=== PATIENT | female | born 1950 | race Caucasian/White ===

== ENCOUNTER → 2016-07-12 | Outpatient (CLI) | payer OTHER ==
[~2016-07-12] MED LIST: ATV/1 PO; CALC-51 PO; CHOL100010 PO; CIPR-255 PO; DNSIS60 IM; ESCI1TAB10 PO; IBAN150T PO; LEVO25TA5 PO; MELO15TA4 PO; METR-163 PO; MULT-506 PO; NRN/300 PO; OMEP20TA PO; OXYC-57 PO; OXYC5TAB PO; RIVA1TAB4 PO; TRAM-10 PO; ZNTT/150 PO; xarelto PO
[2016-07-12 13:07] LABS: ALT/SGPT 24 U/L (12-78); AST/SGOT 16 U/L (15-37); BLOOD UREA NITROGEN 18 mg/dl (7-18); BUN/CREATININE RATIO 21.3 (10-20); CALCIUM 8.7 mg/dl (8.5-10.1); CARBON DIOXIDE 26 mmol/L (21-32); CHLORIDE 104 mmol/L (98-107); CHOLESTEROL 155 mg/dl (0-200); CREATININE 0.86 mg/dl (0.60-1.20); GLUCOSE 94 mg/dl (70-99); POTASSIUM 3.7 mmol/L (3.5-5.1); SODIUM 142 mmol/L (136-145)
[2016-07-12 13:18] LABS: ALKALINE PHOSPHATASE 56 U/L (45-117); CHOLESTEROL/HDL RATIO 2.3; HDL CHOLESTEROL 67 mg/dl; LDL CHOLESTEROL CALCULATED 54 mg/dl; TRIGLYCERIDES 170 mg/dl (0-150); VERY LOW DENSITY LIPOPROT CALC 34 mg/dl
== END | disposition home or self-care (01) ==
LOC: C.LABBFT 09:47
PROVIDERS: ATTEND Nurse Practitioner
DX: E03.9 Hypothyroidism, unspecified (principal); Z13.6 Encounter for screening for cardiovascular disorders

== ENCOUNTER → 2016-07-21 | Outpatient (CLI) | payer OTHER ==
--- NOTE | 2016-07-21 08:36 | DIAGNOSTIC IMAGING REPORT ---
ABDOMINAL ULTRASOUND, RIGHT UPPER QUADRANT HISTORY: Right upper quadrant abdominal pain.. COMPARISON: None. FINDINGS: Pancreas: The pancreatic head and tail are obscured by overlying bowel gas. The remaining portions of the pancreas are within normal limits. Liver: Unremarkable. Gallbladder: No gallbladder wall thickening. No gallstones. CBD: 3 mm. Right kidney: Hypoechoic focus within the right renal sinus which may represent a peripelvic cyst versus prominent renal pelvis. No definite hydronephrosis. IMPRESSION: 1. Normal gallbladder. No gallstones. 2. Pancreas is not well visualized due to the overlying bowel gas. 3. Parapelvic cyst versus prominent right renal pelvis. No definite hydronephrosis. Electronically signed by: Carlos Black M.D. 07/21/2016 8:34 AM Dictated Date/Time: 07/21/2016 8:33 AM
== END | disposition home or self-care (01) ==
LOC: C.ULTR 07:58
PROVIDERS: ATTEND Nurse Practitioner
DX: R10.11 Right upper quadrant pain (principal)

== ENCOUNTER → 2016-08-07 | Outpatient (CLI) | payer OTHER ==
[~2016-08-07] MED LIST changes: +SINCALIDE IV SCH; +SODIUM CHLORIDE 0.9% IV SCH
--- NOTE | 2016-08-07 10:36 | DIAGNOSTIC IMAGING REPORT ---
NUCLEAR HEPATOBILIARY SCAN WITH EJECTION FRACTION IMAGING CLINICAL HISTORY: Postprandial right upper quadrant abdominal pain. COMPARISON STUDY: Abdominal ultrasound dated 07/21/2016. TECHNIQUE: Dynamic images of the liver and anterior abdomen were obtained every 20 minutes for a total of 60 minutes following the IV administration of 5.5mCi of technetium 99m Choletec. Further imaging was not obtained due to back pain. 1.24 mcg of sincalide was then injected with additional images acquired every 5 minutes for 45 minutes to calculate the gallbladder ejection fraction. FINDINGS: The hepatobiliary scan shows prompt and homogeneous hepatic uptake. There is visualized activity within the intra and extrahepatic biliary tree at 20 minutes, and within the gallbladder at 20 minutes. There is normal biliary to bowel transit, with small bowel visualized by 40 minutes. On the sincalide imaging, the gallbladder ejection fraction was measured at 89%. IMPRESSION: 1. Unremarkable nuclear hepatobiliary scan. There is no scintigraphic evidence of cholecystitis. 2. The gallbladder ejection fraction measured 89% which is normal. Electronically signed by: Wolf Torres M.D. 08/07/2016 10:35 AM Dictated Date/Time: 08/07/2016 10:33 AM
== END | disposition home or self-care (01) ==
LOC: C.NUCL 07:52
PROVIDERS: ATTEND Nurse Practitioner
DX: R10.11 Right upper quadrant pain (principal)

== ENCOUNTER 2016-08-30 17:34 | Inpatient (IN) | payer OTHER ==
[~2016-08-30] VITALS: Ht 147.3 cm; Wt 62.4 kg
[~2016-08-30 17:34] MED LIST changes: -ATV/1 PO; -CIPR-255 PO; -IBAN150T PO; -METR-163 PO; -OPTIRAY 320 IV PRN; -OXYC-57 PO
[2016-08-30] MEDS ORDERED: ONDANSETRON INJ 2 MG/ML 2 ML VIAL IV STA (17:45)
[2016-08-30] MEDS ORDERED: HYDROmorphone INJ 0.5 MG/0.5 ML SYR IV STA (17:45)
[2016-08-30] MEDS ORDERED: PIPERACILLIN/TAZOBACTAM 4.5 GM/100ML D5W IV STA (17:45)
[2016-08-30] MEDS ORDERED: IBAN150T PO (17:59)
[2016-08-30] MEDS ORDERED: ATV/1 PO (17:59)
[2016-08-30 18:27] LABS: BUN/CREATININE RATIO 12.9 (10-20); CREATININE 0.83 mg/dl (0.60-1.20); POTASSIUM 3.3 mmol/L (3.5-5.1)
--- NOTE | 2016-08-30 18:30 | EMERGENCY ROOM VISIT NOTE ---
History Report prepared by Sharmila: Clare Doe Under the Supervision of: Rissa NessO. First contact with patient: 17:36 Stated Complaint: perfed divertic History of Present Illness The patient is a 65 year old female who presents to the Emergency Room with complaints of worsening lower abdominal pain for the past 3 days. She was straining to have a bowel movement around 6pm 3 days ago and developed severe lower abdominal pain while trying to defecate. Her pain is bilateral, but worse in the LLQ. The next day she felt better but experienced the same pain again when having a bowel movement. She experienced diarrhea at that time. The patient has been experiencing crampy, lower abdominal pain since then. Last night and this morning her symptoms were worse and she developed associated nausea. She reports a fever with a temperature of 100.6. earlier today. The patient went to her PCP today and was sent to the hospital for an outpatient CT scan. This revealed perforated sigmoid diverticulitis with a 2x2x0.8cm contrast and gas containing fluid collection. She was sent to the ED for further evaluation. The patient denies vomiting, cough, and urinary symptoms. Source of History: patient Onset: 3 days ago Position: abdomen (LLQ) Symptom Intensity: severe Quality: cramping Timing: worsening Modifying Factors (Worsening): defecation Associated Symptoms: + diarrhea, + fevers, + nausea, No cough, No urinary symptoms, No vomiting Review of Systems See HPI for pertinent positives & negatives. A total of 10 systems reviewed and were otherwise negative. Past Medical & Surgical Medical Problems: (1) Diverticulitis (2) Paraesophageal hernia (3) Pulmonary embolism Surgical Problems: (1) H/O tubal ligation (2) History of appendectomy Family History No pertinent history stated. Social History Smoking Status: Never Smoker Marital Status: Housing Status: lives with significant other Current/Historical Medications Scheduled Calcium Carbonate-Vitamin D (Calcium), 3 TAB PO TID Cholecalciferol (Vitamin D), 1,000 INTER.UNIT PO QAM Ibandronate Sodium (Boniva), 150 MG PO MONTHLY Levothyroxine Sodium (Levothyroxine Sodium), 1 TAB PO QAM Meloxicam (Meloxicam), 15 MG PO HS Multivitamin (Multivitamin), 1 TAB PO QAM Allergies Coded Allergies: NO KNOWN DRUG ALLERGIES (Verified Allergy, Unknown, ., 08/30/16) Physical Exam Vital Signs Date Time Temp Pulse Resp B/P Pulse Ox O2 Delivery O2 Flow Rate FiO2 08/30/16 18:08 94 08/30/16 17:44 37.3 101 12 118/75 Physical Exam GENERAL: alert, sitting up in bed, well appearing, well nourished, no distress, non-toxic EYE EXAM: normal conjunctiva OROPHARYNX: no exudate, no erythema, lips, buccal mucosa, and tongue normal and mucous membranes are moist NECK: supple, no nuchal rigidity, no adenopathy, non-tender LUNGS: Clear to auscultation. Normal chest wall mechanics HEART: no murmurs, S1 normal and S2 normal ABDOMEN: abdomen soft, tender to palpation of LLQ, normo-active bowel sounds, no masses, no rebound or guarding. BACK: Back is symmetrical on inspection and there is no deformity, no midline tenderness, no CVA tenderness. SKIN: no rashes and no bruising UPPER EXTREMITIES: upper extremities are grossly normal. LOWER EXTREMITIES: No pitting edema. NEURO EXAM: Normal sensorium, cranial nerves II-XII grossly intact, normal speech, no gross weakness of arms, no gross weakness of legs. Medical Decision & Procedures Laboratory Results 08/30/16 17:55 Red Blood Count 4.06, Mean Corpuscular Volume 93.6, Mean Corpuscular Hemoglobin 31.8, Mean Corpuscular Hemoglobin Concent 33.9, Mean Platelet Volume 10.8, Neutrophils (%) (Auto) 76.5, Lymphocytes (%) (Auto) 14.4, Monocytes (%) (Auto) 8.5, Eosinophils (%) (Auto) 0.2, Basophils (%) (Auto) 0.2, Neutrophils # (Auto) 9.62, Lymphocytes # (Auto) 1.80, Monocytes # (Auto) 1.06, Eosinophils # (Auto) 0.02, Basophils # (Auto) 0.02 08/30/16 17:55 Test 08/30/16 17:55 08/30/16 18:12 08/30/16 18:42 White Blood Count 12.54 K/uL (4.8-10.8) Red Blood Count 4.06 M/uL (4.2-5.4) Hemoglobin 12.9 g/dL (12.0-16.0) Hematocrit 38.0 % (37-47) Mean Corpuscular Volume 93.6 fL (80-100) Mean Corpuscular Hemoglobin 31.8 pg (25-34) Mean Corpuscular Hemoglobin Concent 33.9 g/dl (32-36) Platelet Count 235 K/uL (130-400) Mean Platelet Volume 10.8 fL (7.4-10.4) Neutrophils (%) (Auto) 76.5 % Lymphocytes (%) (Auto) 14.4 % Monocytes (%) (Auto) 8.5 % Eosinophils (%) (Auto) 0.2 % Basophils (%) (Auto) 0.2 % Neutrophils # (Auto) 9.62 K/uL (1.4-6.5) Lymphocytes # (Auto) 1.80 K/uL (1.2-3.4) Monocytes # (Auto) 1.06 K/uL (0.11-0.59) Eosinophils # (Auto) 0.02 K/uL (0-0.5) Basophils # (Auto) 0.02 K/uL (0-0.2) RDW Standard Deviation 47.5 fL (36.4-46.3) RDW Coefficient of Variation 13.9 % (11.5-14.5) Immature Granulocyte % (Auto) 0.2 % Immature Granulocyte # (Auto) 0.02 K/uL (0.00-0.02) Prothrombin Time 11.2 SECONDS (9.0-12.0) Prothromb Time International Ratio 1.0 (0.9-1.1) Anion Gap 10.0 mmol/L (3-11) Est Creatinine Clear Calc Drug Dose 54.2 ml/min Estimated GFR () 87.0 Estimated GFR (Non- 75.0 BUN/Creatinine Ratio 12.9 (10-20) Calcium Level 9.0 mg/dl (8.5-10.1) Total Bilirubin 1.2 mg/dl (0.2-1) Direct Bilirubin 0.3 mg/dl (0-0.2) Aspartate Amino Transf (AST/SGOT) 8 U/L (15-37) Alanine Aminotransferase (ALT/SGPT) 19 U/L (12-78) Alkaline Phosphatase 75 U/L (45-117) Total Protein 7.5 gm/dl (6.4-8.2) Albumin 3.1 gm/dl (3.4-5.0) Lipase 133 U/L (73-393) Lactic Acid Level 0.9 mmol/L (0.4-2.0) Urine Color YELLOW Urine Appearance CLEAR (CLEAR) Urine pH 7.0 (4.5-7.5) Urine Specific [place] 1.045 (1.000-1.030) Urine Protein NEG (NEG) Urine Glucose (UA) NEG (NEG) Urine Ketones TRACE (NEG) Urine Occult Blood 1+ (NEG) Urine Nitrite NEG (NEG) Urine Bilirubin NEG (NEG) Urine Urobilinogen NEG (NEG) Urine Leukocyte Esterase NEG (NEG) Urine WBC (Auto) /hpf (0-5) Urine RBC (Auto) /hpf (0-4) Urine Hyaline Casts (Auto) /lpf (0-5) Urine Epithelial Cells (Auto) /lpf (0-5) Urine Bacteria (Auto) (NEG) Urine RBC 5-10 /hpf (0-4) Urine WBC 1-5 /hpf (0-5) Urine Epithelial Cells 0-5 /lpf (0-5) Urine Bacteria 1+ (NEG) Laboratory results per my review. Medications Administered Medications (Trade) Dose Ordered Sig/Triny Route Start Time Stop Time Status Last Admin Dose Admin Piperacillin Sod/ Tazobactam Sod (Zosyn Iv) 4.5 gm NOW STAT IV 08/30/16 17:45 08/30/16 17:46 DC 08/30/16 18:41 4.5 GM Hydromorphone HCl (Dilaudid Inj) 0.5 mg NOW STAT IV 08/30/16 17:45 08/30/16 17:46 DC 08/30/16 18:00 0.5 MG Ondansetron HCl (Zofran Inj) 4 mg NOW STAT IV 08/30/16 17:45 08/30/16 17:46 DC 08/30/16 18:00 4 MG ED Course ED COURSE: Vital signs were reviewed and showed tachycardia. The patients medical record was reviewed The above diagnostic studies were performed and reviewed. ED treatments and interventions as stated above. 1736: The patient was evaluated in room C8. A complete history and physical examination was performed. 1745: Zofran 4 mg IV, Dilaudid 0.5 mg IV, Zosyn 4.5 gm IV 1806: At this time I spoke with Dr. Flowers of general surgery. We discussed the patient's results and treatment plan. He will come to the ED to evaluate the patient for further management. 1813: Upon reevaluation, the patient is resting more comfortably. I discussed my findings with the patient and she understands and agrees with the treatment plan. Based on the patients age, coexisting illnesses, exam and lab findings the decision to treat as an inpatient was made. The patient remained stable while under my care. The patient will be evaluated for further management. Medical Decision Differential diagnoses includes but is not limited to gastritis, peptic ulcer disease, GERD, gallbladder disease, pancreatitis, small bowel obstruction, acute coronary syndrome, pericarditis, ischemic bowel, irritable bowel disease, irritable bowel syndrome, appendicitis, diverticulitis, malignancy, hernia, urinary tract infection, torsion, perforation, trauma, infectious. Patient is a 65-year-old female who presents to the ER for 4 days worth of left lower quadrant abdominal pain. This has been present and worsening over this time. She was worked up by her primary care doctor and had a CT done with blood work. Labs show a leukocytosis of 12,000 along with a mild hypokalemia. CT shows a perforated diverticulitis with a 2 x 2 centimeter fluid collection. Upon presentation IV was immediately established and blood cultures were obtained. She was given IV antibiotics along with IV Dilaudid. Surgery was consulted and she was evaluated at bedside. She is admitted to general surgery. Consults Time Called: 1750 Consulting Physician: Dr. Flowers Returned Call: [phone] At this time I spoke with Dr. Flowers of general surgery. We discussed the patient's results and treatment plan. He will come to the ED to evaluate the patient for further management. Impression Primary Impression: Perforated diverticulum Additional Impressions: Leukocytosis Hypokalemia Scribe Attestation The scribe's documentation has been prepared under my direction and personally reviewed by me in its entirety. I confirm that the note above accurately reflects all work, treatment, procedures, and medical decision making performed by me. Departure Information Dispostion Being Evaluated By Surgeon Jeff Crawford M.D. (PCP) Problem Qualifiers Additional Impressions: Leukocytosis Leukocytosis type: unspecified Qualified Codes: D72.829 - Elevated white blood cell count, unspecified
[2016-08-30 18:39] LABS: BASO % 0.2 %; BASO ABS # 0.02 K/uL (0-0.2); COMPLETE YES; EOS % 0.2 %; IG% 0.2 %; LYMPH % 14.4 %; MEAN CELL VOLUME 93.6 fL (80-100); MEAN CORPUSCULAR HEMOGLOBIN 31.8 pg (25-34); MEAN CORPUSCULAR HGB CONC 33.9 g/dl (32-36); MEAN PLATELET VOLUME 10.8 fL (7.4-10.4); MONO % 8.5 %; NEUT % 76.5 %; PLATELET COUNT 235 K/uL (130-400); RED BLOOD COUNT 4.06 M/uL (4.2-5.4); WHITE BLOOD COUNT 12.54 K/uL (4.8-10.8)
[2016-08-30] MEDS ORDERED: MoRPHine SULFATE 4 MG/ML 1 ML CARP\\VIAL IV PRN (18:45)
[2016-08-30] MEDS ORDERED: ONDANSETRON INJ 2 MG/ML 2 ML VIAL IV PRN (18:45)
[2016-08-30] MEDS ORDERED: OXYCODONE/ACETAMINOPHEN 5-325 TAB PO PRN (18:45)
[2016-08-30] MEDS ORDERED: LACTATED RINGER'S 1000ML 1,000 ML IV SCH (18:45)
[2016-08-30 19:05] LABS: URINE APPEARANCE CLEAR (CLEAR); URINE BILIRUBIN NEG (NEG); URINE COLOR YELLOW; URINE NITRITE NEG (NEG); URINE SPECIFIC GRAVITY 1.045 (1.000-1.030); UROBILINOGEN NEG (NEG)
[2016-08-30 19:06] LABS: MANUAL MICROSCOPIC REQUIRED? YES; REVIEW REQ? NO
[2016-08-30 19:14] LABS: URINE BACTERIA 1+ (NEG)
[2016-08-30 19:15] LABS: ZZUR CULT IF INDIC CLEAN CATCH YES
[2016-08-30 19:48] VITALS: BP 111/79; PULSE 99; TEMP 36.8; O2SAT 94; Ht 147.3 cm; Wt 62.4 kg
[2016-08-30 20:02] LABS: PROTHROMBIN TIME (PATIENT) 11.2 SECONDS (9.0-12.0)
[2016-08-30] MEDS ORDERED: PIPERACILL/TAZOBAC CONSULT ACTIVE PRN (20:15)
[2016-08-30] MEDS: HEPARIN SOD 5000 UNIT/0.5 ML CARP SQ SCH (20:37)
[2016-08-30] MEDS: NSS + 20MEQ KCL 1000ML 1,000 ML IV SCH (20:56)
[2016-08-30] MEDS: METRONIDAZOLE / NSS 500 MG in PREMIXED NSS 100 ML IV SCH (20:56)
[2016-08-30] MEDS: TEMAZEPAM 15 MG CAP PO PRN (22:12)
[2016-08-30 22:56] VITALS: BP 106/67; PULSE 91; TEMP 36.9; O2SAT 92
[2016-08-30] MEDS: PIPERACILL/TAZOBAC IV 3.375 GM in DEXTROSE 5% 100ML 100 ML IV SCH (23:32)
--- NOTE | 2016-08-31 00:23 | HISTORY & PHYSICAL EXAMINATION ---
DATE OF ADMISSION: 08/30/2016 Seen in the Emergency Room at approximately 6:30 in the evening. SUMMARY: A 65-year-old female that I was asked to see by the ER physician for what it sounds like a perforated diverticular problem. The patient stated that on Sunday she started experiencing some lower abdominal pain that actually felt better once she moved her bowels, but progressively got worse, and on Sunday somehow it felt better but by Sunday evening the pain really was quite excruciating. She toughed it out rather than coming down to the Emergency Room, but then on Sunday she was seen by her family physician who recommended a CT scan and she came in and obtained that with the findings looked like a perforated diverticular problem with a localized area of confined leak. The patient states the only pain that she has is whenever she moves around. Other than that, she is quite comfortable. Her past medical history is positive for having had a colonoscopy about 2 years ago, at that time, they did confirm as having diverticular problem, the rest of the colon was fine. PAST SURGICAL HISTORY: Include hysterectomy and she had a thyroidectomy. ALLERGIES: She has no known allergies. MEDICATIONS: The only medicines she takes at home is Meloxicam 50 mg tablet and thyroid replacement, Boniva once a month and calcium. She occasionally takes some antireflux medicine but not on routine basis, mostly because she had a hiatal hernia repaired laparoscopic, apparently was a complex paraesophageal hernia done a few years ago and she still has some symptoms of dysphagia associated with that. She does not work. PHYSICAL EXAMINATION: Tonight she is in no acute distress. VITAL SIGNS: When she came in showed a temperature of 37.3, pulse 101, respirations 12, blood pressure 118/75. GENERAL: She is lying comfortably in the bed and the ER. Her daughter is at the bedside and voicing no complaints. HEAD: Normocephalic. EYES: PERRLA. The sclerae are nonicteric. NECK: There is no cervical lymphadenopathy. Minimally appreciated scar from previous thyroidectomy. Oropharyngeal area is free of any gross pathology. Carotids are without any bruits. HEART: Normal sinus rhythm. LUNGS: Clear, although some distant breath sounds. ABDOMEN: Soft. She has some positive guarding in the suprapubic area to the left lower quadrant but definitely has no rebound. EXTREMITIES: Showed no pedal edema. DATA: CAT scan imaging was reviewed. The white cell count has been repeated here but apparently she had as an outpatient and according to the ER physician is only about 12. I do not have those records available now. The CAT scan finding shows basically confined perforation with some contrast into the mesentery of the sigmoid colon. IMPRESSION: At this point, I see no reason to take the patient to surgery, diverticular disease was discussed with the patient and her daughter including modalities of therapies and at this point if we can ride it out and treat it nonsurgically, I think she would be better served. If she does deteriorate on a clinical basis then any time will change course. She is agreeable with that.
[2016-08-31] MEDS: METRONIDAZOLE / NSS 500 MG in PREMIXED NSS 100 ML IV SCH ×3 (03:57→19:55)
[2016-08-31] MEDS: NSS + 20MEQ KCL 1000ML 1,000 ML IV SCH ×3 (03:57→19:55)
[2016-08-31] MEDS: LEVOTHYROXINE 25 MCG TAB PO SCH (05:47)
[2016-08-31 07:13] VITALS: BP 81/48; PULSE 76; TEMP 36.8; O2SAT 93
[2016-08-31 07:37] VITALS: BP 95/58
[2016-08-31] MEDS: PIPERACILL/TAZOBAC IV 3.375 GM in DEXTROSE 5% 100ML 100 ML IV SCH ×3 (07:41→23:27)
[2016-08-31] MEDS ORDERED: OXYCODONE/ACETAMINOPHEN 5-325 TAB PO PRN (07:45)
--- NOTE | 2016-08-31 07:49 | SURGERY PROGRESS NOTE ---
DATE: 08/31/2016 DATE: 08/31/2016. Soumya is resting comfortably. she feels much better. She has minimal lower abdominal pain compared to last evening. Her last vitals showed a temperature of 36.8, pulse 76, respirations 18, blood pressure 81/48, O2 sats 93 on room air. She states she is passing flatus. The abdomen is much softer than it had been. She still has some guarding in the right lower quadrant and suprapubic area. At this point, we will start her on liquids, continue with broad-spectrum antibiotics. I suspect she will be here at least another day until course is reversed and then treat her as an outpatient with p.o. antibiotics for approximately 1 week. COURTNEY
[2016-08-31] MEDS: HEPARIN SOD 5000 UNIT/0.5 ML CARP SQ SCH ×2 (09:05→21:08)
[2016-08-31 15:29] VITALS: BP 97/62; PULSE 73; TEMP 37.1; O2SAT 94
[2016-08-31] MEDS: TEMAZEPAM 15 MG CAP PO PRN (21:56)
[2016-08-31 23:53] VITALS: BP 93/58; PULSE 69; TEMP 36.8; O2SAT 90
[2016-09-01] MEDS: LEVOTHYROXINE 25 MCG TAB PO SCH (04:50)
[2016-09-01] MEDS: METRONIDAZOLE / NSS 500 MG in PREMIXED NSS 100 ML IV SCH ×2 (04:50→12:25)
[2016-09-01] MEDS: NSS + 20MEQ KCL 1000ML 1,000 ML IV SCH ×2 (04:50→12:25)
[2016-09-01 07:50] VITALS: BP 88/58; PULSE 64; TEMP 36.6; O2SAT 96
[2016-09-01] MEDS ORDERED: OXYC-57 PO (07:50)
[2016-09-01] MEDS ORDERED: METR-163 PO (07:50)
[2016-09-01] MEDS ORDERED: CIPR-255 PO (07:50)
--- NOTE | 2016-09-01 07:50 | SURGERY PROGRESS NOTE ---
DATE: 09/01/2016 DATE: 09/01/2016. Soumya is resting comfortably. She said she had a good day yesterday with minimal abdominal discomfort. Her last vitals showed a temperature of 36.8, a pulse 69, respirations 18, blood pressure 93/58, O2 sat 90 on room air. I\T\O is noted. Her abdomen is soft. It is not distended. She is not tender except for one area where she had a heparin shot. She is moving her bowels, although liquid, and she is tolerating a diet and from my point of view at this time, I discussed with her possibility of going home which I have no objection. She should be continued on a low fiber diet and continued on oral antibiotics for approximately 1 week, give her Cipro and Flagyl, and follow up in the office next week. If at any time things deteriorate, she is to call us immediately. COURTNEY
--- NOTE | 2016-09-01 07:53 | Discharge Instructions ---
Discharge Instructions Date of Service Sep 01, 2016. Admission Reason for Admission: Diverticulitis Discharge Discharge Diagnosis / Problem: diverticulitis Discharge Goals Goal(s): Decrease discomfort Activity Recommendations Activity Limitations: resume your previous activity . Instructions / Follow-Up Instructions / Follow-Up Dr. Rodriguez next week, call [phone] to schedule, [facility] Current [facility] Diet Patient's current hospital diet: Full Liquid Diet Discharge Diet Recommended Diet: Full Liquid Diet (advance to low fiber as tolerated) Pending Studies Studies pending at discharge: no Laboratory Results Lipid Panel Test 07/12/16 09:52 Range/Units Triglycerides Level 170 H 0-150 mg/dl Cholesterol Level 155 0-200 mg/dl HDL Cholesterol 67 mg/dl Cholesterol/HDL Ratio 2.3 LDL Cholesterol, Calculated 54 mg/dl Medical Emergencies . Who to Call and When: Medical Emergencies: If at any time you feel your situation is an emergency, please call 911 immediately. . Non-Emergent Contact Non-Emergency issues call your: Surgeon Call Non-Emergent contact if: you have a fever, temperature is above 101.5, your pain is not controlled . "Provider Documentation" section prepared by Yovani Charles. VTE Core Measure Inpt VTE Proph given/why not?: Unfractionated heparin SQ, SCD's
[2016-09-01] MEDS: HEPARIN SOD 5000 UNIT/0.5 ML CARP SQ SCH (08:24)
[2016-09-01] MEDS: PIPERACILL/TAZOBAC IV 3.375 GM in DEXTROSE 5% 100ML 100 ML IV SCH ×2 (08:25→16:00)
[2016-09-01 08:56] LABS: BASO % 0.4 %; BASO ABS # 0.02 K/uL (0-0.2); COMPLETE YES; EOS % 5.5 %; HEMATOCRIT 32.8 % (37-47); IG% 0.2 %; LYMPH % 26.9 %; LYMPH ABS # 1.31 K/uL (1.2-3.4); MEAN CELL VOLUME 93.2 fL (80-100); MEAN CORPUSCULAR HEMOGLOBIN 31.3 pg (25-34); MEAN CORPUSCULAR HGB CONC 33.5 g/dl (32-36); MEAN PLATELET VOLUME 10.4 fL (7.4-10.4); MONO % 7.8 %; NEUT % 59.2 %; PLATELET COUNT 225 K/uL (130-400); RED BLOOD COUNT 3.52 M/uL (4.2-5.4); WHITE BLOOD COUNT 4.87 K/uL (4.8-10.8)
[2016-09-01 11:48] VITALS: BP 101/64; PULSE 63; TEMP 36.9; O2SAT 94
[2016-09-01 14:21] VITALS: BP 101/64; PULSE 63; TEMP 36.9; O2SAT 94
--- NOTE | 2016-09-04 14:30 | DISCHARGE SUMMARY ---
PRIMARY DISCHARGE DIAGNOSIS: Diverticulitis with microperforation. SECONDARY DISCHARGE DIAGNOSIS: Hypothyroidism. PROCEDURE PERFORMED: None. HOSPITAL COURSE: The patient is a 65-year-old female who presented to the Emergency Department with 3 days of left lower quadrant pain, nausea and a temperature of 100. Her white count was 12,000. CT showed diverticulitis of the proximal descending colon with a 2 cm collection of gas and contrast extending into the mesentery. She was admitted to the surgery service that evening started on IV Zosyn and Flagyl. She did not have any peritoneal signs. The next morning, her pain and nausea were improved. She was afebrile overnight and her heart rate had normalized. She was started on clear liquids. By the next day she had multiple loose bowel movements. Her white count normalized to 4000. She was tolerating full liquids. She had minimal tenderness. She was stable for discharge on oral antibiotics. DISCHARGE INSTRUCTIONS: Discharge home. Follow up with Dr. Rodriguez in 7-10 days. She was given instructions on a low fiber diet which she may advance from full liquids to a low residue at home as tolerated over the next few days. DISCHARGE MEDICATIONS: Cipro 500 mg p.o. b.i.d. and Flagyl 500 mg p.o. t.i.d. x10 days, Percocet 1-2 tablets every 4 hours as needed and resume home medications levothyroxine 25 mcg daily, Mobic 15 mg at bedtime, daily multivitamin, Boniva 150 mg monthly, calcium and vitamin D supplements.
== END 2016-09-01 16:26 | disposition home or self-care (01) | DRG 392 ==
LOC: ENRESERVDT → ENRESERVTM → EDBD 17:34 → C.EDC 17:35 → C.MSW 18:47
PROVIDERS: ADMIT Surgery; ATTEND Surgery
DX: K57.20 Diverticulitis of large intestine with perforation and abscess without bleeding (principal); Z79.899 Other long term (current) drug therapy

== ENCOUNTER → 2016-08-30 | Outpatient (CLI) | payer OTHER ==
[~2016-08-30] MED LIST changes: -SINCALIDE IV SCH; -SODIUM CHLORIDE 0.9% IV SCH
[2016-08-30 12:11] LABS: BASO % 0.1 %; BASO ABS # 0.01 K/uL (0-0.2); COMPLETE YES; EOS % 0.1 %; HEMATOCRIT 39.1 % (37-47); IG% 0.2 %; LYMPH % 9.7 %; LYMPH ABS # 1.23 K/uL (1.2-3.4); MEAN CELL VOLUME 93.3 fL (80-100); MEAN CORPUSCULAR HEMOGLOBIN 30.5 pg (25-34); MEAN CORPUSCULAR HGB CONC 32.7 g/dl (32-36); MEAN PLATELET VOLUME 11.1 fL (7.4-10.4); MONO % 8.7 %; NEUT % 81.2 %; PLATELET COUNT 250 K/uL (130-400); RED BLOOD COUNT 4.19 M/uL (4.2-5.4); WHITE BLOOD COUNT 12.74 K/uL (4.8-10.8)
[2016-08-30 12:18] LABS: ALT/SGPT 15 U/L (12-78); BLOOD UREA NITROGEN 13 mg/dl (7-18); BUN/CREATININE RATIO 15.7 (10-20); CARBON DIOXIDE 29 mmol/L (21-32); CHLORIDE 100 mmol/L (98-107); CREATININE 0.84 mg/dl (0.60-1.20); GLUCOSE 116 mg/dl (70-99); POTASSIUM 3.4 mmol/L (3.5-5.1); SODIUM 139 mmol/L (136-145)
[2016-08-30 12:21] LABS: ALB/GLOB RATIO 0.8 (0.9-2); ALKALINE PHOSPHATASE 77 U/L (45-117); AST/SGOT 9 U/L (15-37)
== END | disposition home or self-care (01) ==
LOC: C.LABBFT 09:54
PROVIDERS: ATTEND Nurse Practitioner
DX: R10.31 Right lower quadrant pain (principal)

== ENCOUNTER → 2016-08-30 | Outpatient (CLI) | payer OTHER ==
[~2016-08-30] MED LIST changes: +OPTIRAY 320 IV PRN
--- NOTE | 2016-08-30 17:01 | DIAGNOSTIC IMAGING REPORT ---
CT OF THE ABDOMEN AND PELVIS WITH CONTRAST CLINICAL HISTORY: Lower abdominal pain. Evaluate for acute diverticulitis. COMPARISON STUDY: Right upper quadrant ultrasound July 21, 2016. TECHNIQUE: Following IV administration of 116 mL of Optiray-320, axial images of the abdomen and pelvis were obtained from the lung bases to the proximal femurs. Images were reviewed in the axial, sagittal, and coronal planes. IV contrast was administered without complication. Oral contrast was administered. CT DOSE: 295.37 mGy.cm FINDINGS: Visualized portions of the lower chest demonstrate a moderate sized hiatal hernia. A 7 mm hypodense right hepatic lobe lesion is too small to characterize but likely reflects a cyst. The spleen, adrenal glands and pancreas are normal. There are bilateral parapelvic cysts. Note is made of sigmoid diverticulosis. There is moderate infiltration adjacent to the proximal sigmoid colon with an associated contrast and gas containing collection that measures 2.5 x 2.4 x 0.8 cm which extends superiorly from the proximal sigmoid colon into the mesentery. This reflects a contained leak. No additional fluid collections are present. There is no bowel obstruction. There is no lymphadenopathy. No suspicious skeletal lesions are identified. IMPRESSION: Findings consistent with perforated acute sigmoid diverticulitis with an associated small 2.5 x 2.4 x 0.8 cm contrast and gas containing pericolonic fluid collection which extends superiorly into the sigmoid mesentery. This collection contains extravasated oral contrast from the perforation. Moderate inflammation. Electronically signed by: Shhaeen Crocker M.D. 08/30/2016 5:00 PM Dictated Date/Time: 08/30/2016 4:52 PM
== END | disposition home or self-care (01) ==
LOC: C.CTS 15:42
PROVIDERS: ATTEND Internal Medicine
DX: R10.31 Right lower quadrant pain (principal)

== ENCOUNTER → 2016-09-12 | Outpatient (CLI) | payer OTHER ==
[~2016-09-12] MED LIST changes: +CIPR-255 PO; -DNSIS60 IM; -ESCI1TAB10 PO; +IBAN150T PO; +METR-163 PO; -NRN/300 PO; -OMEP20TA PO; +OXYC-57 PO; -OXYC5TAB PO; -RIVA1TAB4 PO; -TRAM-10 PO; -ZNTT/150 PO; -xarelto PO
--- NOTE | 2016-09-12 12:44 | DIAGNOSTIC IMAGING REPORT ---
VENOUS DOPPLER LEFT ARM UPPER EXTREMITY VENOUS DOPPLER HISTORY: Pain. Edema. LEFT UPPER EXTREMITY, PAIN ,SWELLING, LUMPS COMPARISON STUDY: None. FINDINGS: The internal jugular vein is patent. There is normal flow within the subclavian vein. There is normal flow and compressibility within the left axillary, basilic, brachial, radial, ulnar, and visualized cephalic veins. No superficial thrombus within the left cephalic and left forearm region. IMPRESSION: 1. Study is negative for deep venous thrombosis. 2. The study is positive for superficial thrombophlebitis involving the left cephalic vein as well as a small superficial venous structure of the left forearm Electronically signed by: Enmanuel Vargas M.D. 09/12/2016 12:41 PM Dictated Date/Time: 09/12/2016 12:40 PM
== END | disposition home or self-care (01) ==
LOC: C.ULTRBC 11:15
PROVIDERS: ATTEND Nurse Practitioner
DX: M79.89 Other specified soft tissue disorders (principal)

== ENCOUNTER → 2016-12-27 | Outpatient (CLI) | payer OTHER ==
[~2016-12-27] MED LIST changes: -METR-163 PO
[2016-12-27 17:47] LABS: ALT/SGPT 24 U/L (12-78); AST/SGOT 20 U/L (15-37); BLOOD UREA NITROGEN 18 mg/dl (7-18); BUN/CREATININE RATIO 25.9 (10-20); CARBON DIOXIDE 27 mmol/L (21-32); CHLORIDE 108 mmol/L (98-107); GLUCOSE 100 mg/dl (70-99); SODIUM 142 mmol/L (136-145)
[2016-12-27 17:58] LABS: ALKALINE PHOSPHATASE 59 U/L (45-117)
[2016-12-27 18:01] LABS: BASO % 0.3 %; BASO ABS # 0.02 K/uL (0-0.2); COMPLETE YES; EOS % 0.8 %; HEMATOCRIT 39.2 % (37-47); IG% 0.2 %; LYMPH % 41.3 %; LYMPH ABS # 2.51 K/uL (1.2-3.4); MEAN CELL VOLUME 95.1 fL (80-100); MEAN CORPUSCULAR HEMOGLOBIN 31.3 pg (25-34); MEAN CORPUSCULAR HGB CONC 32.9 g/dl (32-36); MEAN PLATELET VOLUME 10.8 fL (7.4-10.4); MONO % 8.1 %; NEUT % 49.3 %; PLATELET COUNT 253 K/uL (130-400); RED BLOOD COUNT 4.12 M/uL (4.2-5.4); WHITE BLOOD COUNT 6.08 K/uL (4.8-10.8)
== END | disposition home or self-care (01) ==
LOC: C.LABBFT 11:53
PROVIDERS: ATTEND Nurse Practitioner
DX: M45.9 Ankylosing spondylitis of unspecified sites in spine (principal); R63.4 Abnormal weight loss

== ENCOUNTER → 2016-12-28 | Outpatient (CLI) | payer OTHER ==
--- NOTE | 2016-12-28 16:06 | DIAGNOSTIC IMAGING REPORT ---
CHEST 2 VIEWS ROUTINE CLINICAL HISTORY: 66 years-old Female presenting with ABNORMAL WEIGHT LOSS. TECHNIQUE: PA and lateral views of the chest were obtained. COMPARISON: 10/30/2015. FINDINGS: 30 mediastinal silhouette normal. Lungs and pleural spaces clear. Osseous structures normal. Surgical clips project over the left upper quadrant. Gas noted beneath the hemidiaphragms. IMPRESSION: 1. No acute cardiopulmonary disease. Electronically signed by: Rosalio Rose M.D. 12/28/2016 4:05 PM Dictated Date/Time: 12/28/2016 4:03 PM
== END | disposition home or self-care (01) ==
LOC: C.RAD 15:29
PROVIDERS: ATTEND Nurse Practitioner
DX: R63.4 Abnormal weight loss (principal)

== ENCOUNTER → 2017-01-04 | Outpatient (CLI) | payer OTHER ==
[2017-01-04 17:53] LABS: URINE APPEARANCE CLEAR (CLEAR); URINE BILIRUBIN NEG (NEG); URINE COLOR YELLOW; URINE EPITHELIAL CELL AUTO 0-5 /lpf (0-5); URINE NITRITE NEG (NEG); URINE SPECIFIC GRAVITY 1.024 (1.000-1.030); UROBILINOGEN NEG (NEG); ZZUR CULT IF INDIC CLEAN CATCH NO
[2017-01-04 17:59] LABS: MANUAL MICROSCOPIC REQUIRED? NO; REVIEW REQ? NO
[2017-01-07 22:32] LABS: IGA SERUM 228 mg/dL (81-463); TIS TRANS IGA 1 U/mL (<4)
== END | disposition home or self-care (01) ==
LOC: C.LABBFT 10:39
PROVIDERS: ATTEND Physician Assistant
DX: R63.4 Abnormal weight loss (principal)

== ENCOUNTER → 2017-01-09 | Outpatient (CLI) | payer OTHER ==
--- NOTE | 2017-01-09 11:20 | DIAGNOSTIC IMAGING REPORT ---
PELVIC COMPLETE NON OB, TRANSVAG-FEMALE PELVIS CLINICAL HISTORY: 66 years-old Female presenting with unexplained weight loss, history of tubal ligation, no abnormal bleeding, postmenopausal, no pelvic pain. TECHNIQUE: Real-time grayscale and color and spectral Doppler ultrasound imaging of the pelvis was performed first using a transabdominal probe and subsequently transvaginal for better characterization. COMPARISON: CT from 08/30/2016. FINDINGS: Uterus: A hypoechoic 1.0 x 1.2 x 0.7 cm mass noted in the anterior lower uterine body containing a hyperechogenic focus centrally, likely partially calcified fibroid. Retroverted. The uterus measures 5.3 x 2.1 x 3.5 cm. Endometrial stripe measures 3 mm in thickness. Endometrium normal-appearing. Cervix contains a nabothian cyst. Right adnexa: Right ovary normal. Right ovary measures 2.1 x 0.8 x 1.3 cm. Normal color Doppler flow and arterial and venous waveforms within the ovarian parenchyma. Left adnexa: Left ovary not visualized. No adnexal mass. Other: No free fluid. IMPRESSION: 1. Nonvisualization of the left ovary. No adnexal masses. 2. Suspected partially calcified small uterine fibroid. 3. No abnormal endometrial thickening. Electronically signed by: Rosalio Rose M.D. 01/09/2017 11:19 AM Dictated Date/Time: 01/09/2017 11:15 AM
== END | disposition home or self-care (01) ==
LOC: C.ULTR 10:16
PROVIDERS: ATTEND Internal Medicine
DX: R63.4 Abnormal weight loss (principal)

== ENCOUNTER → 2017-01-17 | Outpatient (CLI) | payer OTHER ==
--- NOTE | 2017-01-17 13:33 | DIAGNOSTIC IMAGING REPORT ---
GASTRIC EMPTYING CLINICAL HISTORY: 66 years-old Female presenting with abnormal weight loss. TECHNIQUE: Following the oral administration of 1 mCi of technetium 99m sulfur colloid in egg sandwich and 8 ounces of water, static abdominal images are obtained anteriorly and posteriorly at 0 minutes, 1 hour, 2 hour, and 4 hour time intervals. Gastric emptying was calculated utilizing the geometric mean method. COMPARISON: CT from 08/30/2016. FINDINGS: There is approximately 62% activity remaining at the 1 hour time interval, 23% remaining at the 2 hour time interval (normal is less than 60%), and 3% activity remaining at the 4 hour time interval (normal is less than 10%). IMPRESSION: Findings are consistent with normal gastric imaging. Electronically signed by: Rosalio Rose M.D. 01/17/2017 1:32 PM Dictated Date/Time: 01/17/2017 1:31 PM
== END | disposition home or self-care (01) ==
LOC: C.NUCL 08:53
PROVIDERS: ATTEND Physician Assistant
DX: R63.4 Abnormal weight loss (principal)

== ENCOUNTER → 2017-02-13 | Outpatient (CLI) | payer OTHER ==
[2017-02-13 16:18] LABS: BASO % 0.3 %; BASO ABS # 0.02 K/uL (0-0.2); COMPLETE YES; HEMATOCRIT 40.1 % (37-47); IG% 0.1 %; LYMPH % 37.1 %; LYMPH ABS # 2.69 K/uL (1.2-3.4); MEAN CELL VOLUME 95.5 fL (80-100); MEAN CORPUSCULAR HEMOGLOBIN 31.7 pg (25-34); MEAN CORPUSCULAR HGB CONC 33.2 g/dl (32-36); MEAN PLATELET VOLUME 10.1 fL (7.4-10.4); MONO % 8.5 %; PLATELET COUNT 256 K/uL (130-400); WHITE BLOOD COUNT 7.26 K/uL (4.8-10.8)
[2017-02-13 16:45] LABS: ALT/SGPT 22 U/L (12-78); AST/SGOT 19 U/L (15-37); CREATININE 0.72 mg/dl (0.60-1.20)
[2017-02-13 16:48] LABS: ALKALINE PHOSPHATASE 65 U/L (45-117)
== END | disposition home or self-care (01) ==
LOC: C.LAB1850 15:32
PROVIDERS: ATTEND Internal Medicine Rheumatology
DX: M45.9 Ankylosing spondylitis of unspecified sites in spine (principal); M81.0 Age-related osteoporosis without current pathological fracture; M46.1 Sacroiliitis, not elsewhere classified; Z79.1 Long term (current) use of non-steroidal anti-inflammatories (NSAID); E55.9 Vitamin D deficiency, unspecified

== ENCOUNTER → 2017-04-23 | Outpatient (CLI) | payer OTHER ==
[~2017-04-23] MED LIST changes: -OXYC-57 PO
--- NOTE | 2017-04-24 15:09 | MAMMOGRAPHY REPORT ---
BILATERAL DIGITAL SCREENING MAMMOGRAM TOMOSYNTHESIS WITH CAD: 04/23/2017 CLINICAL HISTORY: Routine screening. Patient has no complaints. TECHNIQUE: Breast tomosynthesis in addition to standard 2D mammography was performed. Current study was also evaluated with a Computer Aided Detection (CAD) system. COMPARISON: Comparison is made to exams dated: 04/18/2016 mammogram, 04/16/2015 mammogram, 4 mammogram, 08/26/2012 mammogram, 05/31/2011 mammogram, and 05/04/2010 mammogram - [facility]. BREAST COMPOSITION: There are scattered areas of fibroglandular density in both breasts. FINDINGS: The parenchymal pattern is unchanged. No developing mass, architectural distortion or clus ter of suspicious microcalcifications is seen in either breast. IMPRESSION: ACR BI-RADS CATEGORY 2: BENIGN There is no mammographic evidence of malignancy. A 1 year screening mammogram is recommended. The pa tient will receive written notification of the results. Approximately 10% of breast cancers are not detected with mammography. A negative mammographic report should not delay biopsy if a clinically suggestive mass is present. Johana Maravilla M.D. ay/:04/23/2017 16:27:52 Tower Equipment Installer: Duke Morales, M, [facility] letter sent: Normal 1/2 BI-RADS Code: ACR BI-RADS Category 2: Benign
== END | disposition home or self-care (01) ==
LOC: C.MAMM 14:13
PROVIDERS: ATTEND Obstetrics & Gynecology
DX: Z12.31 Encounter for screening mammogram for malignant neoplasm of breast (principal)

== ENCOUNTER → 2017-05-08 | Outpatient (CLI) | payer OTHER ==
[2017-05-08 16:29] LABS: MEAN CELL VOLUME 94.6 fL (80-100); MEAN CORPUSCULAR HEMOGLOBIN 31.7 pg (25-34); MEAN CORPUSCULAR HGB CONC 33.5 g/dl (32-36); MEAN PLATELET VOLUME 10.8 fL (7.4-10.4); PLATELET COUNT 270 K/uL (130-400); RED BLOOD COUNT 4.23 M/uL (4.2-5.4); WHITE BLOOD COUNT 7.37 K/uL (4.8-10.8)
[2017-05-08 16:40] LABS: PARTIAL THROMBOPLASTIN RATIO 0.9; PROTHROMBIN TIME (PATIENT) 10.2 SECONDS (9.0-12.0)
[2017-05-08 16:48] LABS: BLOOD UREA NITROGEN 19 mg/dl (7-18); BUN/CREATININE RATIO 15.8 (10-20); CARBON DIOXIDE 26 mmol/L (21-32); CHLORIDE 104 mmol/L (98-107); CREATININE 1.19 mg/dl (0.60-1.20); GLUCOSE 110 mg/dl (70-99); SODIUM 139 mmol/L (136-145)
== END | disposition home or self-care (01) ==
LOC: C.LAB1850 15:22
PROVIDERS: ATTEND Internal Medicine Interventional Cardiology
DX: Z01.818 Encounter for other preprocedural examination (principal)

== ENCOUNTER 2017-05-10 06:02 | Day surgery (SDC) | payer OTHER ==
[~2017-05-10] VITALS: Ht 147.3 cm; Wt 52.3 kg
[2017-05-10 06:49] VITALS: BP 113/72; PULSE 86; TEMP 36.5; O2SAT 97; Ht 147.3 cm; Wt 52.3 kg
[2017-05-10] MEDS ORDERED: MIDAZOLAM HCL 1 MG/ML 2ML VIAL ONE (07:34)
[2017-05-10] MEDS ORDERED: LIDOCAINE HCL 1% 20 ML VIAL ONE (07:34)
[2017-05-10] MEDS ORDERED: FENTANYL CITRATE INJ 50 MCG/1 ML 2 ML VIAL ONE (07:34)
[2017-05-10] MEDS ORDERED: LIDOCAINE/EPINEPHRINE 1% INJ 50 ML VIAL ONE (07:34)
[2017-05-10] MEDS ORDERED: SODIUM BICARB 8.4% INJ 50 MEQ/50 ML SYR IV ONE (07:34)
[2017-05-10 07:46] VITALS: BP 113/72; PULSE 86; TEMP 36.5; O2SAT 97
--- NOTE | 2017-05-10 08:11 | History & Physical Bridge Note ---
H&P Re-Evaluation Bridge Note: I have examined the patient, reviewed the History & Physical and in the interval since the performance of the History & Physical I have noted the following changes of clinical significance: No changes noted
--- NOTE | 2017-05-10 08:12 | Procedure Note ---
Pre-Mod Sedation Assessment General Date of Moderate Sedation: May 10, 2017. Vital Signs: Vital Signs Past 12 Hours Date Time Temp Pulse Resp B/P (MAP) Pulse Ox O2 Delivery O2 Flow Rate FiO2 05/10/17 07:46 36.5 86 18 113/72 97 Room Air 05/10/17 06:49 36.5 86 18 113/72 (86) 97 Room Air Review Cardiovascular: regular rate, rhythm, no edema Abdomen: normal bowel sounds, non tender Lungs: chest non-tender, lungs clear Airway Class: III Pre-Sedation Airway Assessment Oral Cavity: WNL Able to Visualize Vocal Cords: No Short Thick Neck: No Hx of Sleep Apnea: No Smoking Status: Never Smoker Mallampati Classification: Class III ASA Classification: Class III Procedure Planning Contraindications-for Mod Sed: None Yes Notes The planned sedation has been discussed with the patient and consent obtained. I have identified the patient, determined the appropriateness of sedation and have assessed the patient immediately prior to the procedure. All medicine(s) and interventions are by my order.
--- NOTE | 2017-05-10 08:36 | History and Physical ---
History & Physical Date May 10, 2017. Chief Complaint Painful varicosities. History of Present Illness Mrs. Fuentes is a very pleasant 66-year-old woman here for recurrent painful varicosities. She has endorsed left lower extremity painful varicosities for more than 6 months. She states this all began back in October of 2015 she underwent a gastric bypass for severe reflux/hiatal hernia. That procedure was complicated by a pulmonary embolism for which she was started on anticoagulation for 3 months. States she was tested for thrombophilia. She later reports a perforated bowel requiring repeat surgery which was complicated by superficial thrombosis at an upper extremity IV site as well as pain in her left leg which was thought secondary to a superficial lower extremity thrombus. No evidence of DVT on duplex. Patient reports a history of prior lower extremity blood clot when she was a teenager in the setting of control use. No other history of prior blood clots. Posterior varicosities on the left leg associated with leg heaviness. No significant lower extremity edema. No bleeding. Venous reflux study completed in the interim showed borderline left GSV dilation at the SFJ with some pathologic reflux in the mid segment. Left SSV with associated varices, dilated but no significant reflux. Past Medical/Surgical History Medical Problems: (1) Diverticulitis (2) Paraesophageal hernia (3) Pulmonary embolism Surgical Problems: (1) H/O tubal ligation (2) History of appendectomy Additional History Hepatic Disease: No Endocrine Disorder: Yes Kidney Disease: No Hypertension: Yes Heart Disease: No Bleeding Tendencies: thrombophillia Infectious Diseases: No Allergies Coded Allergies: NO KNOWN DRUG ALLERGIES (Verified Allergy, Unknown, ., 05/10/17) Home Medications Scheduled Calcium Carbonate-Vitamin D (Calcium), 3 TAB PO TID Cholecalciferol (Vitamin D), 1,000 INTER.UNIT PO QAM Ibandronate Sodium (Boniva), 150 MG PO MONTHLY Levothyroxine Sodium (Levothyroxine Sodium), 1 TAB PO QAM Meloxicam (Meloxicam), 15 MG PO DAILY Multivitamin (Multivitamin), 1 TAB PO QAM Physical Examination Skin: warm/dry Eyes: normal inspection Head: normocephalic Neck: supple Respiratory/Chest: lungs clear, normal breath sounds Cardiovascular: regular rate, rhythm, no edema Abdomen / GI: normal bowel sounds Extremities: normal inspection Diagnosis Chronic venous insufficiency ASA Classification: ASA Class III Plan of Treatment Left GSV ablation
[2017-05-10] MEDS ORDERED: SODIUM CHLORIDE 0.9% 1000ML 1,000 ML IV SCH (09:00)
[2017-05-10] MEDS ORDERED: LIDOCAINE HCL 1% 20 ML VIAL SQ ONE (09:09)
--- NOTE | 2017-05-10 10:01 | Procedure Note ---
Post-Mod Sedation Assessment General Date of Moderate Sedation May 10, 2017. Vital Signs: Vital Signs Past 12 Hours Date Time Temp Pulse Resp B/P (MAP) Pulse Ox O2 Delivery O2 Flow Rate FiO2 05/10/17 07:46 36.5 86 18 113/72 97 Room Air 05/10/17 06:49 36.5 86 18 113/72 (86) 97 Room Air Review - Discharge Criteria Vital Signs Stable: Yes Alert/Oriented/Conversant: Yes Returned to Baseline Mental St: Yes Nausea Absent/Minimal: Yes Pain/Discomfort/Absent/Minimal: Yes Normal/Baseline Respirations: Yes Active Bleeding?: No Pt Received D/C Instructions: N/A Prescriptions Given: None Specific Proced. D/C Criteria Distal Pulses Present (Cardiac: Yes Groin site assessed-Card Cath: N/A Voided Prior To Discharge: N/A Discharged Patients Adult Escort/Transportation: Yes
--- NOTE | 2017-05-10 10:03 | [facility] Operative Report ---
Operative Report Operative Date May 10, 2017. Pre-Operative Diagnosis PAD Post-Operative Diagnosis Same Procedure(s) Performed Left Leg Greater Saphenous Vein Radiofrequency Ablation Surgeon Dr. Nickerson Estimated Blood Loss 5 Findings Dilated GSV at the SFJ Specimens none Drains None Anesthesia Local Complication(s) None Disposition Recovery Room / PACU Indications Venous insufficiency. Lower extremity pain Description of Procedure US guided access Left GSV above the knee. Catheter inserted, 3cm from SFJ. Tumescent injected. US confirmed not in deep system. 2:00, 6 cycles of RFA to left GSV. No complications. Patient tolerated well. US confirmed no DVT post procedure. I attest to the content of the Intraoperative Record and any orders documented therein. Any exceptions are noted below.
--- NOTE | 2017-05-10 10:06 | Discharge Instructions ---
Discharge Instructions Procedure Procedure Date: May 10, 2017. Reason for Visit: Chronic Venous Insufficiency. Discharge Discharge Date: May 10, 2017. Discharge Diagnosis: Chronic venous insufficiency Last Recorded Wt (Kilograms): 52.3 Anesthesia Post Anesthesia Instructions: If you have had General Anesthesia or IV Sedation: * Do not drive today. * Resume driving when surgeon permits. * Do not make important decisions or sign legal documents today. * Call surgeon for: 1. Temperature elevations greater than 101 degrees F. 2. Uncontrollable pain. 3. Excessive bleeding. 4. Persistent nausea and vomiting. 5. Medication intolerance (nausea, vomiting or rash). * For nausea and vomiting use only clear liquids such as: tea, soda, bouillon until nausea subsides, then gradually increase diet as tolerated. * If you have any concerns or questions, call your surgeon's office. If physician is unavailable and it is an emergency, call 911 or go to the nearest emergency room. Instructions Activity Recommendations: limitations as noted below Recommended Home Diet: resume previous diet Allergies: Coded Allergies: NO KNOWN DRUG ALLERGIES (Verified Allergy, Unknown, ., 05/10/17) Follow Up Additional Instructions: Follow instructions as outlined in paperwork from Dr. Nickerson' office. Up walking today. Follow up Ultrasound as scheduled. GEORGE wrap for 48 hrs, then wear compression stockings. Post ultrasound wear compression stockings indefinitely. Any severe pain, present to the emergency room for evaluation for DVT. Follow-up with: As scheduled Heidi Enciso Recommendations: Call your doctor if: * Temperature above 101 degrees * Pain not relieved by pain medicine ordered * There is increased drainage or redness from any incision * You have any unanswered questions or concerns. Your Doctors Instructions noted above were prepared by provider Lowell Nickerson. Patient Signature Section: Patient Instructions Signature Page Soumya Clarksantino Patient (or Guardian) Signature/Date: I have read and understand the instructions given to me by my caregivers. Caregiver/RN/Doctor Signature/Date: The above-named patient and/or guardian has received patient instructions on this date. + Original Patient Signature Page (only) stays with chart. Please make copy for patient.
[2017-05-10 10:10] VITALS: BP 109/73; PULSE 87; TEMP 36.7; O2SAT 95
[2017-05-10 10:40] VITALS: BP 109/73; PULSE 104; TEMP 36.7; O2SAT 96
== END 2017-05-10 10:40 | disposition home or self-care (01) ==
LOC: C.ACU 06:02
PROVIDERS: ATTEND Internal Medicine Interventional Cardiology
DX: I87.2 Venous insufficiency (chronic) (peripheral) (principal); K44.9 Diaphragmatic hernia without obstruction or gangrene; Z86.711 Personal history of pulmonary embolism; Z98.84 Bariatric surgery status; Z79.899 Other long term (current) drug therapy

== ENCOUNTER → 2017-05-30 | Outpatient (CLI) | payer OTHER ==
[~2017-05-30] MED LIST changes: -CIPR-255 PO
== END | disposition home or self-care (01) ==
LOC: C.PAPS 09:07
PROVIDERS: ATTEND Obstetrics & Gynecology
DX: Z12.4 Encounter for screening for malignant neoplasm of cervix (principal); Z78.0 Asymptomatic menopausal state

== ENCOUNTER → 2017-07-26 | Outpatient (CLI) | payer OTHER ==
[~2017-07-26] MED LIST changes: +MELO-83 PO; -MELO15TA4 PO
== END | disposition home or self-care (01) ==
LOC: C.MAMM 13:13
PROVIDERS: ATTEND Internal Medicine Rheumatology
DX: M85.88 Other specified disorders of bone density and structure, other site (principal); M81.0 Age-related osteoporosis without current pathological fracture; M45.9 Ankylosing spondylitis of unspecified sites in spine; M46.1 Sacroiliitis, not elsewhere classified; Z79.1 Long term (current) use of non-steroidal anti-inflammatories (NSAID)

== ENCOUNTER → 2017-07-27 | Outpatient (CLI) | payer OTHER | END | disposition home or self-care (01) | LOC: C.LABBFT 09:05 | PROVIDERS: ATTEND Nurse Practitioner | DX: Z13.6 Encounter for screening for cardiovascular disorders (principal); E03.9 Hypothyroidism, unspecified ==

== ENCOUNTER → 2017-08-13 | Outpatient (CLI) | payer OTHER ==
--- NOTE | 2017-08-13 16:11 | DIAGNOSTIC IMAGING REPORT ---
R HAND MIN 3 VIEWS ROUTINE CLINICAL HISTORY: M45.9 Ankylosing [id number] right hand pain COMPARISON: None. DISCUSSION: The bones are mildly osteopenic. There is soft tissue swelling at the level of the proximal distal interphalangeal joints. There are moderate erosive osteoarthritic changes present. There is a small particular calcification at the level of the proximal interphalangeal joint of the third finger. No acute fractures are visualized. IMPRESSION: 1. No acute fractures 2. Osteopenia, soft tissue swelling, and mild erosive osteoarthritic change. Electronically signed by: Dalton Landaverde M.D. 08/13/2017 4:10 PM Dictated Date/Time: 08/13/2017 4:09 PM
--- NOTE | 2017-08-13 16:14 | DIAGNOSTIC IMAGING REPORT ---
L HAND MIN 3 VIEWS ROUTINE CLINICAL HISTORY: M45.9 Ankylosing [id number] left hand pain COMPARISON: None. DISCUSSION: The bones are mildly osteopenic. There is mild soft tissue swelling at the level of the proximal distal interphalangeal joints. There are mild osteoarthritic type changes. No fractures are visualized. IMPRESSION: 1. Osteopenia and mild soft tissue swelling 2. Osteoarthritic type changes at the proximal distal interphalangeal joints 3. No acute fractures Electronically signed by: Dalton Landaverde M.D. 08/13/2017 4:12 PM Dictated Date/Time: 08/13/2017 4:12 PM
== END | disposition home or self-care (01) ==
LOC: C.RAD1850 15:42
PROVIDERS: ATTEND Internal Medicine Rheumatology
DX: M19.041 Primary osteoarthritis, right hand (principal); M19.042 Primary osteoarthritis, left hand; M45.9 Ankylosing spondylitis of unspecified sites in spine; M70.60 Trochanteric bursitis, unspecified hip; M81.0 Age-related osteoporosis without current pathological fracture; M85.80 Other specified disorders of bone density and structure, unspecified site

== ENCOUNTER → 2017-08-22 | Outpatient (CLI) | payer OTHER ==
[2017-08-28 11:34] LABS: HERPES SIMPLEX VIRUS CULT NOT ISOLATED (NOT ISOLATED)
== END | disposition home or self-care (01) ==
LOC: C.LABBFT 15:01
PROVIDERS: ATTEND Nurse Practitioner
DX: K13.79 Other lesions of oral mucosa (principal)

== ENCOUNTER → 2017-08-31 | Outpatient (CLI) | payer OTHER ==
[2017-09-09 17:32] LABS: VITAMIN B6** TC 926 29.9 ng/mL (2.1-21.7)
== END | disposition home or self-care (01) ==
LOC: C.LAB 14:14
PROVIDERS: ATTEND Physician Assistant
DX: R20.8 Other disturbances of skin sensation (principal)

== ENCOUNTER → 2017-12-25 | Outpatient (CLI) | payer OTHER ==
--- NOTE | 2017-12-25 16:16 | DIAGNOSTIC IMAGING REPORT ---
HEAD CT NONCONTRAST CT DOSE: 638.56 mGycm HISTORY: SLURRED SPEECH,DYSPHAGIA TECHNIQUE: Multiaxial CT images of the head were performed without the use of intravenous contrast. Automated exposure control was utilized for this study. A dose lowering technique was utilized adhering to the principles of ALARA. Comparison: None. Findings: The paranasal sinuses and mastoid air cells are clear. The calvarium and skull base are intact. The ventricles and sulci are within normal limits. There is no mass, hematoma, midline shift. There are few scattered hypodensities within the periventricular and subcortical white matter. These are nonspecific but favor microvascular ischemic change. Bilateral subinsular white matter hypodensities may also be due to microvascular ischemic change or small old infarcts. A 5 mm hypodense focus within the right thalamus. This is consistent with a subacute to chronic lacunar infarct. Impression: 1. Subacute to chronic right thalamic lacunar infarct. 2. Presumed mild microvascular ischemic change. Electronically signed by: Carlos Black M.D. 12/25/2017 4:15 PM Dictated Date/Time: 12/25/2017 4:10 PM
== END | disposition home or self-care (01) ==
LOC: C.CTS 15:53
PROVIDERS: ATTEND Nurse Practitioner
DX: F80.89 Other developmental disorders of speech and language (principal); R13.10 Dysphagia, unspecified

== ENCOUNTER → 2018-01-02 | Outpatient (CLI) | payer OTHER ==
[2018-01-02 17:34] LABS: BASO % 0.5 %; BASO ABS # 0.03 K/uL (0-0.2); EOS % 1.5 %; HEMATOCRIT 38.9 % (37-47); IG# 0.01 K/uL (0.00-0.02); LYMPH % 39.5 %; LYMPH ABS # 2.61 K/uL (1.2-3.4); MEAN CELL VOLUME 94.4 fL (80-100); MEAN CORPUSCULAR HEMOGLOBIN 31.6 pg (25-34); MEAN CORPUSCULAR HGB CONC 33.4 g/dl (32-36); MEAN PLATELET VOLUME 10.9 fL (7.4-10.4); MONO % 6.8 %; MONO ABS # 0.45 K/uL (0.11-0.59); NEUT % 51.5 %; NEUT ABS # 3.41 K/uL (1.4-6.5); PLATELET COUNT 258 K/uL (130-400); RED CELL DISTRIBUTION WIDTH CV 13.1 % (11.5-14.5); RED CELL DISTRIBUTION WIDTH SD 45.7 fL (36.4-46.3); WHITE BLOOD COUNT 6.61 K/uL (4.8-10.8)
[2018-01-02 17:47] LABS: ALBUMIN 3.5 gm/dl (3.4-5.0); ALKALINE PHOSPHATASE 60 U/L (45-117); ALT/SGPT 29 U/L (12-78); AST/SGOT 28 U/L (15-37); BLOOD UREA NITROGEN 21 mg/dl (7-18); CALCIUM 8.7 mg/dl (8.5-10.1); CARBON DIOXIDE 27 mmol/L (21-32); CREATININE 1.04 mg/dl (0.60-1.20); GLUCOSE 118 mg/dl (70-99); POTASSIUM 3.9 mmol/L (3.5-5.1); SODIUM 139 mmol/L (136-145); TOTAL PROTEIN 7.1 gm/dl (6.4-8.2)
[2018-01-03 05:41] LABS: HEMOGLOBIN A1C 5.7 % (4.5-5.6)
== END | disposition home or self-care (01) ==
LOC: C.LABBFT 12:21
PROVIDERS: ATTEND Physician Assistant
DX: I63.9 Cerebral infarction, unspecified (principal)

== ENCOUNTER → 2018-01-07 | Outpatient (CLI) | payer OTHER ==
--- NOTE | 2018-01-07 13:46 | DIAGNOSTIC IMAGING REPORT ---
CAROTID DOPPLER NECK ART HISTORY: Stroke. Mental status change. I63.9 CVA COMPARISON: None. TECHNIQUE: Real-time, grayscale, and color Doppler sonography of the carotid arteries was performed. Imaging reviewed in the transverse and longitudinal planes. All measurements were calculated based on NASCET criteria. FINDINGS: Antegrade flow is seen in the bilateral vertebral arteries. The brachial pressures are hemodynamically similar. The peak systolic velocity within the right ICA is 46. The right systolic ratio is 0.7. The peak systolic velocity within the left ICA is 38. The left systolic ratio is 0.7. IMPRESSION: No hemodynamically significant stenosis seen within the carotid arteries. The above report was generated using voice recognition software. It may contain grammatical, syntax or spelling errors. Electronically signed by: Enmanuel Vargas M.D. 01/07/2018 1:45 PM Dictated Date/Time: 01/07/2018 1:44 PM
--- NOTE | 2018-01-07 14:21 | DIAGNOSTIC IMAGING REPORT ---
BRAIN COMBO CLINICAL HISTORY: I63.9 CVA mental status change COMPARISON STUDY: No previous studies for comparison. TECHNIQUE: Utilizing a 1.5 Alicia magnet and dedicated coil, multiplanar, multiecho imaging of the brain was performed pre and postcontrast administration. IV administration of 8 mL of Gadavist contrast was uneventful. FINDINGS: Diffusion-weighted images show no evidence for an acute ischemic process. Coronal FLAIR images demonstrate multiple foci of increased signal throughout both cerebral hemispheres. These showed no evidence for abnormal postcontrast enhancement. Differential considerations include chronic small vessel change versus a late onset demyelinating disorder. IMPRESSION: 1. Multiple foci of increased signal within both cerebral hemispheres. 2. Differential considerations include chronic small vessel change versus late onset demyelinating disorder versus Lyme disease. 3. No evidence for abnormal postcontrast enhancement. The above report was generated using voice recognition software. It may contain grammatical, syntax or spelling errors. Electronically signed by: Enmanuel Vargas M.D. 01/07/2018 2:20 PM Dictated Date/Time: 01/07/2018 2:11 PM
--- NOTE | 2018-01-07 14:29 | DIAGNOSTIC IMAGING REPORT ---
MRA HEAD WITHOUT CONTRAST CLINICAL HISTORY: 67 years-old Female presenting with stroke 2 weeks ago, difficulty speaking and difficulty swallowing. TECHNIQUE: MR angiography of the head was performed without the use of intravenous contrast using 3-D [id number] technique. 3-D volumetric and/or maximum intensity projection (MIP) images were subsequently reconstructed for review. IV contrast: None. COMPARISON: None. FINDINGS: Anterior circulation: Intracranial portions of the internal carotid arteries patent to the level of the termini. Anterior and middle cerebral arteries patent. Anterior communicating artery patent. Posterior circulation: Codominant vertebral arteries. Intradural portions of the vertebral arteries patent. Posterior inferior cerebellar arteries patent. Basilar artery patent. Anterior inferior cerebellar arteries poorly visualized. Superior cerebellar and posterior cerebral arteries patent. Posterior communicating arteries patent. IMPRESSION: 1. No significant stenosis, aneurysm, or focal vessel occlusion. Electronically signed by: Rosalio Rose M.D. 01/07/2018 2:28 PM Dictated Date/Time: 01/07/2018 2:24 PM
== END | disposition home or self-care (01) ==
LOC: C.ULTR 12:43
PROVIDERS: ATTEND Physician Assistant
DX: I63.9 Cerebral infarction, unspecified (principal)

== ENCOUNTER 2019-02-01 11:29 | Inpatient (IN) ==
[2019-02-01 12:11] LABS: Hematocrit (blood only) 39.5 % (37-47); Hemoglobin 13.5 g/dL (12.0-16.0); Immature Granulocytes # (auto) 0.01 K/uL (0.00-0.02); Immature Granulocytes % (auto) 0.2 %; Lymphocytes % (auto) 20.4 %; Mean Corpuscular Hemoglobin 32.1 pg (25-34); Mean Corpuscular Hgb Conc 34.2 g/dL (32-36); Mean Corpuscular Volume 93.8 fL (80-100); Mean Platelet Volume 10.4 fL (7.4-10.4); Monocytes % (auto) 4.7 %; Neutrophils # (auto) 4.77 K/uL (1.4-6.5); Neutrophils % (auto) 74.7 %; Platelet Count 268 K/uL (130-400); RDW Coefficient of Variation 13.4 % (11.5-14.5); RDW Standard Deviation 46.3 fL (36.4-46.3); Red Blood Count 4.21 M/uL (4.2-5.4); White Blood Count 6.38 K/uL (4.8-10.8)
[2019-02-01 12:30] LABS: BUN Creatinine Ratio 27.5 (10-20); Blood Urea Nitrogen 21 mg/dl (7-18); Calcium 9.2 mg/dl (8.5-10.1); Carbon Dioxide 28 mmol/L (21-32); Chloride 104 mmol/L (98-107); Est GFR (African American) 91.8; Est GFR (Non-African American) 79.2; Glucose 127 mg/dl (70-99); Sodium 137 mmol/L (136-145)
--- NOTE | 2019-02-01 12:35 | XRay Report ---
GASTROSTOMY TUBE CHECK CLINICAL HISTORY: Gastrostomy tube. Evaluate positioning. COMPARISON STUDY: No previous studies for comparison. FINDINGS: A loom doffer radiograph reveals a gastrostomy tube. There is no pathologic bowel dilatation. 30 cc of a Optiray 300 was instilled into the gastrostomy tube. The tube is located within the stomach. No contrast extravasation was visualized. IMPRESSION: The patient's gastrostomy tube is positioned within the stomach. Electronically signed by: Dalton Landaverde M.D. 02/01/2019 12:33 PM
--- NOTE | 2019-02-01 13:24 | Emergency Department Note ---
Entered by Sarah Ziegler acting as a scribe for History of Present Illness General Chief complaint: Feeding/PEG Tube Replacement Stated complaint: FEEDING TUBE BLEEDING Time Seen by Provider: 02/01/19 11:41 Source: family () History of Present Illness Onset (ago): hour(s) (this morning) Location: abdomen Severity: similar to prior episodes Pain Consistency: + other (episode ) Maximum Pain Intensity: 0 Quality: + other (PEG tube malfunction) Associated symptoms: + other (positive PEG tube bleeding) The patient is a 68 year old female who presents to the Emergency Room with complaints of an episode of PEG tube malfunction that began this morning. The patient's states that the patient's PEG tube began bleeding this morning and there were clots found on the patient's bed this morning. The patient's husb and states that the patient's PEG tube was placed 9 days ago due to the patient's recent diagnosis of ALS. The patient's states that the patient has been having difficulties with the PEG tube leaking ever since it was placed. Per the patient's , the patient's PEG tube was leaking yesterday and the patient's home health nurse called Dr. Collins who advised the nurse to blow up the balloon more. The patient's states that the patient is on Plavix and Lipitor. Home Medications Home Medications Medication Instructions Recorded Confirmed Type aspirin 81 mg tablet,delayed 81 mg PO QAM 12/11/18 02/01/19 History release calcium citrate-vitamin D3 315 1 tab PO TID 12/11/18 02/01/19 History mg-200 unit tablet levothyroxine 25 mcg tablet 25 mcg PO QAM 12/11/18 02/01/19 History meloxicam 15 mg tablet 15 mg PO QAM 12/11/18 02/01/19 History cyclobenzaprine 5 mg tablet 5 mg PO TID PRN #30 tab 12/30/18 02/01/19 History cholecalciferol (vitamin D3) 5,000 unit PO QAM 01/07/19 02/01/19 History [Vitamin D3] multivitamin 1 tab PO QAM 01/07/19 02/01/19 History omeprazole 20 mg PO QAM 01/07/19 02/01/19 History riluzole 50 mg PO BID 01/07/19 02/01/19 History clopidogrel [Plavix] 75 mg PO QPM 01/10/19 02/01/19 History triamcinolone acetonide 0.1 % 1 appln DT TID PRN #5 gm 01/20/19 02/01/19 Rx dental paste ascorbic acid (vitamin C) [Vitamin 500 mg PO QAM 01/21/19 02/01/19 History C] atorvastatin 80 mg PO QAM 01/21/19 02/01/19 History beta carotene 7,500 unit PO QAM 01/21/19 02/01/19 History citalopram 20 mg PO QAM 01/21/19 02/01/19 History coQ10 (ubiquinol) 200 mg PO QAM 01/21/19 02/01/19 History vitamin E 400 unit PO QAM 01/21/19 02/01/19 History hydrocodone-acetaminophen [[place]] 1 - 2 tab PO .every 4-6 hours #15 01/23/19 02/01/19 Rx tab alendronate 70 mg tablet 70 mg PO .COMPLEX #5 tab 01/29/19 02/01/19 Rx Allergies Allergy/AdvReac Type Severity Reaction Status Date / Time No Known Drug Allergies Allergy Unknown . Verified 02/01/19 11:51 Past Med/Surg History Medical History History of CVA (cerebrovascular accident) x2; 10/2017, ?01/07/18- on plavix; residual speech impairment, RUE weakness and dysphagia Pulmonary embolism S/P hiatal hernia repair (2016)- no issues since Amyotrophic lateral sclerosis (ALS) recent diagnosis Ankylosing spondylitis Anxiety Diverticulitis hx Dysphagia reason for upcoming procedure GERD (gastroesophageal reflux disease) Gastrostomy tube in place (01/23/19) Laparoscopic Assisted Gastrostomy Tube Placement Dr. Collins 01/23/19 Hypothyroidism Osteoarthritis Osteoporosis Paraesophageal hernia Rectal prolapse Speech impairment r/t ALS and hx CVA Surgical History History of Jaret fundoplication H/O tubal ligation History of appendectomy History of colonoscopy History of esophagogastroduodenoscopy (EGD) History of tooth extraction Family History Father Family history of diabetes mellitus Sister Family history of diabetes mellitus Social History Preferred Language: Turkmen Communication Ability: Impaired Credit [employer] Field Examiner Required: No Beliefs That Will Affect Care: None Current Living Situation: Spouse Feels Safe at Home: Yes Smoking Status: Never smoker Second Hand Exposure: No ; Hx Alcohol Use: No Hx Substance Use: No Review of Systems See HPI for pertinent positives & negatives. and A total of 10 systems reviewed and were otherwise negative Physical Exam Vital Signs Vital Signs - 24 hr 02/01/19 11:31 Temperature 36.8 C Temperature Source Oral Sepsis Recent Fever Within 48 Hours No Sepsis Action Taken by Nursing No Action Required Pulse Rate 101 H Pulse Rhythm Regular Pulse Strength Normal Respiratory Rate 18 Respiratory Effort / Characteristics Non-Labored Spontaneous Respiratory Depth Normal Respiratory Pattern Regular Blood Pressure 119/63 Blood Pressure Mean 81 Blood Pressure Position Sitting Pulse Oximetry 96 Oxygen Delivery Method Room Air GENERAL: Appears cachectic. She is oriented to person, place, and time. She appears well-developed. She does not appear distressed. HENT: Exam performed. -Head: Normocephalic and atraumatic. - Right Ear: External ear normal. No mastoid tenderness. -Left Ear: External ear normal. No mastoid tenderness. -Mouth/Throat: The oropharynx is clear and moist. No trismus in the jaw. No dental abscesses or uvula swelling. No oropharyngeal exudate or tonsillar abscesses. EYES: Conjunctivae and EOM are normal. Pupils are equal, round, and reactive to light. Right eye exhibits no discharge. Left eye exhibits no discharge. No scleral icterus. NECK: Normal range of motion. Neck supple. No JVD present. No spinous process tenderness present. No carotid bruit present. No rigidity. No tracheal deviation and normal range of motion present. No Brudzinski's sign and no Kernig's sign noted. CV: Normal rate, regular rhythm, normal heart sounds and intact distal pulses. There is no peripheral edema. Palpable radial pulses bue. PULM/CHEST: Effort normal and breath sounds normal. No respiratory distress. No stridor. She has no wheezes. She has no rales. Chest Wall: She exhibits no tenderness. ABD: PEG tube in place surrounded by dressings that are saturated with dry blood. Abdomen soft, no rigidity, no guarding, and no tenderness. MUSC/SKEL: Normal range of motion. There is no peripheral edema, tenderness or deformity. LYMPH: No cervical adenopathy. NEURO: Motor and sensation grossly intact. SKIN: Skin is warm and dry. She is not diaphoretic. PSYCH: She has a normal mood and affect. Her behavior is normal. Judgment and thought content normal. Course 1143: Past medical records reviewed. The patient was evaluated in room B12B. A complete history and physical exam was performed. 1253: The patient's vital signs are stable. Her labs are within normal limits. The PEG tube study with contrast showed PEG tube is in place in the stomach. I discussed the case with Dr. Raul Miguel who states that he prefers for the patient to be further evaluated in the hospital and states that he will come evaluate the patient. He has had the patient be admitted to the internal medicine service with a GI consult and he will be on consult also. The patient will be further evaluated by medicine with a GI consult. I discussed the case with Dr. Her-[facility] Hospitalist who accepts the patient for further evaluation. Consultations Consultation #1: I discussed the case with Dr. Raul Miguel who states that he prefers for the patient to be further evaluated in the hospital and states that he will come evaluate the patient. The patient will be further evaluated by medicine with a GI consult. Time: 12:53 Medical Decision Making Medical Records Attestation: I reviewed the patient's medical records. Home Medications Current Medication List: was personally reviewed by me Laboratory Data Attestation: I reviewed the patient's lab results. Result diagrams: 02/01/19 11:55 02/01/19 11:55 Lab Results 02/01/19 02/01/19 Range/Units 11:55 11:55 WBC 6.38 (4.8-10.8) K/uL RBC 4.21 (4.2-5.4) M/uL Hgb 13.5 (12.0-16.0) g/dL Hct 39.5 (37-47) % MCV 93.8 (80-100) fL MCH 32.1 (25-34) pg MCHC 34.2 (32-36) g/dL RDW Std Deviation 46.3 (36.4-46.3) fL RDW Coeff of Rosa 13.4 (11.5-14.5) % Plt Count 268 (130-400) K/uL MPV 10.4 (7.4-10.4) fL Immature Gran % (Auto) 0.2 % Neut % (Auto) 74.7 % Lymph % (Auto) 20.4 % [place] % (Auto) 4.7 % Eos % (Auto) 0.0 % Baso % (Auto) 0.0 % Immature Gran # (Auto) 0.01 (0.00-0.02) K/uL Neut # (Auto) 4.77 (1.4-6.5) K/uL Lymph # (Auto) 1.30 (1.2-3.4) K/uL [place] # (Auto) 0.30 (0.11-0.59) K/uL Eos # (Auto) 0.00 (0-0.5) K/uL Baso # (Auto) 0.00 (0-0.2) K/uL Sodium 137 (136-145) mmol/L Potassium 4.0 (3.5-5.1) mmol/L Chloride 104 (98-107) mmol/L Carbon Dioxide 28 (21-32) mmol/L Anion Gap 6.0 (3-11) BUN 21 H (7-18) mg/dl Creatinine 0.78 (0.6-1.2) mg/dl Est Cr Clr Drug Dosing Not Reportable Est GFR ( Amer) 91.8 Est GFR (Non-Af Amer) 79.2 BUN/Creatinine Ratio 27.5 H (10-20) Glucose 127 H (70-99) mg/dl Calcium 9.2 (8.5-10.1) mg/dl Imaging Data Radiologist's Impression: Radiology results as stated below per my review and the radiologist's interpretation: GASTROSTOMY TUBE CHECK CLINICAL HISTORY: Gastrostomy tube. Evaluate positioning. COMPARISON STUDY: No previous studies for comparison. FINDINGS: A service or work dispatcher radiograph reveals a gastrostomy tube. There is no pathologic bowel dilatation. 30 cc of a Optiray 300 was instilled into the gastrostomy tube. The tube is located within the stomach. No contrast extravasation was visualized. IMPRESSION: The patient's gastrostomy tube is positioned within the stomach. Electronically signed by: Dalton Landaverde M.D. 02/01/2019 12:33 PM Blood Pressure Blood Pressure Findings: Normal blood pressure MDM Narrative The patient's vital signs are stable. Her labs are within normal limits. The PEG tube study with contrast showed PEG tube is in place in the stomach. I discussed the case with Dr. Coleman-General Surgery who states that he prefers for the patient to be further evaluated in the hospital and states that he will come evaluate the patient. He has had the patient be admitted to the internal medicine service with a GI consult and he will be on consult also. The patient will be further evaluated by medicine with a GI consult. I discussed the case with Dr. Her-[facility] Hospitalist who accepts the patient for further evaluation. Impression & Plan Complication of feeding tube Discharge Plan Visit Data Chief Complaint: Feeding/PEG Tube Replacement Stated Complaint: FEEDING TUBE BLEEDING ED Provider: Gilmer Jhaveri Discharge Problem: Complication of feeding tube Patient Disposition: Being Evaluated by Hospitalist Forms Stand Alone Forms: My [facility] Prescriptions Prescriptions: No Action alendronate 70 mg tablet 70 mg PO .COMPLEX Qty: 5 RF: 5 aspirin [Adult Low Dose Aspirin] 81 mg tablet,delayed release (DR/EC) 81 mg PO QAM RF: 0 calcium citrate-vitamin D3 [Calcium Citrate + D] 315-200 mg-unit tablet 1 tab PO TID RF: 0 levothyroxine 25 mcg tablet 25 mcg PO QAM RF: 0 meloxicam 15 mg tablet 15 mg PO QAM RF: 0 cyclobenzaprine 5 mg tablet 5 mg PO TID PRN (Reason: Muscle Spasm) Qty: 30 RF: 0 triamcinolone acetonide 0.1 % paste 1 appln DT TID PRN (Reason: mouth irritation) Qty: 5 RF: 3 atorvastatin 80 mg tablet 80 mg PO QAM RF: 0 citalopram 20 mg tablet 20 mg PO QAM RF: 0 ascorbic acid (vitamin C) [Vitamin C] 500 mg Tablet 500 mg PO QAM RF: 0 beta carotene 10,000 unit Capsule 7,500 unit PO QAM RF: 0 vitamin E 400 unit Capsule 400 unit PO QAM RF: 0 coQ10 (ubiquinol) 200 mg Capsule 200 mg PO QAM RF: 0 hydrocodone-acetaminophen [[place]] 5-325 mg tablet 1 - 2 tab PO .every 4-6 hours Qty: 15 RF: 0 multivitamin Tablet 1 tab PO QAM RF: 0 cholecalciferol (vitamin D3) [Vitamin D3] 5,000 unit Tablet 5,000 unit PO QAM RF: 0 omeprazole 20 mg capsule,delayed release(DR/EC) 20 mg PO QAM RF: 0 riluzole 50 mg Tablet 50 mg PO BID RF: 0 clopidogrel [Plavix] 75 mg Tablet 75 mg PO QPM RF: 0 Referrals Referrals: Jeff Dawn III, MD [Primary Care Provider] - The scribe's documentation has been prepared under my direction and personally r eviewed by me in its entirety. I confirm that the note above accurately reflects all work, treatment, procedures, and medical decision making performed by me.
--- NOTE | 2019-02-01 13:48 | Surgery Consultation ---
Date of Consultation February 01, 2019 Assessment & Plan (1) Feeding tube dysfunction: I think for all involved with the level of anxiety and trying to take care of this tube It would be best to admit the patient to the hospital for acute care of her gastrostomy tube We will monitor her eating and tube feeds try to control the drainage with dressings around the 2 With strict nursing care. Apparently the balloon takes 8 to 10 cc of saline-I have snugged the flange to the abdominal wall We will assess for drainage I discussed this with 1 of the GI doctors and he said Reglan can sometimes help History of Present Illness History of Present Illness Patient is a 68-year-old female with a history of ALS and Jaret fundoplication Recently on 01/23/2019 had a gastrostomy tube placed by Dr. Collins which is a 22 [place] Tube with apparently 8 to 10 cc balloon. Had some trouble at home with leakage And also have some worries about drainage from the wound A contrast study was done today which showed the gastrostomy tube to be within the stomach Allergies Allergy/AdvReac Type Severity Reaction Status Date / Time No Known Drug Allergies Allergy Unknown . Verified 02/01/19 11:51 Home Medications Home Medications Medication Instructions Recorded Confirmed Type aspirin 81 mg tablet,delayed 81 mg PO QAM 12/11/18 02/01/19 History release calcium citrate-vitamin D3 315 1 tab PO TID 12/11/18 02/01/19 History mg-200 unit tablet levothyroxine 25 mcg tablet 25 mcg PO QAM 12/11/18 02/01/19 History meloxicam 15 mg tablet 15 mg PO QAM 12/11/18 02/01/19 History cyclobenzaprine 5 mg tablet 5 mg PO TID PRN #30 tab 12/30/18 02/01/19 History cholecalciferol (vitamin D3) 5,000 unit PO QAM 01/07/19 02/01/19 History [Vitamin D3] multivitamin 1 tab PO QAM 01/07/19 02/01/19 History omeprazole 20 mg PO QAM 01/07/19 02/01/19 History riluzole 50 mg PO BID 01/07/19 02/01/19 History clopidogrel [Plavix] 75 mg PO QPM 01/10/19 02/01/19 History triamcinolone acetonide 0.1 % 1 appln DT TID PRN #5 gm 01/20/19 02/01/19 Rx dental paste ascorbic acid (vitamin C) [Vitamin 500 mg PO QAM 01/21/19 02/01/19 History C] atorvastatin 80 mg PO QAM 01/21/19 02/01/19 History beta carotene 7,500 unit PO QAM 01/21/19 02/01/19 History citalopram 20 mg PO QAM 01/21/19 02/01/19 History coQ10 (ubiquinol) 200 mg PO QAM 01/21/19 02/01/19 History vitamin E 400 unit PO QAM 01/21/19 02/01/19 History hydrocodone-acetaminophen [[place]] 1 - 2 tab PO .every 4-6 hours #15 01/23/19 02/01/19 Rx tab alendronate 70 mg tablet 70 mg PO .COMPLEX #5 tab 01/29/19 02/01/19 Rx Patient History Medical History History of CVA (cerebrovascular accident) x2; 10/2017, ?01/07/18- on plavix; residual speech impairment, RUE weakness and dysphagia Pulmonary embolism S/P hiatal hernia repair (2016)- no issues since Amyotrophic lateral sclerosis (ALS) recent diagnosis Ankylosing spondylitis Anxiety Diverticulitis hx Dysphagia reason for upcoming procedure GERD (gastroesophageal reflux disease) Gastrostomy tube in place (01/23/19) Laparoscopic Assisted Gastrostomy Tube Placement Dr. Collins 01/23/19 Hypothyroidism Osteoarthritis Osteoporosis Paraesophageal hernia Rectal prolapse Speech impairment r/t ALS and hx CVA Surgical History History of Jaret fundoplication H/O tubal ligation History of appendectomy History of colonoscopy History of esophagogastroduodenoscopy (EGD) History of tooth extraction Family History Father Family history of diabetes mellitus Sister Family history of diabetes mellitus Social History Preferred Language: Uzbek Communication Ability: Impaired Senior Director Of Strategy Required: No Beliefs That Will Affect Care: None Current Living Situation: Spouse Feels Safe at Home: Yes Smoking Status: Never smoker Second Hand Exposure: No ; Hx Alcohol Use: No Hx Substance Use: No Review of Systems Review of Systems: All systems reviewed & are unremarkable except as noted in HPI & below Physical Exam Physical Exam: Patient is in her ER bed in no distress very responsive At the bedside are her daughter, and sister Everyone is a little bit anxious. Gastrostomy tube is in place a dressing under the flange was some milky drainage Which may be tube feed and a little bit of blood mixed There is nothing pouring out of the site, he does have a small incision to the left Which has some serosanguineous drainage Very minimal erythema, no real cellulitis Results & Data Vital Signs (Past 12 Hours) Vital Signs Temp Pulse Resp BP Pulse Ox 02/01/19 11:31 36.8 C 101 H 18 119/63 96 PG Care Time/CCT Total # of Minutes Spent Total Time Spent with Patient: Total time spent is greater than 50% in coordination of care (as documented) at patient's floor/unit and/or counseling patient: (1) Feeding tube dysfunction Encounter type: initial encounter Qualified Code(s): T85.598A - Other mechanical complication of other gastrointestinal prosthetic devices, implants and grafts, initial encounter
--- NOTE | 2019-02-01 14:02 | History & Physical Report ---
Date of Service February 01, 2019 Assessment & Plan (1) Complication of feeding tube: Admit to inpatient on telemetry for observation Vital signs every 4 hours General surgery consulted Dr. Jared Ghosh PEG tube feeding today Patient can continue p.o. feeding Hold DVT prophylaxis for now since surgery may be planned procedure Full code Present on Admission?: Yes (2) Ankylosing spondylitis: Continue home medicine meloxicam 15 mg every morning Continue cyclobenzaprine 5 mg p.o. 3 times daily as needed for stiffness Present on Admission?: Yes (3) Cerebrovascular disease: Continue clopidogrel 75 mg p.o. every afternoon Continue aspirin 81 mg tablets p.o. every morning Continue better Claritin 7500 units p.o. every morning Continue calcium citrate vitamin D3 p.o. 3 times daily Continue cholecalciferol 5000 units p.o. every morning Present on Admission?: Yes (4) Hypothyroidism: Continue levothyroxine 25 MCG's p.o. every morning Present on Admission?: Yes (5) Impaired fasting glucose: Check A1c Diabetic control diet Present on Admission?: Yes (6) History of CVA (cerebrovascular accident): Continue clopidogrel and atorvastatin aspirin Present on Admission?: Yes (7) Depression: Continue citalopram 20 mg p.o. every morning Present on Admission?: Yes History of Present Illness Chief Complaint: Complication of feeding tube Primary Care Provider: Jeff Dawn MD Patient is a 68 years old female with a past medical history of ankylosing spondylitis, dysphagia due to prior CVA, osteoarthritis, psoriasis, ALS, pulmonary embolism, who presents to the emergency room with a complaint of episode of PEG tube complications that started this morning. Patient reports small amount of bleeding that she noted from the tube. PEG tube was placed 9 days ago due to the patient's recent diagnosis with ALS. Patient states that patient has been having difficulties with the PEG tube leak especially the first day because she was fed 120 cc of water/120 cc of feeding and another 120 cc of water. Patient said that point she had severe leakage and next day she started to see some minor bleeding from the orifice. Feedings are then decreased to 60 mils and that helped better to prevent overflow but patient said she continues to have some bleeding from the surrounding of the tube approximately mildly soaked less than one 2 x 2 gauze. Patient also noticed on small amount of pus is coming out which could be also related to the first day over flow which patient sees as a past. General surgery was called and Dr. Arredondo examined the patient and he recommended to patient to continue normal p.o. and not to use the tube at this time and he will reexamine her tomorrow. Labs are reviewed: WBC 6.38, hemoglobin 13.5, hematocrit 39.5 platelets 268, PT 10.2 INR 1 APTT 23.8, sodium 137, potassium 4, chloride 104 BUN 21, creatinine 0.78, GFR 79.2 calcium 9.2. KUB done patient gastrostomy tube is positioned within the stomach. Decision was made to admit patient for observation on telemetry and to manage her PEG tube feeding complications. Allergies Allergy/AdvReac Type Severity Reaction Status Date / Time No Known Drug Allergies Allergy Unknown . Verified 02/01/19 11:51 Home Medications Home Medications Medication Instructions Recorded Confirmed Type aspirin 81 mg tablet,delayed 81 mg PO QAM 12/11/18 02/01/19 History release calcium citrate-vitamin D3 315 1 tab PO TID 12/11/18 02/01/19 History mg-200 unit tablet levothyroxine 25 mcg tablet 25 mcg PO QAM 12/11/18 02/01/19 History meloxicam 15 mg tablet 15 mg PO QAM 12/11/18 02/01/19 History cyclobenzaprine 5 mg tablet 5 mg PO TID PRN #30 tab 12/30/18 02/01/19 History cholecalciferol (vitamin D3) 5,000 unit PO QAM 01/07/19 02/01/19 History [Vitamin D3] multivitamin 1 tab PO QAM 01/07/19 02/01/19 History omeprazole 20 mg PO QAM 01/07/19 02/01/19 History riluzole 50 mg PO BID 01/07/19 02/01/19 History clopidogrel [Plavix] 75 mg PO QPM 01/10/19 02/01/19 History triamcinolone acetonide 0.1 % 1 appln DT TID PRN #5 gm 01/20/19 02/01/19 Rx dental paste ascorbic acid (vitamin C) [Vitamin 500 mg PO QAM 01/21/19 02/01/19 History C] atorvastatin 80 mg PO QAM 01/21/19 02/01/19 History beta carotene 7,500 unit PO QAM 01/21/19 02/01/19 History citalopram 20 mg PO QAM 01/21/19 02/01/19 History coQ10 (ubiquinol) 200 mg PO QAM 01/21/19 02/01/19 History vitamin E 400 unit PO QAM 01/21/19 02/01/19 History hydrocodone-acetaminophen [[place]] 1 - 2 tab PO .every 4-6 hours #15 01/23/19 02/01/19 Rx tab alendronate 70 mg tablet 70 mg PO .COMPLEX #5 tab 01/29/19 02/01/19 Rx Past Med/Surg History Medical History History of CVA (cerebrovascular accident) x2; 10/2017, ?01/07/18- on plavix; residual speech impairment, RUE weakness and dysphagia Pulmonary embolism S/P hiatal hernia repair (2016)- no issues since Amyotrophic lateral sclerosis (ALS) recent diagnosis Ankylosing spondylitis Anxiety Diverticulitis hx Dysphagia reason for upcoming procedure GERD (gastroesophageal reflux disease) Gastrostomy tube in place (01/23/19) Laparoscopic Assisted Gastrostomy Tube Placement Dr. Collins 01/23/19 Hypothyroidism Osteoarthritis Osteoporosis Paraesophageal hernia Rectal prolapse Speech impairment r/t ALS and hx CVA Surgical History History of Jaret fundoplication H/O tubal ligation History of appendectomy History of colonoscopy History of esophagogastroduodenoscopy (EGD) History of tooth extraction Family History Father Family history of diabetes mellitus Sister Family history of diabetes mellitus Social History Preferred Language: Kazakh Communication Ability: Impaired Marine Safety Officer Required: No Beliefs That Will Affect Care: None Current Living Situation: Spouse Feels Safe at Home: Yes Smoking Status: Never smoker Second Hand Exposure: No ; Hx Alcohol Use: No Hx Substance Use: No Review of Systems Review of Systems: All systems reviewed & are unremarkable except as noted in HPI & below Physical Exam Constitutional: WD/WN, vitals as above well developed, + cachectic and + frail appearing Eyes: PERRL, conjunctivae normal, anicteric sclerae ENMT: external ear and nose normal, oropharynx normal Neck: trachea midline, no thyromegaly Respiratory: normal respiratory effort, lungs clear to auscultation Cardiovascular: RRR, no murmur, no edema Gastrointestinal (Abdomen): normal bowel sounds, soft, nontender, no hepatosplenomegaly PEG tube in place. There is a very minor amount of blood around the second orifice and there is a very small amount of discharge around the PEG tube orifice. It is not clear if just the past or remnant from the feeding tube leakage. Musculoskeletal: no cyanosis or clubbing, extremities motor strength 5/5 Skin: no rashes, warm and dry Neurologic: patellar DTR's 2+ bilat, sensation intact Psychiatric: A+Ox3, euthymic affect Lymphatic: no cervical or axillary lymphadenopathy Results & Data Vital Signs (Past 12 Hours) Vital Signs Temp Pulse Pulse Resp BP BP Pulse Ox 02/01/19 13:30 69 16 131/64 96 02/01/19 11:31 36.8 C 101 H 18 119/63 96 Code Status & VTE Plan Code Status Full code VTE Prophylaxis Plan VTE Prophylaxis will be ordered: No PG Care Time/CCT Total # of Minutes Spent Total Time Spent with Patient: Total time spent is greater than 50% in coordination of care (as documented) at patient's floor/unit and/or counseling patient:
[2019-02-01] MEDS ORDERED: OXYCODONE/ACETAMINOPHEN 5mg/325mg TAB PO PRN (16:13)
[2019-02-01] MEDS ORDERED: CYCLOBENZAPRINE HCL 5 MG TAB PO PRN (16:13)
[2019-02-01] MEDS ORDERED: ACETAMINOPHEN 325 MG TAB PO PRN (16:13)
[2019-02-01] MEDS ORDERED: SODIUM CHLORIDE 0.9% 1000ML 1,000 ML IV SCH (16:13)
[2019-02-01] MEDS: CIPROFLOXACIN 400 MG/200 ML BAG IV SCH (17:47)
[2019-02-01] MEDS: metroNIDAZOLE 500 MG/100 ML BAG IV SCH (17:47)
[2019-02-01] MEDS: CLOPIDOGREL BISULFATE 75 MG TAB PO SCH (20:46)
[2019-02-01] MEDS: RILUZOLE 50 MG PO SCH (20:46)
[2019-02-01] MEDS: ATORVASTATIN 40 MG TAB PO SCH (20:46)
[2019-02-01] MEDS: CALCIUM 600MG + VIT D 400 IU TAB PO SCH (20:46)
[2019-02-01] MEDS: ZOLPIDEM TARTRATE 5 MG TAB PO PRN (22:17)
[2019-02-02] MEDS: metroNIDAZOLE 500 MG/100 ML BAG IV SCH ×3 (00:49→16:24)
[2019-02-02] MEDS: LEVOTHYROXINE SODIUM 25 MCG TABLET PO SCH (05:57)
[2019-02-02] MEDS: CIPROFLOXACIN 400 MG/200 ML BAG IV SCH ×2 (05:57→16:24)
[2019-02-02] MEDS: METOCLOPRAMIDE HCL INJ 5 MG/ML 2 ML VIAL IV SCH ×3 (06:25→18:17)
[2019-02-02] MEDS ORDERED: ALENDRONATE SODIUM 70 MG TAB PO SCH (06:30)
[2019-02-02 07:01] LABS: Basophils # (auto) 0.01 K/uL (0-0.2); Basophils % (auto) 0.1 %; Eosinophils # (auto) 0.08 K/uL (0-0.5); Eosinophils % (auto) 1.1 %; Hemoglobin 11.4 g/dL (12.0-16.0); Immature Granulocytes # (auto) 0.01 K/uL (0.00-0.02); Immature Granulocytes % (auto) 0.1 %; Lymphocytes # (auto) 2.16 K/uL (1.2-3.4); Lymphocytes % (auto) 28.6 %; Mean Corpuscular Hemoglobin 31.8 pg (25-34); Mean Corpuscular Hgb Conc 33.5 g/dL (32-36); Mean Corpuscular Volume 94.7 fL (80-100); Monocytes % (auto) 7.9 %; Neutrophils % (auto) 62.2 %; Platelet Count 238 K/uL (130-400); RDW Coefficient of Variation 13.5 % (11.5-14.5); RDW Standard Deviation 46.5 fL (36.4-46.3); Red Blood Count 3.59 M/uL (4.2-5.4); White Blood Count 7.56 K/uL (4.8-10.8)
[2019-02-02 07:10] LABS: Prothrombin Time 10.7 Seconds (9.0-12.0)
[2019-02-02 07:46] LABS: Albumin Level 2.7 gm/dl (3.4-5.0); BUN Creatinine Ratio 20.5 (10-20); Calcium 8.5 mg/dl (8.5-10.1); Creatinine Clr Calc Pharmacy 47.1 ml/min; Est GFR (African American) 90.4; Potassium 3.5 mmol/L (3.5-5.1)
[2019-02-02 07:49] LABS: Albumin Globulin Ratio 0.8 (0.9-2); Bilirubin,Total 0.9 mg/dl (0.2-1); Globulin 3.2 gm/dl (2.5-4.0); Total Protein 5.9 gm/dl (6.4-8.2)
[2019-02-02] MEDS: CALCIUM 600MG + VIT D 400 IU TAB PO SCH ×3 (08:35→20:34)
[2019-02-02] MEDS: RILUZOLE 50 MG PO SCH ×2 (08:35→20:34)
[2019-02-02] MEDS: CITALOPRAM 20 MG TAB PO SCH (08:35)
[2019-02-02] MEDS: PANTOprazole 40 MG TAB PO SCH (08:36)
[2019-02-02] MEDS: MULTIVITAMIN TAB PO SCH (08:36)
[2019-02-02] MEDS: ASPIRIN 81 MG ECTAB PO SCH (08:36)
[2019-02-02] MEDS: CHOLECALCIFEROL 1,000 UNITS TAB PO SCH (08:36)
[2019-02-02] MEDS: TOCOPHERYL, DL-ALPHA 400 UNITS CAP PO SCH (08:36)
[2019-02-02] MEDS: ASCORBIC ACID 500 MG TAB PO SCH (08:36)
[2019-02-02] MEDS: MELOXICAM 7.5 MG TAB PO SCH (08:37)
[2019-02-02] MEDS ORDERED: BETA CAROTENE PO SCH (09:00)
[2019-02-02] MEDS ORDERED: NON-FORMULARY MEDICATION (Coq10 (Ubiquinol) 200 MG) PO SCH (09:00)
--- NOTE | 2019-02-02 09:19 | Surgery Progress Note ---
Date of Service February 02, 2019 Assessment & Plan (1) Feeding tube dysfunction: I think site improved- less erythema- some drainage pt much more calm and satisfied add reglan, use stoma powder/ paste as needed may consider low volume TFs but monitor leakage may take 2-3 weeks to seal around tube Results & Data Vital Signs (Past 12 Hours) Vital Signs Temp Pulse Pulse Resp BP Pulse Ox 02/02/19 07:03 36.5 C 81 16 115/66 94 02/02/19 03:03 36.6 C 70 16 96/60 L 93 02/02/19 00:00 86 02/01/19 23:10 36.7 C 81 16 107/69 96 PG Care Time/CCT Total # of Minutes Spent Total Time Spent with Patient: Total time spent is greater than 50% in coordination of care (as documented) at patient's floor/unit and/or counseling patient: (1) Feeding tube dysfunction Encounter type: initial encounter Qualified Code(s): T85.598A - Other mechanical complication of other gastrointestinal prosthetic devices, implants and grafts, initial encounter
[2019-02-02] MEDS ORDERED: IMPACT LIQD 1.0 CAL 1,000 ML BAG PEG SCH (10:15)
--- NOTE | 2019-02-02 15:05 | Hospitalist Progress Note ---
Date of Service February 02, 2019 Assessment & Plan (1) Complication of feeding tube: General surgery consulted Dr. Coleman appreciated, recommended , reglan, stoma powder/ paste as needed, low volume TF will consult dietition to consider a different low volume formula consult social service liaison to give them a feeding pump D/W Dr. Coleman and will order CT scan ABD/Pelvis w O/I contrast to R/O intestinal stricture or obstruction D/W radiologist Dr. morales, options are limited to other imaging modules one suppository bisacodyl x 1 Full code (2) Ankylosing spondylitis: D/C meloxicam due to GI bleed will start ultram Continue cyclobenzaprine 5 mg p.o. 3 times daily as needed for stiffness (3) Cerebrovascular disease: Continue clopidogrel 75 mg p.o. every afternoon Continue aspirin 81 mg tablets p.o. every morning Continue better Claritin 7500 units p.o. every morning Continue calcium citrate vitamin D3 p.o. 3 times daily Continue cholecalciferol 5000 units p.o. every morning (4) Hypothyroidism: Continue levothyroxine 25 MCG's p.o. every morning TSH was 1.62 in 11/2018 (5) Impaired fasting glucose: A1c was 5.8 on 04/2018 Diabetic control diet (6) History of CVA (cerebrovascular accident): Continue clopidogrel and atorvastatin aspirin (7) Depression: Continue citalopram 20 mg p.o. every morning Subjective patient her self has no com plaint except that she has painful gas had 2 small bowel movement today , small amount as per patient family are concerned about fecal material leaking around the gastrostomy tube, with foul odor Review of Systems Review of Systems: Constitutional: No fever / no chills / no sweats / no weakness / no fatigue positive weight loss Eyes: no blurring of vision / no eye pain / no discharge / no redness ENT: no hearing loss / no epistaxis /no swallowing problems Respiratory: no cough / no wheezing / no SOB / no hemoptysis Cardiovascular: no Chest pain / no lower extremity edema / no palpitation Abdomen: no pain / no nausea / no vomiting / small bowel movements, fecal material leaking around the GT opening Musculoskeletal: no joint pain / no muscle pain / no joint swelling Genitourinary: no dysuria / no incontinence / no urinary retention Neurologic: no focal weakness / no numbness/tingling / no ataxia Psychiatric: no depression symptoms / no anxiety / no insomnia Endocrine: no excessive thirst / no excessive urination Hematologic: no abnormal bleeding / no bruising / no LN swelling Skin: No rash / no pallor Physical Exam Physical Exam: General patient appears to be frail elderly female , thin but not cachectic comfortable, not in acute distress HEENT: Atraumatic , normocephalic /no jaundice /no pallor /anicteric /no dry mucous membrane /normal external ear inspection Neck: Supple /no swelling /central trach Heart: S1/S2 normal/regular rate and rhythm/no gallop /no rub /no murmur Lungs: Clear to auscultation bilaterally/normal chest with expansion/no rhonchi/no rales/no wheezing/no use of accessory muscles of respiration Abdomen: Soft/nontender/no guarding/no rebound/ feeding tube has brown thick material leaking around it with bad odor Musculoskeletal: No swelling/no edema/no tenderness/normal range of motion Neuro exam: Awake alert oriented 3/cranial nerves II through XII appear to be intact/sensation intact/moves all extremities/no abnormal movements, has dysart hria Psychiatric evaluation: No depressed mood/normal affect Skin: No rash on exposed skin area/no erythema Extremity: Normal pulse/no pitting edema/no clubbing or cyanosis Results & Data Vital Signs (Past 12 Hours) Vital Signs Temp Pulse Resp BP BP Pulse Ox 02/02/19 11:29 36.4 C L 69 16 105/67 94 02/02/19 07:03 36.5 C 81 16 115/66 94 02/02/19 03:03 36.6 C 70 16 96/60 L 93 PG Care Time/CCT Total # of Minutes Spent Total Time Spent with Patient: Total time spent is greater than 50% in coordination of care (as documented) at patient's floor/unit and/or counseling patient:
--- NOTE | 2019-02-02 16:03 | Surgery Progress Note ---
Date of Service February 02, 2019 Assessment & Plan (1) Feeding tube dysfunction: seems to be more leakage with attempted tube feeds- some bilious family very concerned. site appears to be stable with TFs off will attempt CT eval tomorrow with water soluble contrast injection and IV contrast to assess location, extrav, extraluminal fluid. stomach may be contracted with poor emptying Results & Data Vital Signs (Past 12 Hours) Vital Signs Temp Pulse Resp BP BP Pulse Ox 02/02/19 15:09 36.6 C 71 18 109/67 94 02/02/19 11:29 36.4 C L 69 16 105/67 94 02/02/19 07:03 36.5 C 81 16 115/66 94 PG Care Time/CCT Total # of Minutes Spent Total Time Spent with Patient: Total time spent is greater than 50% in coordination of care (as documented) at patient's floor/unit and/or counseling patient: (1) Feeding tube dysfunction Encounter type: initial encounter Qualified Code(s): T85.598A - Other mechanical complication of other gastrointestinal prosthetic devices, implants and grafts, initial encounter
[2019-02-02] MEDS: CLOPIDOGREL BISULFATE 75 MG TAB PO SCH (20:36)
[2019-02-02] MEDS: TRIAMCINOLONE ACET 0.1% ORABASE 5 GM TUBE MT PRN (20:52)
[2019-02-03] MEDS: ZOLPIDEM TARTRATE 5 MG TAB PO PRN ×2 (01:45→21:39)
[2019-02-03] MEDS: METOCLOPRAMIDE HCL INJ 5 MG/ML 2 ML VIAL IV SCH ×4 (01:46→18:13)
[2019-02-03] MEDS: metroNIDAZOLE 500 MG/100 ML BAG IV SCH ×3 (01:46→18:12)
--- NOTE | 2019-02-03 05:25 | Surgery Progress Note ---
Date of Service February 03, 2019 Assessment & Plan (1) Complication of feeding tube: leakage of G tube continues for CT contrast study today Ppn ordered- begins this afternoon hold TFs for now Will ask GI- thoughts- ? replace tube at some point ?- other G tube, ? G-J tube , other ( tube placed 11 days ago) Family very concerned about wt loss and poor calorie intake Internal Control Specialist helping with supplements Results & Data Vital Signs (Past 12 Hours) Vital Signs Temp Pulse Pulse Resp BP Pulse Ox 02/03/19 04:30 36.8 C 85 18 116/56 L 95 02/03/19 00:13 36.9 C 97 H 16 121/82 96 02/02/19 21:00 92 H 02/02/19 19:29 36.2 C L 84 19 112/76 93 PG Care Time/CCT Total # of Minutes Spent Total Time Spent with Patient: Total time spent is greater than 50% in coordination of care (as documented) at patient's floor/unit and/or counseling patient:
[2019-02-03] MEDS: CIPROFLOXACIN 400 MG/200 ML BAG IV SCH ×2 (05:52→18:12)
[2019-02-03] MEDS: LEVOTHYROXINE SODIUM 25 MCG TABLET PO SCH (05:52)
[2019-02-03 07:19] LABS: Basophils # (auto) 0.01 K/uL (0-0.2); Basophils % (auto) 0.1 %; Eosinophils # (auto) 0.02 K/uL (0-0.5); Eosinophils % (auto) 0.3 %; Hematocrit (blood only) 35.6 % (37-47); Hemoglobin 12.1 g/dL (12.0-16.0); Immature Granulocytes # (auto) 0.02 K/uL (0.00-0.02); Immature Granulocytes % (auto) 0.3 %; Lymphocytes # (auto) 2.12 K/uL (1.2-3.4); Lymphocytes % (auto) 26.7 %; Mean Corpuscular Hemoglobin 31.8 pg (25-34); Mean Corpuscular Volume 93.4 fL (80-100); Mean Platelet Volume 10.1 fL (7.4-10.4); Monocytes # (auto) 0.81 K/uL (0.11-0.59); Monocytes % (auto) 10.2 %; Neutrophils # (auto) 4.97 K/uL (1.4-6.5); Neutrophils % (auto) 62.4 %; Platelet Count 262 K/uL (130-400); RDW Coefficient of Variation 13.5 % (11.5-14.5); RDW Standard Deviation 45.8 fL (36.4-46.3); Red Blood Count 3.81 M/uL (4.2-5.4); White Blood Count 7.95 K/uL (4.8-10.8)
[2019-02-03 07:55] LABS: BUN Creatinine Ratio 14.6 (10-20); Calcium 8.7 mg/dl (8.5-10.1); Creatinine Clr Calc Pharmacy 49.2 ml/min; Est GFR (African American) 94.7; Est GFR (Non-African American) 81.7; Magnesium 1.9 mg/dl (1.8-2.4); Potassium 3.8 mmol/L (3.5-5.1)
[2019-02-03 07:57] LABS: Albumin Globulin Ratio 0.9 (0.9-2); Bilirubin,Total 0.9 mg/dl (0.2-1); Globulin 3.3 gm/dl (2.5-4.0); Total Protein 6.3 gm/dl (6.4-8.2)
[2019-02-03] MEDS ORDERED: IOVERSOL 100ml IV PRN (09:21)
--- NOTE | 2019-02-03 09:29 | CT Scan Report ---
CT abdomen w IV con CT DOSE: 174.61 mGycm CLINICAL HISTORY: Gastrostomy tube malfunction. TECHNIQUE: The patient was scanned following the injection of 50 cc of Gastroview to the patient's ga strostomy tube. The patient was also scanned in a dynamic helical fashion during intravenous administ ration of 94 cc of Optiray 320. A dose lowering technique was utilized adhering to the principles of ALARA. COMPARISON STUDY: CT scan dated 08/30/2016 FINDINGS: The visualized portions of the lung bases reveal no focal pulmonary consolidation and no significant pleural effusions. There is no pericardial effusion. There is small hiatal hernia. No hepatic or splenic masses are visualized. No gallbladder abnormality visualized. No pancreatic masses are visualized No adrenal masses are visualized. There are bilateral parapelvic renal cysts. No solid renal masses are visualized. There is no hydrone phrosis. There is no evidence for abdominal aortic dilatation. There is an indwelling gastrostomy tube. The tube is located within the stomach. No contrast extravas ation is visualized. There is infiltration of the anterior abdominal wall soft tissues adjacent to th e tract of the gastrostomy tube. Lateral to gastrostomy tube, to the left of midline, is a small suha ection containing both fluid and gas measuring 13 mm. This could represent a small abscess. IMPRESSION: 1. The patient's gastrostomy tube is positioned within the stomach. No contrast extravasation is visu alized 2. Infiltration of the anterior abdominal wall soft tissues adjacent to the gastrostomy tube. Lateral to the gastrostomy tube to the left of midline, there is a small fluid collection containing air chad bles measuring 13 mm. This could represent an abscess. Clinical correlation in this regard is advocat ed. 3. Hiatal hernia 4. Parapelvic renal cysts Electronically signed by: Dalton Landaverde M.D. 02/03/2019 9:28 AM
[2019-02-03] MEDS: TOCOPHERYL, DL-ALPHA 400 UNITS CAP PO SCH (09:55)
[2019-02-03] MEDS: PANTOprazole 40 MG TAB PO SCH (09:55)
[2019-02-03] MEDS: ASCORBIC ACID 500 MG TAB PO SCH (09:55)
[2019-02-03] MEDS: ASPIRIN 81 MG ECTAB PO SCH (09:55)
[2019-02-03] MEDS: ATORVASTATIN 40 MG TAB PO SCH (09:55)
[2019-02-03] MEDS: MULTIVITAMIN TAB PO SCH (09:55)
[2019-02-03] MEDS: CHOLECALCIFEROL 1,000 UNITS TAB PO SCH (09:56)
[2019-02-03] MEDS: CITALOPRAM 20 MG TAB PO SCH (09:56)
[2019-02-03] MEDS: RILUZOLE 50 MG PO SCH ×2 (09:56→20:57)
[2019-02-03] MEDS: CALCIUM 600MG + VIT D 400 IU TAB PO SCH ×2 (09:57→15:47)
[2019-02-03] MEDS: MELOXICAM 7.5 MG TAB PO SCH (09:59)
--- NOTE | 2019-02-03 10:17 | Gastrointestinal Consultation ---
Date of Consultation February 03, 2019 Assessment & Plan (1) Complication of feeding tube: Patient is a 68 yo female with a surgically placed gastrostomy tube after endoscopic placement was not possible due to post-Jaret anatomy. Patient is now experiencing leakage of a feculent-like material from her tube site. Tube feeds are being held and patient is NPO. Gastrografin study was normal. CT indicates infiltration of the anterior abdominal wall soft tissues adjacent to the gastrostomy tube. Lateral to the gastrostomy tube to the left of midline, there is a small fluid collection containing air bubbles measuring 13 mm concerning for an abscess. General surgery has added IV Reglan 10 mg q 6 hr to encourage emptying. Would advise close monitoring while on prokinetic medication given her pre-existing neurologic issues. Bowels are moving appropriately. Given normal gastrografin, abnormal CT findings, and overall clinical picture, I do not have anything further to offer from a gastroenterology standpoint but would advise continued surgical input. Thank you for allowing us to participate in the care of this patient. If you should have any questions or concerns, do not hesitate to call extension [phone] or [phone]. Present on Admission?: Yes Supervising Physician Co-Signing Physician Notes Agree with MARLINE Bailey as above I attempted to see the patient on 3 separate occasions today, and she was undergoing placement of a PICC line Recommend continued supportive care Labs and imaging reviewed History of Present Illness Attending Physician: Ramana Rivas History of Present Illness Patient is a 68 yo female with a PMH of ankylosing spondylitis, depression, hypothyroidism, hiatal hernia repair, psoriasis, osteoarthritis, CVA, & recent diagnosis of ALS. In December 2018, Dr. Fowler had attempted to endoscopically place a PEG tube, however due to her post-Jaret anatomy, placement was unsuccessful. She was then evaluated by Dr. Collins of general surgery and underwent a lap assisted gastrostomy placement on 01/23/2019. Family reports that they have had difficulty since the first tube feed with leaking. Over time, she noticed that a dark, bilious material and feculent material started leaking from the PEG site. She had a gastrografin study on 02/02/2019 that was unremarkable. General surgery added Reglan 10 mg IV q 6 hr and held her tube feeds. Patient reports she is emptying her bowels without difficulty. Per nursing there have been no changes since addition of Reglan. Patient has been NPO as well. A CT obtained this AM indicated infiltration of the anterior abdominal wall soft tissues adjacent to the gastrostomy tube. Lateral to the gastrostomy tube to the left of midline, there is a small fluid collection containing air bubbles measuring 13 mm concerning for an abscess. GI has been consulted by general surgery for an opinion. Allergies Allergy/AdvReac Type Severity Reaction Status Date / Time No Known Drug Allergies Allergy Unknown . Verified 02/01/19 11:51 Home Medications Home Medications Medication Instructions Recorded Confirmed Type aspirin 81 mg tablet,delayed 81 mg PO QAM 12/11/18 02/01/19 History release calcium citrate-vitamin D3 315 1 tab PO TID 12/11/18 02/01/19 History mg-200 unit tablet levothyroxine 25 mcg tablet 25 mcg PO QAM 12/11/18 02/01/19 History meloxicam 15 mg tablet 15 mg PO QAM 12/11/18 02/01/19 History cyclobenzaprine 5 mg tablet 5 mg PO TID PRN #30 tab 12/30/18 02/01/19 History cholecalciferol (vitamin D3) 5,000 unit PO QAM 01/07/19 02/01/19 History [Vitamin D3] multivitamin 1 tab PO QAM 01/07/19 02/01/19 History omeprazole 20 mg PO QAM 01/07/19 02/01/19 History riluzole 50 mg PO BID 01/07/19 02/01/19 History clopidogrel [Plavix] 75 mg PO QPM 01/10/19 02/01/19 History triamcinolone acetonide 0.1 % 1 appln DT TID PRN #5 gm 01/20/19 02/01/19 Rx dental paste ascorbic acid (vitamin C) [Vitamin 500 mg PO QAM 01/21/19 02/01/19 History C] atorvastatin 80 mg PO QAM 01/21/19 02/01/19 History beta carotene 7,500 unit PO QAM 01/21/19 02/01/19 History citalopram 20 mg PO QAM 01/21/19 02/01/19 History coQ10 (ubiquinol) 200 mg PO QAM 01/21/19 02/01/19 History vitamin E 400 unit PO QAM 01/21/19 02/01/19 History hydrocodone-acetaminophen [[place]] 1 - 2 tab PO .every 4-6 hours #15 01/23/19 02/01/19 Rx tab alendronate 70 mg tablet 70 mg PO .COMPLEX #5 tab 01/29/19 02/01/19 Rx Patient History Medical History History of CVA (cerebrovascular accident) x2; 10/2017, ?01/07/18- on plavix; residual speech impairment, RUE weakness and dysphagia Pulmonary embolism S/P hiatal hernia repair (2016)- no issues since Amyotrophic lateral sclerosis (ALS) recent diagnosis Ankylosing spondylitis Anxiety Diverticulitis hx Dysphagia reason for upcoming procedure GERD (gastroesophageal reflux disease) Gastrostomy tube in place (01/23/19) Laparoscopic Assisted Gastrostomy Tube Placement Dr. Collins 01/23/19 Hypothyroidism Osteoarthritis Osteoporosis Paraesophageal hernia Rectal prolapse Speech impairment r/t ALS and hx CVA Surgical History History of Jaret fundoplication H/O tubal ligation History of appendectomy History of colonoscopy History of esophagogastroduodenoscopy (EGD) History of tooth extraction Family History Father Family history of diabetes mellitus Sister Family history of diabetes mellitus Social History Preferred Language: [place]inean Communication Ability: Impaired Nurse Research Required: No Beliefs That Will Affect Care: None Current Living Situation: Spouse Other Information That Helps Us Care for You: Yes (Weakness of the mouth, generalized muscle and difficulty swallowing) Feels Safe at Home: Yes Smoking Status: Never smoker Second Hand Exposure: No ; Hx Alcohol Use: No Hx Substance Use: No Review of Systems Constitutional: no fever and no chills Eyes: no acute complaints Ear, Nose, Mouth, Throat: no acute complaints Respiratory: no acute complaints Cardiovascular: Additional Comments: no acute complaints Gastrointestinal: no abdominal pain, no constipation and no diarrhea/loose stools leakage around gastrostomy tube site Musculoskeletal: no acute complaints Integumentary: no acute complaints Neurologic: + gait abnormality, + unsteadiness and + abnormal speech Psychiatric: no acute issues Physical Exam Constitutional: WD/WN, vitals as above Eyes: PERRL, conjunctivae normal, anicteric sclerae ENMT: Nose: no external nose abnormality Neck: normal visual inspection Respiratory: normal respiratory effort, lungs clear to auscultation Cardiovascular: RRR, no murmur, no edema Gastrointestinal (Abdomen): Inspection/Auscultation: abdomen not distended Percussion/Palpation: abdomen soft; abdomen nontender feculent draining from gastrostomy site noted Musculoskeletal: did not attempt to ambulate the patient Skin: no rashes, warm and dry Neurologic: Speech / Cognition: + abnormal speech Psychiatric: Orientation: alert and oriented x 3 Results & Data Vital Signs (Past 12 Hours) Vital Signs Temp Pulse Resp BP Pulse Ox 02/03/19 06:56 36.7 C 90 17 102/60 94 02/03/19 04:30 36.8 C 85 18 116/56 L 95 02/03/19 00:13 36.9 C 97 H 16 121/82 96 PG Care Time/CCT Total # of Minutes Spent Total Time Spent with Patient: Total time spent is greater than 50% in coordination of care (as documented) at patient's floor/unit and/or counseling patient:
[2019-02-03] MEDS ORDERED: TPN/PPN CONSULT PHARMACY PRN (10:34)
[2019-02-03] MEDS ORDERED: LIDOCAINE HCL 1% 20 ML VIAL ONE (11:21)
--- NOTE | 2019-02-03 12:05 | Surgery Progress Note ---
Date of Service February 03, 2019 Assessment & Plan (1) Complication of feeding tube: CT study- Lg balloon in stomach- tube w/n stomach no extrav, fluid/gas pocket to Lt of G tube tract removed all fluid from balloon and reinflated with 8 cc opened incision 1 cm Lt of tract to drain site seen on CT wick placed picc ordered for possible Tpn discuss G-J tube with GI Results & Data Vital Signs (Past 12 Hours) Vital Signs Temp Pulse Resp BP Pulse Ox 02/03/19 11:13 36.7 C 94 H 18 115/70 95 02/03/19 06:56 36.7 C 90 17 102/60 94 02/03/19 04:30 36.8 C 85 18 116/56 L 95 02/03/19 00:13 36.9 C 97 H 16 121/82 96 PG Care Time/CCT Total # of Minutes Spent Total Time Spent with Patient: Total time spent is greater than 50% in coordination of care (as documented) at patient's floor/unit and/or counseling patient:
[2019-02-03] MEDS ORDERED: DEXTROSE 10% 1,000 ML IV SCH (12:45)
[2019-02-03] MEDS: DEXTROSE 10% 1,000 ML IV SCH ×2 (13:12→18:31)
[2019-02-03] MEDS ORDERED: CUSTOM PERIPHERAL PN IV SCH (16:00)
[2019-02-03] MEDS ORDERED: ENOXAPARIN INJ 40 MG/0.4 ML SYR SQ ONE (16:29)
--- NOTE | 2019-02-03 17:41 | XRay Report ---
XR chest 1V portable CLINICAL HISTORY: 68 years-old Female presenting with for picc placement. TECHNIQUE: Portable upright AP view of the chest was obtained. COMPARISON: 10/29/2015. FINDINGS: Atherosclerosis of the aortic arch. Cardiac silhouette mildly enlarged. No focal opacity. No large ef fusion or pneumothorax. The right upper extremity PICC is looped and retracted in the right axillary vein. Surgical clips may project over the epigastrium. IMPRESSION: 1. Appropriately positioned PICC, which is looped and terminates within the right axillary vein. 2. Mild cardiomegaly. Electronically signed by: Rosalio Rose M.D. 02/03/2019 5:40 PM
[2019-02-03] MEDS: MENTHOL-ZINC OXIDE 360 APPLN/120 GM TUBE EXT SCH (20:56)
[2019-02-03] MEDS: CLOPIDOGREL BISULFATE 75 MG TAB PO SCH (20:56)
[2019-02-03 21:14] LABS: Calcium 9.2 mg/dl (8.5-10.1); Creatinine Clr Calc Pharmacy 46.2 ml/min; Est GFR (African American) 87.7; Est GFR (Non-African American) 75.7; Magnesium 2.1 mg/dl (1.8-2.4); Phosphorus 3.1 mg/dl (2.5-4.9); Potassium 3.6 mmol/L (3.5-5.1)
[2019-02-03] MEDS: TRIAMCINOLONE ACET 0.1% ORABASE 5 GM TUBE MT PRN (21:39)
[2019-02-03] MEDS ORDERED: guaiFENesin 600 MG TABCR PO PRN (22:01)
[2019-02-03] MEDS ORDERED: LORazepam 0.25 MG/0.5 ML VIAL IV PRN (22:30)
--- NOTE | 2019-02-03 22:34 | Hospitalist Progress Note ---
Date of Service February 03, 2019 Assessment & Plan (1) Complication of feeding tube: General surgery consulted Dr. Coleman appreciated, recommended , reglan, stoma powder/ paste as needed, low volume TF will consult dietitian to consider a different low volume formula PPN for the moment has been ordered by Surgery. Family is in agreement. There is difficulty in obtain a central line. In regards to her complication of the feeding tube: there appears to be a small abcess. The lesion is however draining and will continue current antibiotic consult social services designee to give them a feeding pump D/W Dr. Coleman and will order CT scan ABD/Pelvis w O/I contrast to R/O intestinal stricture or obstruction D/W radiologist Dr. morales, options are limited to other imaging modules one suppository bisacodyl x 1 Full code (2) ALS (amyotrophic lateral sclerosis): Patient has a terminal illness with no cure. Majority of patients live 2-5 years past time of diagnosis. I reviewed note by her visit with the ALS specialist in [place]. Patient has multiple complications from this. Her main issue is her weight loss. Given that the G tube is compromised, will at this time use PPN. However this also has risks in itself, including infection. Another issue is the possibility of refeeding syndrome. will need to monitor. She also has a rash likely from her saliva. Curently placing vaseline below her lower lip. (3) Ankylosing spondylitis: D/C meloxicam due to GI bleed will start ultram Continue cyclobenzaprine 5 mg p.o. 3 times daily as needed for stiffness (4) Cerebrovascular disease: Continue clopidogrel 75 mg p.o. every afternoon Continue aspirin 81 mg tablets p.o. every morning will need to switch PO meds to IBV. (5) Hypothyroidism: Continue levothyroxine 25 MCG's p.o. every morning will switch to IV. TSH was 1.62 in 11/2018 (6) Impaired fasting glucose: A1c was 5.8 on 04/2018 Diabetic control diet (7) History of CVA (cerebrovascular accident): Continue clopidogrel and atorvastatin aspirin (8) Depression: Continue citalopram 20 mg p.o. every morning Spent 75 minutes in management of patient. 2:45 to 4:00pm Subjective Patient is lying in bed, with family at bedside. Patient is nonverbal but communicates via note pad. Multiple concerns are noted. Main concern appears to be weight loss, family would like diet to be started. Other concerns are her redness around her lower lip. Review of Systems Review of Systems: Constitutional: No fever / no chills / no sweats / no weakness / no fatigue positive weight loss Eyes: no blurring of vision / no eye pain / no discharge / no redness ENT: no hearing loss / no epistaxis /no swallowing problems Respiratory: no cough / no wheezing / no SOB / no hemoptysis Cardiovascular: no Chest pain / no lower extremity edema / no palpitation Abdomen: no pain / no nausea / no vomiting / small bowel movements, fecal material leaking around the GT opening Musculoskeletal: no joint pain / no muscle pain / no joint swelling Genitourinary: no dysuria / no incontinence / no urinary retention Neurologic: no focal weakness / no numbness/tingling / no ataxia Psychiatric: no depression symptoms / no anxiety / no insomnia Endocrine: no excessive thirst / no excessive urination Hematologic: no abnormal bleeding / no bruising / no LN swelling Skin: No rash / no pallor Physical Exam Physical Exam: General patient appears to be frail elderly female , thin but not cachectic comfortable, not in acute distress HEENT: Atraumatic , normocephalic /no jaundice /no pallor /anicteric /no dry mucous membrane /normal external ear inspection Neck: Supple /no swelling /central trach Heart: S1/S2 normal/regular rate and rhythm/no gallop /no rub /no murmur Lungs: Clear to auscultation bilaterally/normal chest with expansion/no rhonchi/no rales/no wheezing/no use of accessory muscles of respiration Abdomen: Soft/nontender/no guarding/no rebound/ feeding tube has brown thick material leaking around it with bad odor Musculoskeletal: No swelling/no edema/no tenderness/normal range of motion Neuro exam: Awake alert oriented 3/cranial nerves II through XII appear to be intact/sensation intact/moves all extremities/no abnormal movements, has dysarthria Psychiatric evaluation: No depressed mood/normal affect Skin: No rash on exposed skin area/no erythema Extremity: Normal pulse/no pitting edema/no clubbing or cyanosis Results & Data Vital Signs (Past 12 Hours) Vital Signs Temp Pulse Pulse Resp BP BP Pulse Ox 02/03/19 19:29 36.9 C 93 H 21 129/85 94 02/03/19 18:05 113 H 02/03/19 15:03 36.9 C 113 H 16 144/80 H 94 02/03/19 11:13 36.7 C 94 H 18 115/70 95 PG Care Time/CCT Total # of Minutes Spent Total Time Spent: 75 Total Time Spent with Patient: Total time spent is greater than 50% in coordination of care (as documented) at patient's floor/unit and/or counseling patient: Prolonged Care Time Prolonged Care Time: Yes Total Prolonged Care Time: 75 noted in note.
[2019-02-04] MEDS: METOCLOPRAMIDE HCL INJ 5 MG/ML 2 ML VIAL IV SCH ×2 (00:02→05:49)
[2019-02-04] MEDS: LORazepam 0.25 MG/0.5 ML VIAL IV PRN (00:02)
[2019-02-04] MEDS: metroNIDAZOLE 500 MG/100 ML BAG IV SCH ×4 (00:02→23:43)
[2019-02-04 05:38] LABS: Basophils # (auto) 0.02 K/uL (0-0.2); Basophils % (auto) 0.2 %; Eosinophils # (auto) 0.06 K/uL (0-0.5); Eosinophils % (auto) 0.7 %; Hematocrit (blood only) 35.8 % (37-47); Immature Granulocytes # (auto) 0.02 K/uL (0.00-0.02); Immature Granulocytes % (auto) 0.2 %; Lymphocytes # (auto) 2.38 K/uL (1.2-3.4); Lymphocytes % (auto) 27.7 %; Mean Corpuscular Hemoglobin 31.7 pg (25-34); Mean Corpuscular Hgb Conc 33.5 g/dL (32-36); Mean Corpuscular Volume 94.7 fL (80-100); Mean Platelet Volume 9.7 fL (7.4-10.4); Monocytes # (auto) 1.05 K/uL (0.11-0.59); Monocytes % (auto) 12.2 %; Neutrophils # (auto) 5.06 K/uL (1.4-6.5); Platelet Count 254 K/uL (130-400); RDW Coefficient of Variation 13.5 % (11.5-14.5); RDW Standard Deviation 47.1 fL (36.4-46.3); Red Blood Count 3.78 M/uL (4.2-5.4); White Blood Count 8.59 K/uL (4.8-10.8)
[2019-02-04] MEDS: CIPROFLOXACIN 400 MG/200 ML BAG IV SCH ×2 (05:49→17:40)
[2019-02-04 06:11] LABS: Albumin Level 2.9 gm/dl (3.4-5.0); BUN Creatinine Ratio 25.1 (10-20); Calcium 8.4 mg/dl (8.5-10.1); Creatinine Clr Calc Pharmacy 54.6 ml/min; Est GFR (African American) 104.6; Est GFR (Non-African American) 90.3; Magnesium 2.2 mg/dl (1.8-2.4); Potassium 3.9 mmol/L (3.5-5.1)
[2019-02-04 06:13] LABS: Albumin Globulin Ratio 0.9 (0.9-2); Globulin 3.4 gm/dl (2.5-4.0); Phosphorus 3.6 mg/dl (2.5-4.9); Total Protein 6.3 gm/dl (6.4-8.2)
--- NOTE | 2019-02-04 07:31 | Surgery Progress Note ---
Date of Service February 04, 2019 Assessment & Plan (1) Complication of feeding tube: picc unsuccessful, to try today leakage continues, options are limited from surgical stdpt may need to remove tube at some point poor gastric emptying doubt addnl surgical or GI procedures would be done here for some type of feeding tube will discuss options with GI/Surgery ppn/Tpn for now- may req other IV access Results & Data Vital Signs (Past 12 Hours) Vital Signs Temp Pulse Pulse Resp BP Pulse Ox 02/04/19 07:12 36.3 C L 83 16 101/64 95 02/04/19 03:20 36.8 C 86 16 107/64 95 02/03/19 23:50 103 H 02/03/19 23:43 37.0 C 83 16 110/56 L 95 PG Care Time/CCT Total # of Minutes Spent Total Time Spent with Patient: Total time spent is greater than 50% in coordination of care (as documented) at patient's floor/unit and/or counseling patient:
[2019-02-04] MEDS: TOCOPHERYL, DL-ALPHA 400 UNITS CAP PO SCH (09:17)
[2019-02-04] MEDS: MELOXICAM 7.5 MG TAB PO SCH (09:17)
[2019-02-04] MEDS: CITALOPRAM 20 MG TAB PO SCH (09:18)
[2019-02-04] MEDS: CHOLECALCIFEROL 1,000 UNITS TAB PO SCH (09:18)
[2019-02-04] MEDS: ASCORBIC ACID 500 MG TAB PO SCH (09:18)
[2019-02-04] MEDS: ATORVASTATIN 40 MG TAB PO SCH (09:19)
[2019-02-04] MEDS: MULTIVITAMIN TAB PO SCH (09:19)
[2019-02-04] MEDS: ASPIRIN 81 MG ECTAB PO SCH (09:19)
[2019-02-04] MEDS: PANTOprazole 40 MG TAB PO SCH (09:20)
[2019-02-04] MEDS: ENOXAPARIN INJ 40 MG/0.4 ML SYR SQ SCH (09:20)
[2019-02-04] MEDS: RILUZOLE 50 MG PO SCH ×2 (09:20→20:16)
[2019-02-04] MEDS: MENTHOL-ZINC OXIDE 360 APPLN/120 GM TUBE EXT SCH ×2 (09:21→20:16)
[2019-02-04] MEDS: LEVOTHYROXINE SODIUM 12.5 MCG in SYRINGE 0 ML IV SCH (09:22)
--- NOTE | 2019-02-04 13:37 | Gastrointestinal Consultation ---
Date of Consultation February 04, 2019 Assessment & Plan (1) ALS (amyotrophic lateral sclerosis): (2) Complication of feeding tube: Pt is a 68 y/o female w hx of ALS, dysphagia, currently seen for leaking G tube. PEG unable to be placed endoscopically given hx of Jaret and also one to one localization wasn't able to be achieved. She had 22 fr G tube placement via surgery on 01/23/19. reports that since POD #1, her Gtube site had been leaking whenever she received feeding. She also developed a small abscess on her abdominal wall s/p I&D, packed. When I attempted to flush her G tube, water seems to leak from the post I&D site. - Continue PPN - Hold TF per Gtube - Continue antibx coverage for abd wall abscess - Case discussed and reviewed w Dr. Dougherty. Several options listed: repeat EGD to check if new site of PEG insertion can be found vs placing an extension over current G tube for end tip to jejunum vs placement of PEJ tube. Family agreeable for repeat EGD evaluation before we can decide what type of new feeding tube can be placed. Thus will keep pt NPO and plan on EGd on 02/05. Supervising Physician Co-Signing Physician Notes I performed a history and physical examination of the patient, including specifically on physical exam - soft, nontender abdomen. I have discussed the patient's management with Erika. Please refer to the nurse practitioner's note for the documented findings and plan of care. 68 female woth dysphagia due to ALS, Hiatal hernia and prior abdominal adhesions, attempted PEG last week but now good transillumination, gastrostomy done surgically but has issues with leakage and surrounding abscess. I examined the tube today and there seems to be a communication between the tube/stoma with the neaby abdominal wall incision. Also there is significant leak from the tube and the stoma is no occluded despite the large size balloon. I explained to the patient and family that given malfunctioning gastrostomy, we should re attempt endoscopic placement, perhaps a PEJ. ALso will need to close the stoma endoscopically. Family will discuss with and get back to me. I explained risk, benefit and alternatives, risk of perforation requiring surgical intervention. History of Present Illness Reason for Consultation: Second opinion for leaking G tube Requesting Physician: Dr. Ramana Rivas Attending Physician: Dr. Payal Dougherty History of Present Illness Pt is a 68 y/o female w hx of ALS, , hx of CVA, hx fo Jaret fundoplication who is seen as a second opinion for leaking G tube and possible placement of GJ tube. She failed her video swallow showing signs of aspiration w thin liquids, PEG requested to keep up w her nutrition. PEG placement via endoscopy was attempted by Dr. Joey Fowler ([facility]) but one to one localization cannot be achieved thus PEG wasn't placed. Eventually pt referred to Surgery and had 22Fr G tube placement in OR by Dr. Leroy Collins on 01/23/19. Pt's reports that since POD 1, G tube insertion site had been leaking. She is currently also noted to have a small abscess on the abdominal wall over on L side of G tube. This had been I&D'd by Dr. Coleman, packed w wick currently. She is now on Cipro and Flagyl IV antibx. Pt's tube feeding has been held for days. She is on PPN now. Still taking meds PO. RN noted crushed meds, applesauce and chocolate milk to leak around G tube insertion site. On my evaluation, when I flushed tube w 30mL of water, water was leaking from the post I&D site. Allergies Allergy/AdvReac Type Severity Reaction Status Date / Time No Known Drug Allergies Allergy Unknown . Verified 02/01/19 11:51 Home Medications Home Medications Medication Instructions Recorded Confirmed Type aspirin 81 mg tablet,delayed 81 mg PO QAM 12/11/18 02/01/19 History release calcium citrate-vitamin D3 315 1 tab PO TID 12/11/18 02/01/19 History mg-200 unit tablet levothyroxine 25 mcg tablet 25 mcg PO QAM 12/11/18 02/01/19 History meloxicam 15 mg tablet 15 mg PO QAM 12/11/18 02/01/19 History cyclobenzaprine 5 mg tablet 5 mg PO TID PRN #30 tab 12/30/18 02/01/19 History cholecalciferol (vitamin D3) 5,000 unit PO QAM 01/07/19 02/01/19 History [Vitamin D3] multivitamin 1 tab PO QAM 01/07/19 02/01/19 History omeprazole 20 mg PO QAM 01/07/19 02/01/19 History riluzole 50 mg PO BID 01/07/19 02/01/19 History clopidogrel [Plavix] 75 mg PO QPM 01/10/19 02/01/19 History triamcinolone acetonide 0.1 % 1 appln DT TID PRN #5 gm 01/20/19 02/01/19 Rx dental paste ascorbic acid (vitamin C) [Vitamin 500 mg PO QAM 01/21/19 02/01/19 History C] atorvastatin 80 mg PO QAM 01/21/19 02/01/19 History beta carotene 7,500 unit PO QAM 01/21/19 02/01/19 History citalopram 20 mg PO QAM 01/21/19 02/01/19 History coQ10 (ubiquinol) 200 mg PO QAM 01/21/19 02/01/19 History vitamin E 400 unit PO QAM 01/21/19 02/01/19 History hydrocodone-acetaminophen [Jackhorn] 1 - 2 tab PO .every 4-6 hours #15 01/23/19 02/01/19 Rx tab alendronate 70 mg tablet 70 mg PO .COMPLEX #5 tab 01/29/19 02/01/19 Rx metformin ER 500 mg 500 mg PO DAILY tab 02/04/19 02/04/19 History tablet,extended release 24 hr Patient History Medical History History of CVA (cerebrovascular accident) x2; 10/2017, ?01/07/18- on plavix; residual speech impairment, RUE weakness and dysphagia Pulmonary embolism S/P hiatal hernia repair (2016)- no issues since Amyotrophic lateral sclerosis (ALS) recent diagnosis Ankylosing spondylitis Anxiety Diverticulitis hx Dysphagia reason for upcoming procedure GERD (gastroesophageal reflux disease) Gastrostomy tube in place (01/23/19) Laparoscopic Assisted Gastrostomy Tube Placement Dr. Collins 01/23/19 Hypothyroidism Osteoarthritis Osteoporosis Paraesophageal hernia Rectal prolapse Speech impairment r/t ALS and hx CVA Surgical History History of Jaret fundoplication H/O tubal ligation History of appendectomy History of colonoscopy History of esophagogastroduodenoscopy (EGD) History of tooth extraction Family History Father Family history of diabetes mellitus Sister Family history of diabetes mellitus Social History Preferred Language: Luxembourgish Communication Ability: Impaired Silver Designer Required: No Beliefs That Will Affect Care: None Current Living Situation: Spouse Feels Safe at Home: Yes Smoking Status: Never smoker Second Hand Exposure: No ; Hx Alcohol Use: No Hx Substance Use: No Review of Systems Review of Systems: Unable to obtain from pt as she's non verbal. Physical Exam Skin: G tube in mid upper abd area; skin breakdown around insertion site; clear drainage from G tube. L side of G tube w post I&D of abscess, wick in place. Abd soft non tender otherwise. Results & Data Vital Signs (Past 12 Hours) Vital Signs Temp Pulse Pulse Resp BP Pulse Ox 02/04/19 11:51 36.7 C 99 H 20 141/81 H 94 02/04/19 08:00 103 H 02/04/19 07:12 36.3 C L 83 16 101/64 95 02/04/19 03:20 36.8 C 86 16 107/64 95
[2019-02-04] MEDS ORDERED: CUSTOM CENTRAL PN IV SCH (16:00)
[2019-02-04] MEDS: DEXTROSE 10% 1,000 ML IV SCH (16:22)
[2019-02-04] MEDS: CLOPIDOGREL BISULFATE 75 MG TAB PO SCH (20:17)
[2019-02-04] MEDS: ATROPINE SULFATE 1% OP SOLN 2 ML BTL PO PRN (20:21)
--- NOTE | 2019-02-04 22:28 | Hospitalist Progress Note ---
Date of Service February 04, 2019 Assessment & Plan (1) Complication of feeding tube: General surgery consulted Dr. Coleman appreciated, recommended , reglan, stoma powder/ paste as needed, low volume TF Patient will geta second opinion with gastro. May get a different feeding tube. May need old one pulled out. Concern with severe dysphagia. will place on atropine. Patient may aspirate even when starting fluids. Central line obtained. Patient placed on TPN. Family is in agreement. There is difficulty in obtain a central line. In regards to her complication of the feeding tube: there appears to be a small abcess. The lesion is however draining and will continue current antibiotic consult socially responsible investment adviser to give them a feeding pump D/W Dr. Coleman and will order CT scan ABD/Pelvis w O/I contrast to R/O intestinal stricture or obstruction D/W radiologist Dr. morales, options are limited to other imaging modules one suppository bisacodyl x 1 Full code (2) ALS (amyotrophic lateral sclerosis): Patient has a terminal illness with no cure. Majority of patients live 2-5 years past time of diagnosis. I reviewed note by her visit with the ALS specialist in [place]. Patient has multiple complications from this. Her main issue is her weight loss. Given that the G tube is compromised, will at this time use PPN. However this also has risks in itself, including infection. Another issue is the possibility of refeeding syndrome. will need to monitor. She also has a rash likely from her saliva. Currently placing vaseline below her lower lip. will obtain a neuro consult for further input. (3) Ankylosing spondylitis: D/C meloxicam due to GI bleed will start ultram Continue cyclobenzaprine 5 mg p.o. 3 times daily as needed for stiffness (4) Cerebrovascular disease: Continue clopidogrel 75 mg p.o. every afternoon Continue aspirin 81 mg tablets p.o. every morning will need to switch PO meds to IBV. (5) Hypothyroidism: Continue levothyroxine 25 MCG's p.o. every morning will switch to IV. TSH was 1.62 in 11/2018 (6) Impaired fasting glucose: A1c was 5.8 on 04/2018 Diabetic control diet (7) History of CVA (cerebrovascular accident): Continue clopidogrel and atorvastatin aspirin (8) Depression: Continue citalopram 20 mg p.o. every morning Spent 35 minutes in management of patient. Subjective Patient communicates via pad that she feels better and has more energy. She does complain that she is having difficulty swallowing, and she feels like she is choking on saliva. And she would like something to help decrease the saliva. Review of Systems Review of Systems: Constitutional: No fever / no chills / no sweats / no weakness / no fatigue positive weight loss Eyes: no blurring of vision / no eye pain / no discharge / no redness ENT: no hearing loss / no epistaxis /no swallowing problems Respiratory: no cough / no wheezing / no SOB / no hemoptysis Cardiovascular: no Chest pain / no lower extremity edema / no palpitation Abdomen: no pain / no nausea / no vomiting / small bowel movements, fecal material leaking around the GT opening Musculoskeletal: no joint pain / no muscle pain / no joint swelling Genitourinary: no dysuria / no incontinence / no urinary retention Neurologic: no focal weakness / no numbness/tingling / no ataxia Psychiatric: no depression symptoms / no anxiety / no insomnia Endocrine: no excessive thirst / no excessive urination Hematologic: no abnormal bleeding / no bruising / no LN swelling Skin: No rash / no pallor Physical Exam Physical Exam: General patient appears to be frail elderly female , thin but not cachectic comfortable, not in acute distress HEENT: Atraumatic , normocephalic /no jaundice /no pallor /anicteric /no dry mucous membrane /normal external ear inspection Neck: Supple /no swelling /central trach Heart: S1/S2 normal/regular rate and rhythm/no gallop /no rub /no murmur Lungs: Clear to auscultation bilaterally/normal chest with expansion/no rhonchi/ no rales/no wheezing/no use of accessory muscles of respiration Abdomen: Soft/nontender/no guarding/no rebound/ feeding tube has brown thick material leaking around it with bad odor Musculoskeletal: No swelling/no edema/no tenderness/normal range of motion Neuro exam: Awake alert oriented 3/cranial nerves II through XII appear to be intact/sensation intact/moves all extremities/no abnormal movements, has dysarthria Psychiatric evaluation: No depressed mood/normal affect Skin: No rash on exposed skin area/no erythema Extremity: Normal pulse/no pitting edema/no clubbing or cyanosis Results & Data Vital Signs (Past 12 Hours) Vital Signs Temp Pulse Resp BP Pulse Ox 02/04/19 18:27 36.8 C 98 H 18 112/78 94 02/04/19 15:22 37.0 C 94 H 15 114/79 95 02/04/19 11:51 36.7 C 99 H 20 141/81 H 94 PG Care Time/CCT Total # of Minutes Spent Total Time Spent with Patient: Total time spent is greater than 50% in coordination of care (as documented) at patient's floor/unit and/or counseling patient:
--- NOTE | 2019-02-05 06:50 | Surgery Progress Note ---
Date of Service February 05, 2019 Assessment & Plan (1) Complication of feeding tube: because current G tube cont to leak- will need to be removed Dr Dougherty to attempt placement of G-J tube or endoscopic jejunostomy later today via new site pt now on [address] via picc discussed above with on phone last pm and he is satisfied with plan Results & Data Vital Signs (Past 12 Hours) Vital Signs Temp Pulse Resp BP Pulse Ox 02/05/19 03:35 36.7 C 82 16 105/65 96 02/04/19 23:59 37.0 C 97 H 16 107/71 95 PG Care Time/CCT Total # of Minutes Spent Total Time Spent with Patient: Total time spent is greater than 50% in coordination of care (as documented) at patient's floor/unit and/or counseling patient:
[2019-02-05 08:24] LABS: BUN Creatinine Ratio 32.9 (10-20); Calcium 8.3 mg/dl (8.5-10.1); Creatinine Clr Calc Pharmacy 55.3 ml/min; Est GFR (African American) 105.1; Est GFR (Non-African American) 90.7; Magnesium 2.1 mg/dl (1.8-2.4); Potassium 3.9 mmol/L (3.5-5.1)
[2019-02-05 08:25] LABS: Phosphorus 3.5 mg/dl (2.5-4.9)
[2019-02-05] MEDS: ATROPINE SULFATE 1% OP SOLN 2 ML BTL PO PRN (08:27)
[2019-02-05] MEDS ORDERED: CEFAZOLIN 2000MG 2,000 MG/15 ML SYR IV ONE (08:29)
[2019-02-05] MEDS ORDERED: cefTRIAXone SODIUM 2,000 MG in DEXTROSE 5% 50 ML IV SCH (09:00)
--- NOTE | 2019-02-05 09:05 | Anesthesiology Consultation ---
Date of Service February 05, 2019 Assessment & Plan (1) Encounter for pre-operative examination: (2) Encounter for pre-operative examination: History Surgery Operation Date: 02/05/19 08:30 Proposed Procedures p Esophagogastroduodenoscopy Dr Ladonna Dougherty MD s Peg Tube Placement Dr Ladonna Dougherty MD Height/Weight Height: 4 ft 9 in Weight: 51.2 kg Allergies Allergy/AdvReac Type Severity Reaction Status Date / Time No Known Drug Allergies Allergy Unknown . Verified 02/01/19 11:51 ciprofloxacin Allergy Irritable Verified 02/04/19 18:57 Medications Home Medications Medication Instructions Recorded Confirmed Last Taken aspirin 81 mg tablet,delayed 81 mg PO QAM 12/11/18 02/01/19 01/09/19 10:00 release calcium citrate-vitamin D3 315 1 tab PO TID 12/11/18 02/01/19 01/21/19 08:00 mg-200 unit tablet levothyroxine 25 mcg tablet 25 mcg PO QAM 12/11/18 02/01/19 01/22/19 08:00 meloxicam 15 mg tablet 15 mg PO QAM 12/11/18 02/01/19 01/22/19 08:00 cyclobenzaprine 5 mg tablet 5 mg PO TID PRN #30 tab 12/30/18 02/01/19 01/22/19 08:00 cholecalciferol (vitamin D3) 5,000 unit PO QAM 01/07/19 02/01/19 01/21/19 08:00 [Vitamin D3] multivitamin 1 tab PO QAM 01/07/19 02/01/19 01/21/19 08:00 omeprazole 20 mg PO QAM 01/07/19 02/01/19 01/22/19 08:00 riluzole 50 mg PO BID 01/07/19 02/01/19 01/22/19 18:00 clopidogrel [Plavix] 75 mg PO QPM 01/10/19 02/01/19 01/17/19 08:00 triamcinolone acetonide 0.1 % 1 appln DT TID PRN #5 gm 01/20/19 02/01/19 08/01/13 18:00 dental paste ascorbic acid (vitamin C) [Vitamin 500 mg PO QAM 01/21/19 02/01/19 01/21/19 08:00 C] atorvastatin 80 mg PO QAM 01/21/19 02/01/19 01/22/19 20:00 beta carotene 7,500 unit PO QAM 01/21/19 02/01/19 01/21/19 08:00 citalopram 20 mg PO QAM 01/21/19 02/01/19 01/22/19 08:00 coQ10 (ubiquinol) 200 mg PO QAM 01/21/19 02/01/19 01/21/19 08:00 vitamin E 400 unit PO QAM 01/21/19 02/01/19 01/21/19 08:00 hydrocodone-acetaminophen [[place]] 1 - 2 tab PO .every 4-6 hours #15 01/23/19 02/01/19 Unknown tab alendronate 70 mg tablet 70 mg PO .COMPLEX #5 tab 01/29/19 02/01/19 Unknown metformin ER 500 mg 500 mg PO DAILY tab 02/04/19 02/04/19 Unknown tablet,extended release 24 hr Active Medications Generic Name Dose Route Start Last Admin Trade Name Freq PRN Reason Stop Dose Admin Alendronate Sodium 70 mg 02/02/19 06:30 02/02/19 05:57 Fosamax PO 03/04/19 06:29 70 mg Elizabeth@[id number] LAVINIA Administration Ascorbic Acid 500 mg 02/02/19 09:00 02/04/19 09:18 Vitamin C PO 03/04/19 08:59 500 mg QAM LAVINIA Administration Aspirin 81 mg 02/02/19 09:00 02/04/19 09:19 Ecotrin Ectab PO 03/04/19 08:59 81 mg QAM LAVINIA Administration Atorvastatin Calcium 80 mg 02/02/19 09:00 02/04/19 09:19 Lipitor PO 03/04/19 08:59 80 mg QAM LAVINIA Administration Atropine Sulfate 4 drops 02/04/19 19:34 02/05/19 08:27 Atropine Sulfate 1% Oph Soln PO 03/06/19 19:44 4 drops Q4H PRN Administration secretions Calamine/Phenol 1 appln 02/03/19 21:00 02/04/19 20:16 Calmoseptine EXT 03/05/19 20:59 Not Given BID LAVINIA Citalopram Hydrobromide 20 mg 02/02/19 09:00 02/04/19 09:18 Celexa PO 03/04/19 08:59 20 mg QAM LAVINIA Administration Clopidogrel Bisulfate 75 mg 02/01/19 21:00 02/04/19 20:17 Plavix PO 03/03/19 20:59 Not Given QPM LAVINIA Enoxaparin Sodium 40 mg 02/04/19 09:00 02/04/19 09:20 Lovenox SQ 03/06/19 08:59 40 mg QAM LAVINIA Administration Guaifenesin 600 mg 02/03/19 22:01 02/03/19 22:33 Mucinex PO 03/06/19 08:59 600 mg Q12 PRN Administration Cough Dextrose 1,000 mls @ 15 mls/hr 02/02/19 16:30 02/04/19 16:22 D10w IV 03/04/19 16:29 Not Given .Q24H LAVINIA KVO Metronidazole 500 mg in 100 mls @ 100 mls/hr 02/03/19 17:00 02/05/19 09:26 Flagyl IV 02/12/19 16:59 100 mls/hr Q8H LAVINIA Administration Lorazepam 0.25 mg in 0.5 mls @ 0.5 mls/min 02/03/19 22:34 02/04/19 00:02 Ativan IV 03/05/19 22:29 0.5 mls/min HS PRN Administration Sleep Levothyroxine Sodium 12.5 mcg/ 0.625 mls @ 2 mls/min 02/04/19 09:00 02/05/19 09:27 Syringe IV 03/06/19 08:59 2 mls/min DAILY@0900 LAVINIA Administration Ceftriaxone Sodium 2,000 mg/ 70 mls @ 100 mls/hr 02/05/19 09:00 02/05/19 10:09 Dextrose IV 02/15/19 08:59 100 mls/hr DAILY LAVINIA Administration Protocol Ioversol 94 ml 02/03/19 09:21 02/03/19 09:21 Optiray 320 100ml IV 02/07/19 09:20 94 ml ONCE PRN Administration Interaction Checking Meloxicam 15 mg 02/02/19 09:00 02/04/19 09:17 Mobic PO 03/04/19 08:59 15 mg QAM LAVINIA Administration Multivitamins 1 tab 02/02/19 09:00 02/04/19 09:19 Multivitamin Tab PO 03/04/19 08:59 1 tab QAM LAVINIA Administration Multivitamins/Minerals 1 tab 02/01/19 21:00 02/03/19 15:47 Caltrate Plus PO 03/03/19 20:59 Not Given TID LAVINIA Riluzole 50 Mg 1 ea 02/01/19 21:00 02/05/19 09:37 Tablet: Non- PO 03/03/19 20:59 50 mg Formulary Patient's Q12 LAVINIA Administration Own Med Nutrition (Parenteral) 1 bag 02/04/19 16:00 02/04/19 16:22 Custom Central Pn IV 02/05/19 15:59 1 bag TODAY@1600 LAVINIA Administration Protocol Pantoprazole Sodium 40 mg 02/02/19 09:00 02/04/19 09:20 Protonix PO 03/04/19 08:59 40 mg QAM LAVINIA Administration Protocol Triamcinolone Acetonide 1 appln 02/01/19 16:13 02/03/19 21:39 Kenalog Orabase [place] 03/03/19 16:12 1 appln TID PRN Administration mouth irritation Vitamin D 5,000 units 02/02/19 09:00 02/04/19 09:18 Vitamin D3 PO 03/04/19 08:59 5,000 units QAM LAVINIA Administration Vitamin E 400 units 02/02/19 09:00 02/04/19 09:17 Vitamin E PO 03/04/19 08:59 400 units QAM LAVINIA Administration Zolpidem Tartrate 5 mg 02/01/19 16:13 02/03/19 21:39 Ambien PO 03/03/19 16:12 5 mg HS PRN Administration Sleep Past Medical History Medical History History of CVA (cerebrovascular accident) x2; 10/2017, ?01/07/18- on plavix; residual speech impairment, RUE weakness and dysphagia Pulmonary embolism S/P hiatal hernia repair (2016)- no issues since Amyotrophic lateral sclerosis (ALS) recent diagnosis Ankylosing spondylitis Anxiety Diverticulitis hx Dysphagia reason for upcoming procedure GERD (gastroesophageal reflux disease) Gastrostomy tube in place (01/23/19) Laparoscopic Assisted Gastrostomy Tube Placement Dr. Collins 01/23/19 Hypothyroidism Osteoarthritis Osteoporosis Paraesophageal hernia Rectal prolapse Speech impairment r/t ALS and hx CVA Past Family History Family History Father Family history of diabetes mellitus Sister Family history of diabetes mellitus Past Surgical History Surgical History History of Jaret fundoplication H/O tubal ligation History of appendectomy History of colonoscopy History of esophagogastroduodenoscopy (EGD) History of tooth extraction Social History Smoking Status: Never smoker Hx Alcohol Use: No Hx Substance Use: No substance use type: does not use Physical Exam Vital Signs Last Vital Signs Temp 36.9 C 02/05/19 12:17 Pulse 76 02/05/19 12:17 Resp 16 02/05/19 12:17 BP 117/76 02/05/19 12:17 Pulse Ox 94 02/05/19 12:17 Testing Laboratory Results 02/04/19 05:25 02/05/19 07:39 PT 10.7 Seconds (9.0-12.0) 02/02/19 06:50 INR 1.0 (0.9-1.1) 02/02/19 06:50
[2019-02-05] MEDS: metroNIDAZOLE 500 MG/100 ML BAG IV SCH (09:26)
[2019-02-05] MEDS: LEVOTHYROXINE SODIUM 12.5 MCG in SYRINGE 0 ML IV SCH (09:27)
[2019-02-05] MEDS: RILUZOLE 50 MG PO SCH ×2 (09:37→21:21)
--- NOTE | 2019-02-05 09:38 | History & Physical Bridge Note ---
Date of Service February 05, 2019 History & Physical Bridge Note I have examined the patient, reviewed the History & Physical and in the interval since the performance of the History & Physical I have noted the following changes of clinical significance: no changes noted Pt w/o acute events overnight. Labs, VS reviewed. She remains NPO. She is scheduled for EGD eval for likely PEJ placement. Exam: - Pleasant, cooperative, non verbal, in NAD - HRR - CTA bilateral lungs - BS hypoactive, G tube w leak around site - No edema on extremities GI will give further recs after EGD is completed. Supervising Physician Co-Signing Physician Notes I performed a history and physical examination of the patient, including specifically on physical exam - soft, nontender abdomen. I have discussed the patient's management with Erika. Please refer to the nurse practitioner's note for the documented findings and plan of care. Will attempt PEJ today.
--- NOTE | 2019-02-05 10:53 | Neurology Consultation ---
Date of Consultation February 05, 2019 Assessment & Plan (1) ALS (amyotrophic lateral sclerosis): ALS presenting with progressive dysarthria and dysphagia which began insidiously about 1 year ago, becoming progressively worse, and more recently associated with muscle fasciculations and pseudobulbar affective disorder. There is no curative treatment for ALS. However, I agree with Riluzole as ordered as this medication provide some improvement in survival. It would be reasonable to consider using an anticholinergic medication to address this patient's silaorrhea. Glycopyrrolate 1 mg taken up to 3 times per day as needed would be a reasonable option. On the other hand, if this patient's mucus is excessively thick, it would be reasonable to consider a mucolytic agent such as acetylcysteine 200 mg taken 3 times per day. I would probably hold off on starting Nuedexta for her mild pseudobulbar affect, at least at this time. I do not have any further specific recommendations for her management at this time. She plans to continue to follow with Dr. Sandoval at [facility] in the multidisciplinary ALS clinic. Please contact me if I may be of further assistance. History of Present Illness Reason for Consultation: ALS, severe dysphagia Requesting Physician: Ramana Rivas MD Attending Physician: Ramana Rivas History of Present Illness The patient is a 68-year-old female with a history of ALS diagnosed about 3 months ago and confirmed at [facility] with Dr. Sandoval. Her symptoms include progressive dysarthria, dysphagia, weakness, muscle fasciculations, and pseudobulbar affective disorder. Her dysarthria and dysphagia have been prominent symptoms and began insidiously probably at least 1 year ago. More recently, she began to develop fasciculations and twitching of the upper limbs, right greater than left. She does have some atrophy of the intrinsic hand muscles as well but continues to have fairly good strength and motor control of the upper and lower extremities and is able to write and utilize her hands for various ADLs. She remains ambulatory as well. Riluzole was started for her ALS this past November per Dr. Sandoval. There has been some concern about excessive oral secretions as well although she has not been prescribed an anticholinergic medicine due to ongoing issues with dehydration. Her pseudobulbar affect has been mild and intermittent and treatment with Nuedexta has been deferred. The patient has been having some ongoing issues with a gastrostomy tube that was placed on January 23 and a surgical revision with placement of the GJ tube is being planned. Allergies Allergy/AdvReac Type Severity Reaction Status Date / Time No Known Drug Allergies Allergy Unknown . Verified 02/01/19 11:51 ciprofloxacin Allergy Irritable Verified 02/04/19 18:57 Home Medications Home Medications Medication Instructions Recorded Confirmed Type aspirin 81 mg tablet,delayed 81 mg PO QAM 12/11/18 02/01/19 History release calcium citrate-vitamin D3 315 1 tab PO TID 12/11/18 02/01/19 History mg-200 unit tablet levothyroxine 25 mcg tablet 25 mcg PO QAM 12/11/18 02/01/19 History meloxicam 15 mg tablet 15 mg PO QAM 12/11/18 02/01/19 History cyclobenzaprine 5 mg tablet 5 mg PO TID PRN #30 tab 12/30/18 02/01/19 History cholecalciferol (vitamin D3) 5,000 unit PO QAM 01/07/19 02/01/19 History [Vitamin D3] multivitamin 1 tab PO QAM 01/07/19 02/01/19 History omeprazole 20 mg PO QAM 01/07/19 02/01/19 History riluzole 50 mg PO BID 01/07/19 02/01/19 History clopidogrel [Plavix] 75 mg PO QPM 01/10/19 02/01/19 History triamcinolone acetonide 0.1 % 1 appln DT TID PRN #5 gm 01/20/19 02/01/19 Rx dental paste ascorbic acid (vitamin C) [Vitamin 500 mg PO QAM 01/21/19 02/01/19 History C] atorvastatin 80 mg PO QAM 01/21/19 02/01/19 History beta carotene 7,500 unit PO QAM 01/21/19 02/01/19 History citalopram 20 mg PO QAM 01/21/19 02/01/19 History coQ10 (ubiquinol) 200 mg PO QAM 01/21/19 02/01/19 History vitamin E 400 unit PO QAM 01/21/19 02/01/19 History hydrocodone-acetaminophen [[place]] 1 - 2 tab PO .every 4-6 hours #15 01/23/19 02/01/19 Rx tab alendronate 70 mg tablet 70 mg PO .COMPLEX #5 tab 01/29/19 02/01/19 Rx metformin ER 500 mg 500 mg PO DAILY tab 02/04/19 02/04/19 History tablet,extended release 24 hr Patient History Medical History History of CVA (cerebrovascular accident) x2; 10/2017, ?01/07/18- on plavix; residual speech impairment, RUE weakness and dysphagia Pulmonary embolism S/P hiatal hernia repair (2016)- no issues since Amyotrophic lateral sclerosis (ALS) recent diagnosis Ankylosing spondylitis Anxiety Diverticulitis hx Dysphagia reason for upcoming procedure GERD (gastroesophageal reflux disease) Gastrostomy tube in place (01/23/19) Laparoscopic Assisted Gastrostomy Tube Placement Dr. Collins 01/23/19 Hypothyroidism Osteoarthritis Osteoporosis Paraesophageal hernia Rectal prolapse Speech impairment r/t ALS and hx CVA Surgical History History of Jaret fundoplication H/O tubal ligation History of appendectomy History of colonoscopy History of esophagogastroduodenoscopy (EGD) History of tooth extraction Family History Father Family history of diabetes mellitus Sister Family history of diabetes mellitus Social History Preferred Language: Guatemalan Communication Ability: Impaired Engine Watchman Required: No Beliefs That Will Affect Care: None Current Living Situation: Spouse Feels Safe at Home: Yes Smoking Status: Never smoker Second Hand Exposure: No ; Hx Alcohol Use: No Hx Substance Use: No Review of Systems Constitutional: no fever and no chills Eyes: no blind spots and no diplopia Ear, Nose, Mouth, Throat: no tinnitus and no hearing loss Respiratory: no cough and no dyspnea Cardiovascular: no chest pain and no palpitations Gastrointestinal: no nausea and no vomiting Genitourinary: no urinary incontinence Musculoskeletal: no myalgia Integumentary: no rash and no lesions Neurologic: as per Subjective / HPI, + abnormal speech and + behavioral changes; no loss of sensation, no paresthesia, no lack of coordination, no abnormal movements, no syncope and no headache(s) Psychiatric: no depression and no anxiety Physical Exam Physical Exam: The patient is a well-developed elderly female. She is alert and fully oriented. Recent and remote memory intact. Attention and concentration normal. Patient exhibits a markedly dysarthric speech pattern. She is able to name objects using a communication board. Speech repetition cannot be assessed due to profound dysarthria. Fund of knowledge and language comprehension normal. Visual glez full to confrontation. Visual acuity normal. Pupils equal round reactive to light and accommodation. Eye movements normal. No ptosis or nystagmus. No ophthalmoplegia. Facial sensation intact. There is normal facial strength and symmetry. Hearing intact. Palate elevates to midline. Shoulder shrug intact. Patient has difficulty with tongue protrusion. There are minimal lingual fasciculations observed. Sensation intact all modalities in all 4 limbs. Deep tendon reflexes are brisk, 3+ for the arms and legs bilaterally. Plantar responses equivocal bilaterally. Ophthalmoscopic examination reveals normal-appearing optic disks and posterior segments. No papilledema or hemorrhages. Carotid pulses normal bilaterally, no bruits to auscultation. Gait and station normal. Patient exhibits normal muscle strength and tone for all 4 limbs proximally and distally. There is some atrophy of the intrinsic hand muscles, especially the first dorsal interossei bilaterally. No abnormal movements observed. Results & Data Vital Signs (Past 12 Hours) Vital Signs Temp Pulse Resp BP Pulse Ox 02/05/19 07:14 36.9 C 76 18 104/74 94 02/05/19 03:35 36.7 C 82 16 105/65 96 02/04/19 23:59 37.0 C 97 H 16 107/71 95 Laboratory Results WBC 8.59, hemoglobin 12.0, hematocrit 35.8, platelet count 254, sodium 141, potassium 3.9, BUN 23, creatinine 0.69, glucose 110, calcium 8.3, magnesium 2.1 Diagnostic Findings Brain MRI completed December 12, 2017 revealed multiple nonspecific foci of increased T2/flair signal within the cerebral white matter, unchanged compared with the previous MRI done in December 2017. Finding most likely consistent with age-related chronic microvascular change. I reviewed the images as well as the radiologist interpretation of this test. There is also a chronic right thalamic lacunar infarct. A cervical spine MRI completed December 18, 2018 reveals mild to moderate degenerative change and associated osteophytes. No significant central canal stenosis or spinal cord abnormality. Electrocardiogram reveals a normal sinus rhythm, 75 bpm An EMG completed at [facility] this past November revealed abnormalities affecting motor neurons, there are axons, or both, most prominent at the cranial and cervical levels, although lumbar levels to a lesser degree.
--- NOTE | 2019-02-05 12:02 | XRay Report ---
XR chest 2V routine CLINICAL HISTORY: dysphagia/ cough dyspnea COMPARISON STUDY: 02/03/2019 FINDINGS: PICC catheter now is positioned in the superior vena cava. No evidence for pneumothorax. Mild emphysematous change is stable. IMPRESSION: PICC catheter placed in the superior vena cava. No evidence for pneumothorax. Lungs fernanda in clear. The above report was generated using voice recognition software. It may contain grammatical, syntax or spelling errors. Electronically signed by: Enmanuel Vargas M.D. 02/05/2019 12:01 PM
[2019-02-05] MEDS ORDERED: GLUCAGON FOR INJ 1 MG VIAL ONE (12:32)
[2019-02-05] MEDS ORDERED: CEFAZOLIN 250 MG/ML 1 GM VIAL ONE (12:37)
[2019-02-05] MEDS ORDERED: LIDOCAINE HCL 2% 2 ML VIAL/AMP(20MG/ML) INFIL ONE ×2 (12:39)
[2019-02-05] MEDS ORDERED: PROPOFOL IV EMULSION 10 MG/ML 20 ML VIAL IV ONE ×4 (12:39→13:42)
[2019-02-05] MEDS: CITALOPRAM 20 MG TAB PO SCH (12:54)
[2019-02-05] MEDS: ASPIRIN 81 MG ECTAB PO SCH (12:54)
[2019-02-05] MEDS: ATORVASTATIN 40 MG TAB PO SCH (12:59)
[2019-02-05] MEDS: ASCORBIC ACID 500 MG TAB PO SCH (13:00)
[2019-02-05] MEDS: MULTIVITAMIN TAB PO SCH (13:00)
[2019-02-05] MEDS: PANTOprazole 40 MG TAB PO SCH (13:00)
[2019-02-05] MEDS: MELOXICAM 7.5 MG TAB PO SCH (13:00)
[2019-02-05] MEDS: CHOLECALCIFEROL 1,000 UNITS TAB PO SCH (13:00)
[2019-02-05] MEDS: TOCOPHERYL, DL-ALPHA 400 UNITS CAP PO SCH (13:00)
[2019-02-05] MEDS ORDERED: PIPERACILL/TAZOBAC CONSULT ACTIVE PRN (13:44)
[2019-02-05] MEDS ORDERED: PIPERACILLIN/TAZOBACTAM 3.375 GM in DEXTROSE 5% 100 ML IV SCH (14:00)
--- NOTE | 2019-02-05 14:22 | GI REPORT ---
Patient Name: Soumya Fuentes Procedure Date: 02/05/2019 12:46 PM Date of : 1950 Admit Type: Inpatient Age: 68 Gender: Female Attending MD: Payal Dougherty MD Procedure: Upper GI endoscopy Providers: Payal Dougherty MD Referring MD: Ramana Rivas M.d., Ashvin Coleman Indications: Place PEG because patient is unable to eat, dysphagia, impaired swallowing, and due to neurological disorder causing impaired swallowing. Remove prior malfunctioning gastrostomy. Medicines: Monitored Anesthesia Care, Ancef 2000 mg IV Complications: No immediate complications. Estimated Blood Loss: Estimated blood loss: none. Procedure: Pre-Anesthesia Assessment: - Prior to the procedure, a History and Physical was performed, and patient medications and allergies were reviewed. The patient is competent. The risks and benefits of the procedure and the sedation options and risks were discussed with the patient. All questions were answered and informed consent was obtained. Patient identification and proposed procedure were verified by the physician and the nurse in the procedure room. Mental Status Examination: alert and oriented. Airway Examination: normal oropharyngeal airway and neck mobility. Respiratory Examination: clear to auscultation. CV Examination: normal. ASA Grade Assessment: III - A patient with severe systemic disease. After reviewing the risks and benefits, the patient was deemed in satisfactory condition to undergo the procedure. The anesthesia plan was to use monitored anesthesia care (MAC). Immediately prior to administration of medications, the patient was re-assessed for adequacy to receive sedatives. The heart rate, respiratory rate, oxygen saturations, blood pressure, adequacy of pulmonary ventilation, and response to care were monitored throughout the procedure. The physical status of the patient was re-assessed after the procedure. After obtaining informed consent, the endoscope was passed under direct vision. Throughout the procedure, the patient's blood pressure, pulse, and oxygen saturations were monitored continuously. The scope was introduced through the mouth, and advanced to the second part of duodenum. The Endoscope was introduced through the and advanced to the. The upper GI endoscopy was accomplished without difficulty. The patient tolerated the procedure well. Findings: The examined esophagus was normal. There was evidence of an eroding gastrostomy tube present in the gastric body. This was characterized by ulceration. The examined duodenum was normal. The examined jejunum was normal. Despite multiple attemps with deep intubation of the jejunum beyond the ligamint of Treitz, I could not find a good transillumination spot to place a PEJ hence I decided to re-examine the stomach to find a spot for a new PEG. The patient was placed in the supine position for PEG placement. The stomach was insufflated to appose gastric and abdominal puckett. A site was located in the body of the stomach with excellent transillumination and manual external pressure for placement which was at least more than 2 cm away from the current malfunctioning gastrostomy. The abdominal wall was marked and prepped in a sterile manner. The trocar needle was introduced through the abdominal wall and into the stomach under direct endoscopic view. A snare was introduced through the endoscope and opened in the gastric lumen. The guide wire was passed through the trocar and into the open snare. The snare was closed around the guide wire. The endoscope and snare were removed, pulling the wire out through the mouth. A skin incision was made at the site of needle insertion. The externally removable 20 Fr Kadeem-Cook gastrostomy tube was lubricated. The G-tube was tied to the guide wire and pulled through the mouth and into the stomach. The trocar needle was removed, and the gastrostomy tube was pulled out from the stomach through the skin. The external bumper was attached to the gastrostomy tube, and the tube was cut to remove the guide wire. The final position of the gastrostomy tube was confirmed by relook endoscopy, and skin marking noted to be 2 cm at the external bumper. The final tension and compression of the abdominal wall by the PEG tube and external bumper were checked and revealed that the bumper was moderately tight and mildly deforming the skin. The feeding tube was capped, and the tube site cleaned and dressed. The current malfunctioning and eroding gastrostomy tube got broken during the procedure hence it was completely removed. There was a large, 2 cm defect in the gastric wall which communicates with the skin, there was no signs of pneumoperitonium during the procedure suggesting the stoma is somwhow mature and no communication with the peritonium. To repair the large defect, I decided to use a loop and clip method. The open endoloop was inserted into the stomach, and attached around the defect using 7 hemostatic clips (MR conditional ) were successfully placed . The tissue edges were approximated and the endoloop was tightened, there were no signs of air leak prior to deployment of the loop. Closure of the defect was successful. There was no bleeding at the end of the procedure. I placed an NG tube for low intermittent suction and the tip was at 45 cm from the naris and located below the GEJ and away from the endoloop. Impression: - Normal esophagus. 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 The tube was removed and the defect was closed using an endoloop and clip method. - Normal examined duodenum. - Normal examined jejunum. Unfortunately, could not find a good transillumination point to place a PEG. - A new externally removable PEG placement was successfully completed in the stomach. - No specimens collected. Recommendation: - Return patient to hospital [facility] for ongoing care. - NPO for 2 days. - Continue NG tube for low intermittent suction. - I will personally do the dressing change for the next 2 days to assure no manipulation of the tube. - Once the current fistula closes, will initiate feeding in few days. Payal Dougherty MD 02/05/2019 2:21:39 PM This report has been signed electronically. Note Initiated On: 02/05/2019 12:46 PM Number of Addenda: 0 I attest to the content of the Intraoperative Record and orders documented therein, exceptions below {[id number]}
[2019-02-05] MEDS ORDERED: MoRPHine SULFATE 2 MG/ML CARP IV PRN (14:34)
[2019-02-05] MEDS: ENOXAPARIN INJ 40 MG/0.4 ML SYR SQ SCH (14:52)
[2019-02-05] MEDS: ONDANSETRON INJ 2 MG/ML 2 ML VIAL IV PRN (15:19)
[2019-02-05] MEDS ORDERED: CUSTOM CENTRAL PN IV SCH (16:00)
--- NOTE | 2019-02-05 16:35 | Anesthesiology Progress Note ---
Date of Service February 05, 2019 Anesthesia Post Procedure Vital Signs Vital Signs: Temp Pulse Pulse Resp BP BP Pulse Ox 02/05/19 15:13 36.4 C L 85 16 139/89 97 02/05/19 14:16 85 20 130/86 93 02/05/19 13:49 99 H 16 111/75 99 02/05/19 12:17 36.9 C 76 16 117/76 94 02/05/19 11:22 36.7 C 93 H 18 116/79 97 02/05/19 08:00 80 02/05/19 07:14 36.9 C 76 18 104/74 94 02/05/19 03:35 36.7 C 82 16 105/65 96 02/04/19 23:59 37.0 C 97 H 16 107/71 95 02/04/19 18:27 36.8 C 98 H 18 112/78 94 Pain Intensity Medial Abdomen: Pain Intensity: 3 Transfer of Care Handoff Completed per policy Notes Mental Status: alert / awake / arousable and participated in evaluation Patient Amnestic to Procedure: Yes Nausea / Vomiting: adequately controlled Pain: adequately controlled Airway Patency, RR, SpO2: stable & adequate BP & HR: stable & adequate Hydration State: stable & adequate Anesthetic Complications: no major complications apparent and Pt Satisfied with anesthetic care
[2019-02-05] MEDS: MENTHOL-ZINC OXIDE 360 APPLN/120 GM TUBE EXT SCH ×2 (17:45→21:21)
[2019-02-05] MEDS: PIPERACILLIN/TAZOBACTAM 3.375 GM in DEXTROSE 5% 100 ML IV SCH (21:20)
[2019-02-05] MEDS: CLOPIDOGREL BISULFATE 75 MG TAB PO SCH (21:21)
[2019-02-05] MEDS: LORazepam 0.25 MG/0.5 ML VIAL IV PRN (21:24)
--- NOTE | 2019-02-05 22:43 | Hospitalist Progress Note ---
Date of Service February 05, 2019 Assessment & Plan (1) Complication of feeding tube: General surgery consulted Dr. Coleman appreciated, recommended , reglan, stoma powder/ paste as needed, low volume TF Obtained second opinion with [facility]. Patient will likely get a different feeding tube. May need old one pulled out. Concern with severe dysphagia. placed on atropine PRN for secretion. Patient may aspirate even when starting fluids. Central line obtained. Patient placed on TPN. Family is in agreement. In regards to her complication of the feeding tube: there appears to be a small abcess. The lesion is however draining and will continue current antibiotic consult social science teacher to give them a feeding pump D/W Dr. Coleman and will order CT scan ABD/Pelvis w O/I contrast to R/O intestinal stricture or obstruction D/W radiologist Dr. morales, options are limited to other imaging modules one suppository bisacodyl x 1 Full code (2) ALS (amyotrophic lateral sclerosis): Patient has a terminal illness with no cure. Majority of patients live 2-5 years past time of diagnosis. I reviewed note by her visit with the ALS specialist in [place]. Patient has multiple complications from this. Her main issue is her weight loss. Given that the G tube is compromised, will at this time use TPN. However this also has risks in itself, including infection. Another issue is the possibility of refeeding syndrome. will need to monitor. She also has a rash likely from her saliva. Currently placing vaseline below her lower lip. will obtain a neuro consult for further input. (3) Ankylosing spondylitis: D/C meloxicam due to GI bleed will start ultram Continue cyclobenzaprine 5 mg p.o. 3 times daily as needed for stiffness (4) Cerebrovascular disease: Continue clopidogrel 75 mg p.o. every afternoon Continue aspirin 81 mg tablets p.o. every morning will need to switch PO meds to IBV. (5) Hypothyroidism: Continue levothyroxine 25 MCG's p.o. every morning will switch to IV. TSH was 1.62 in 11/2018 (6) Impaired fasting glucose: A1c was 5.8 on 04/2018 Diabetic control diet (7) History of CVA (cerebrovascular accident): Continue clopidogrel and atorvastatin aspirin (8) Depression: Continue citalopram 20 mg p.o. every morning Spent 35 minutes in management of patient. Subjective Patient reports more upbeat today. She is excited for her upper endscopy. Review of Systems Review of Systems: Constitutional: No fever / no chills / no sweats / no weakness / no fatigue positive weight loss Eyes: no blurring of vision / no eye pain / no discharge / no redness ENT: no hearing loss / no epistaxis /no swallowing problems Respiratory: no cough / no wheezing / no SOB / no hemoptysis Cardiovascular: no Chest pain / no lower extremity edema / no palpitation Abdomen: no pain / no nausea / no vomiting / small bowel movements\ Musculoskeletal: no joint pain / no muscle pain / no joint swelling Genitourinary: no dysuria / no incontinence / no urinary retention Neurologic: no focal weakness / no numbness/tingling / no ataxia Psychiatric: no depression symptoms / no anxiety / no insomnia Endocrine: no excessive thirst / no excessive urination Hematologic: no abnormal bleeding / no bruising / no LN swelling Skin: No rash / no pallor Physical Exam Physical Exam: General patient appears to be frail elderly female , thin but not cachectic comfortable, not in acute distress HEENT: Atraumatic , normocephalic /no jaundice /no pallor /anicteric /no dry mucous membrane /normal external ear inspection Neck: Supple /no swelling /central trach Heart: S1/S2 normal/regular rate and rhythm/no gallop /no rub /no murmur Lungs: Clear to auscultation bilaterally/normal chest with expansion/no rhonchi/no rales/no wheezing/no use of accessory muscles of respiration Abdomen: Soft/nontender/no guarding/no rebound/ feeding tube has brown thick material leaking around it with bad odor Musculoskeletal: No swelling/no edema/no tenderness/normal range of motion Neuro exam: Awake alert oriented 3/cranial nerves II through XII appear to be intact/sensation intact/moves all extremities/no abnormal movements, has dysarthria Psychiatric evaluation: No depressed mood/normal affect Skin: No rash on exposed skin area/no erythema Extremity: Normal pulse/no pitting edema/no clubbing or cyanosis Results & Data Vital Signs (Past 12 Hours) Vital Signs Temp Pulse Pulse Resp BP BP Pulse Ox 02/05/19 19:22 36.9 C 96 H 19 122/85 97 02/05/19 16:00 77 02/05/19 15:13 36.4 C L 85 16 139/89 97 02/05/19 14:16 85 20 130/86 93 02/05/19 13:49 99 H 16 111/75 99 02/05/19 12:17 36.9 C 76 16 117/76 94 02/05/19 11:22 36.7 C 93 H 18 116/79 97 PG Care Time/CCT Total # of Minutes Spent Total Time Spent with Patient: Total time spent is greater than 50% in coordination of care (as documented) at patient's floor/unit and/or counseling patient:
[2019-02-06] MEDS: PIPERACILLIN/TAZOBACTAM 3.375 GM in DEXTROSE 5% 100 ML IV SCH ×3 (03:41→20:47)
[2019-02-06] MEDS: ONDANSETRON INJ 2 MG/ML 2 ML VIAL IV PRN ×2 (03:42→19:45)
--- NOTE | 2019-02-06 06:09 | Surgery Progress Note ---
Date of Service February 06, 2019 Assessment & Plan (1) Complication of feeding tube: pt comfortable- no acute events new PEG tube placed, prior removed Dressing in place- Dr Dougherty to check later g tube site wound care as needed Results & Data Vital Signs (Past 12 Hours) Vital Signs Temp Pulse Resp BP BP Pulse Ox 02/06/19 03:50 36.8 C 96 H 16 122/74 96 02/05/19 23:11 36.5 C 88 16 98/65 L 95 02/05/19 19:22 36.9 C 96 H 19 122/85 97 PG Care Time/CCT Total # of Minutes Spent Total Time Spent with Patient: Total time spent is greater than 50% in coordination of care (as documented) at patient's floor/unit and/or counseling patient:
[2019-02-06] MEDS: ATROPINE SULFATE 1% OP SOLN 2 ML BTL PO PRN ×3 (06:51→20:53)
[2019-02-06] MEDS ORDERED: PANTOprazole 80 MG in DEXTROSE 5% 100 ML IV SCH (08:45)
--- NOTE | 2019-02-06 09:26 | Gastroenterology Progress Note ---
Date of Service February 06, 2019 Assessment & Plan (1) ALS (amyotrophic lateral sclerosis): (2) Feeding tube dysfunction: Pt s/p EGD on 02/05 - old eroding G tube removed, perforation closed w endoloop, w new PEG tube placed. She did well overnight. PEG tube was checked by Dr. Dougherty today - in place, no signs of drainage noted at old or now PEG site. NGT was DC'd. Old skin abscess area repacked. Please do not use or manipulate PEG for another day. We will recheck it again tomorrow. Keep NPO. Will give Protonix 80mg IV x 1 dose today. Supervising Physician Co-Signing Physician Notes I performed a history and physical examination of the patient, including specifically on physical exam - soft, nontender abdomen. I have discussed the patient's management with Erika. Please refer to the nurse practitioner's note for the documented findings and plan of care. New PEG is intact, no leak and external bumper remains at place. Site of the removed gastrostomy looks good, no leakage and wound seems to start healing. Packing changed. NG tube removed. If she remains to improve and wound is healing will consider trial of feeding tomorrow. Results & Data Vital Signs (Past 12 Hours) Vital Signs Temp Pulse Resp BP BP Pulse Ox 02/06/19 07:28 36.7 C 82 20 104/67 95 02/06/19 03:50 36.8 C 96 H 16 122/74 96 02/05/19 23:11 36.5 C 88 16 98/65 L 95 (1) Feeding tube dysfunction Encounter type: initial encounter Qualified Code(s): T85.598A - Other mechanical complication of other gastrointestinal prosthetic devices, implants and grafts, initial encounter
[2019-02-06] MEDS: LEVOTHYROXINE SODIUM 12.5 MCG in SYRINGE 0 ML IV SCH (10:14)
[2019-02-06] MEDS: ENOXAPARIN INJ 40 MG/0.4 ML SYR SQ SCH (10:15)
[2019-02-06 10:48] LABS: Calcium 8.6 mg/dl (8.5-10.1); Creatinine Clr Calc Pharmacy 55.5 ml/min; Est GFR (African American) 105.6; Est GFR (Non-African American) 91.2; Magnesium 2.1 mg/dl (1.8-2.4); Phosphorus 2.6 mg/dl (2.5-4.9); Potassium 3.1 mmol/L (3.5-5.1)
[2019-02-06] MEDS: MENTHOL-ZINC OXIDE 360 APPLN/120 GM TUBE EXT SCH ×2 (10:58→20:48)
[2019-02-06] MEDS: ASPIRIN 81 MG ECTAB PO SCH (11:00)
[2019-02-06] MEDS: ATORVASTATIN 40 MG TAB PO SCH (11:00)
[2019-02-06] MEDS: CITALOPRAM 20 MG TAB PO SCH (11:00)
[2019-02-06] MEDS: MELOXICAM 7.5 MG TAB PO SCH (11:01)
[2019-02-06] MEDS: RILUZOLE 50 MG PO SCH ×2 (11:01→20:48)
[2019-02-06] MEDS: MULTIVITAMIN TAB PO SCH (11:01)
[2019-02-06] MEDS: CHOLECALCIFEROL 1,000 UNITS TAB PO SCH (11:02)
[2019-02-06] MEDS: TOCOPHERYL, DL-ALPHA 400 UNITS CAP PO SCH (11:02)
[2019-02-06] MEDS: ASCORBIC ACID 500 MG TAB PO SCH (11:02)
[2019-02-06] MEDS: POTASSIUM CHLORIDE / WTR 10 MEQ/100 ML PLCT IV SCH ×2 (12:36→14:11)
[2019-02-06] MEDS: DEXTROSE 10% 1,000 ML IV SCH (15:47)
[2019-02-06] MEDS ORDERED: CUSTOM CENTRAL PN IV SCH (16:00)
[2019-02-06] MEDS: CLOPIDOGREL BISULFATE 75 MG TAB PO SCH (20:49)
[2019-02-06] MEDS: LORazepam 0.25 MG/0.5 ML VIAL IV PRN (20:49)
--- NOTE | 2019-02-06 22:24 | Hospitalist Progress Note ---
Date of Service February 06, 2019 Assessment & Plan (1) Complication of feeding tube: General surgery consulted Dr. Coleman appreciated, recommended , reglan, stoma powder/ paste as needed, low volume TF Patient will get a second opinion with gastro. Patient obtained a second peg tube. Removed old peg tube. 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 The tube was removed and the defect was closed using an endoloop and clip method. For the moment, will hold off using it, NPO for 48 hours. . Concern with severe dysphagia. will place on atropine. Patient may aspirate even when starting fluids. Central line obtained. Patient placed on TPN. Family is in agreement. There is difficulty in obtain a central line. In regards to her complication of the feeding tube: there appears to be a small abcess. The lesion is however draining and will continue current antibiotic consult social services designee to give them a feeding pump D/W Dr. Coleman and will order CT scan ABD/Pelvis w O/I contrast to R/O intestinal stricture or obstruction D/W radiologist Dr. morales, options are limited to other imaging modules one suppository bisacodyl x 1 Full code (2) Severe protein-calorie malnutrition: Patient has lost 25 pounds in past few months. Likely secondary to dysphagia which is severe. Currently has TPN with a PICC line. Patient now appears more energetic. (3) ALS (amyotrophic lateral sclerosis): Patient has a terminal illness with no cure. Majority of patients live 2-5 years past time of diagnosis. I reviewed note by her visit with the ALS specialist in [place]. Patient has multiple complications from this. Her main issue is her weight loss. ON TPN. However this also has risks in itself, including infection. Another issue is the possibility of refeeding syndrome. will need to monitor. (4) Ankylosing spondylitis: D/C meloxicam due to GI bleed will start ultram Continue cyclobenzaprine 5 mg p.o. 3 times daily as needed for stiffness (5) Cerebrovascular disease: Continue clopidogrel 75 mg p.o. every afternoon Continue aspirin 81 mg tablets p.o. every morning will need to switch PO meds to IBV. (6) Hypothyroidism: Continue levothyroxine 12 MCG's IV. every morning switched to IV. TSH was 1.62 in 11/2018 (7) Impaired fasting glucose: A1c was 5.8 on 04/2018 Diabetic control diet (8) History of CVA (cerebrovascular accident): Continue clopidogrel and atorvastatin aspirin (9) Depression: Continue citalopram 20 mg p.o. every morning Spent 35 minutes in management of patient. Subjective Patient reports no new complaints. She feels better each day. Has more energy now that she has been getting calories. Se is playing games with her family. Review of Systems Review of Systems: Constitutional: No fever / no chills / no sweats / no weakness / no fatigue positive weight loss Eyes: no blurring of vision / no eye pain / no discharge / no redness ENT: no hearing loss / no epistaxis /no swallowing problems Respiratory: no cough / no wheezing / no SOB / no hemoptysis Cardiovascular: no Chest pain / no lower extremity edema / no palpitation Abdomen: no pain / no nausea / no vomiting / small bowel movements\ Musculoskeletal: no joint pain / no muscle pain / no joint swelling Genitourinary: no dysuria / no incontinence / no urinary retention Neurologic: no focal weakness / no numbness/tingling / no ataxia Psychiatric: no depression symptoms / no anxiety / no insomnia Endocrine: no excessive thirst / no excessive urination Hematologic: no abnormal bleeding / no bruising / no LN swelling Skin: No rash / no pallor Results & Data Vital Signs (Past 12 Hours) Vital Signs Temp Pulse Pulse Resp BP Pulse Ox 02/06/19 19:54 37 C 100 H 18 118/86 97 02/06/19 17:34 102 H 02/06/19 15:04 37.1 C 87 20 137/72 97 02/06/19 11:09 36.8 C 95 H 16 114/69 96 PG Care Time/CCT Total # of Minutes Spent Total Time Spent with Patient: Total time spent is greater than 50% in coordination of care (as documented) at patient's floor/unit and/or counseling patient:
[2019-02-07] MEDS: PIPERACILLIN/TAZOBACTAM 3.375 GM in DEXTROSE 5% 100 ML IV SCH ×3 (04:44→20:06)
[2019-02-07 06:11] LABS: Creatinine Clr Calc Pharmacy 58.2 ml/min; Est GFR (African American) 106.7; Est GFR (Non-African American) 92.1; Magnesium 2.1 mg/dl (1.8-2.4); Potassium 3.5 mmol/L (3.5-5.1)
--- NOTE | 2019-02-07 08:55 | Gastroenterology Progress Note ---
Date of Service February 07, 2019 Assessment & Plan (1) ALS (amyotrophic lateral sclerosis): (2) Feeding tube dysfunction: (3) PEG (percutaneous endoscopic gastrostomy) status: PEG checked by myself and Dr. Dougherty today. Bile in PEG tubing, rotates well, no drainage, blood, erythema on new site. Old G tube and abscess sites w serosangenous discharge, no leakage. PEG was able to be flushed easily w 120mL of water. No signs of leakage in new PEG site or old G tube & abscess sites when PEG is flushed. PEG may be used today for flushing and meds administration. Please hold off on using tube for feeding for at least another 24hrs. Defer to Surgery team/Wound Care nurse on management on old Gtube/abscess site wounds. Supervising Physician Co-Signing Physician Notes I performed a history and physical examination of the patient, including specifically on physical exam - soft, nontender abdomen. I have discussed the patient's management with Erika. Please refer to the nurse practitioner's note for the documented findings and plan of care. No leakage from old gastrostomy site. New PEG working well. Wound care per surgery. Start slow feeds tomorrow, would avoid bolus feeds for 1-2 weeks. Watch for refeeding syndrome. Recall me if any concerns. Results & Data Vital Signs (Past 12 Hours) Vital Signs Temp Pulse Pulse Resp BP Pulse Ox 02/07/19 07:08 36.7 C 75 16 99/62 L 97 02/07/19 02:38 36.8 C 105 H 19 105/73 97 02/07/19 00:03 36.8 C 100 H 18 101/64 96 02/06/19 23:00 100 H (1) Feeding tube dysfunction Encounter type: initial encounter Qualified Code(s): T85.598A - Other mechanical complication of other gastrointestinal prosthetic devices, implants and grafts, initial encounter
--- NOTE | 2019-02-07 09:32 | Surgery Progress Note ---
Date of Service February 07, 2019 Assessment & Plan (1) Complication of feeding tube: Patient seems stable from new PEG tube placement She has her abdominal wound which the wound care nurses are helping with We will determine whether she follows up with the wound clinic or into our offic e for wound care. Tube feeds will begin when GI decides it is appropriate She can be discharged home from our standpoint when her tube feeds are set up and okay with the medical team Dr. Biju Cisse is covering over the weekend Results & Data Vital Signs (Past 12 Hours) Vital Signs Temp Pulse Pulse Resp BP Pulse Ox 02/07/19 07:08 36.7 C 75 16 99/62 L 97 02/07/19 02:38 36.8 C 105 H 19 105/73 97 02/07/19 00:03 36.8 C 100 H 18 101/64 96 02/06/19 23:00 100 H PG Care Time/CCT Total # of Minutes Spent Total Time Spent with Patient: Total time spent is greater than 50% in coordination of care (as documented) at patient's floor/unit and/or counseling patient:
[2019-02-07] MEDS: ATORVASTATIN 40 MG TAB PO SCH (09:55)
[2019-02-07] MEDS: ASCORBIC ACID 500 MG TAB PO SCH (09:55)
[2019-02-07] MEDS: TOCOPHERYL, DL-ALPHA 400 UNITS CAP PO SCH (09:56)
[2019-02-07] MEDS: CHOLECALCIFEROL 1,000 UNITS TAB PO SCH (09:56)
[2019-02-07] MEDS: MULTIVITAMIN TAB PO SCH (09:56)
[2019-02-07] MEDS: MELOXICAM 7.5 MG TAB PO SCH (09:56)
[2019-02-07] MEDS: RILUZOLE 50 MG PO SCH ×2 (09:57→20:06)
[2019-02-07] MEDS: ENOXAPARIN INJ 40 MG/0.4 ML SYR SQ SCH (09:57)
[2019-02-07] MEDS: ASPIRIN 81 MG ECTAB PO SCH (09:57)
[2019-02-07] MEDS: CITALOPRAM 20 MG TAB PO SCH (09:57)
[2019-02-07] MEDS ORDERED: LIDOCAINE 5% 1 PATCH TD ONE (14:00)
[2019-02-07] MEDS: LEVOTHYROXINE SODIUM 12.5 MCG in SYRINGE 0 ML IV SCH (14:33)
[2019-02-07] MEDS: MENTHOL-ZINC OXIDE 360 APPLN/120 GM TUBE EXT SCH ×2 (14:34→21:03)
[2019-02-07] MEDS ORDERED: CUSTOM CENTRAL PN IV SCH (16:00)
[2019-02-07] MEDS: ATROPINE SULFATE 1% OP SOLN 2 ML BTL PO PRN (17:18)
[2019-02-07] MEDS: CLOPIDOGREL BISULFATE 75 MG TAB PO SCH (20:44)
[2019-02-07] MEDS: LORazepam 0.25 MG/0.5 ML VIAL IV PRN (21:26)
--- NOTE | 2019-02-07 22:55 | Hospitalist Progress Note ---
Date of Service February 07, 2019 Assessment & Plan (1) Complication of feeding tube: General surgery consulted Dr. Coleman appreciated, recommended , reglan, stoma powder/ paste as needed, low volume TF Patient will get a second opinion with gastro. Patient obtained a second peg tube. Removed old peg tube. 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 The tube was removed and the defect was closed using an endoloop and clip method. Will restart tube feedings tomorrow. Concern with severe dysphagia: patient feels like she can swallow and appears was told by Alma Delia prior to hospital stay that she could eat by mouth. However, she has difficutly even managing her saliva. Patient is happy with her atropine. I am concerned that patient may restart eating by mouth once she is discharged. Again, there is also an aspiration risk even with PEG tube feedings. Central line obtained. Patient placed on TPN. Family is in agreement. There is difficulty in obtain a central line. In regards to her complication of the feeding tube: there appears to be a small abcess. The lesion is however draining and will continue current antibiotic consult social media analyst to give them a feeding pump D/W Dr. Coleman and will order CT scan ABD/Pelvis w O/I contrast to R/O intestinal stricture or obstruction D/W radiologist Dr. morales, options are limited to other imaging modules one suppository bisacodyl x 1 Full code (2) Severe protein-calorie malnutrition: Patient has lost 25 pounds in past few months. Likely secondary to dysphagia which is severe. Currently has TPN with a PICC line. Patient now appears more energetic. (3) ALS (amyotrophic lateral sclerosis): Patient has a terminal illness with no cure. Majority of patients live 2-5 years past time of diagnosis. I reviewed note by her visit with the ALS specialist in [place]. Patient has multiple complications from this. Her main issue is her weight loss. ON TPN. However this also has risks in itself, including infection. Another issue is the possibility of refeeding syndrome. will need to monitor. (4) Ankylosing spondylitis: D/C meloxicam due to GI bleed will start ultram Continue cyclobenzaprine 5 mg p.o. 3 times daily as needed for stiffness (5) Cerebrovascular disease: Continue clopidogrel 75 mg p.o. every afternoon Continue aspirin 81 mg tablets p.o. every morning will need to switch PO meds to IBV. (6) Hypothyroidism: Continue levothyroxine 12 MCG's IV. every morning switched to IV. TSH was 1.62 in 11/2018 (7) Impaired fasting glucose: A1c was 5.8 on 04/2018 Diabetic control diet (8) History of CVA (cerebrovascular accident): Continue clopidogrel and atorvastatin aspirin (9) Depression: Continue citalopram 20 mg p.o. every morning Spent 35 minutes in management of patient. Subjective Patient reports no new symptoms. She reports feeling well. She had a few questions that were answered. She also did ask if she can swallow. Review of Systems Review of Systems: Constitutional: No fever / no chills / no sweats / no weakness / no fatigue positive weight loss Eyes: no blurring of vision / no eye pain / no discharge / no redness ENT: no hearing loss / no epistaxis /no swallowing problems Respiratory: no cough / no wheezing / no SOB / no hemoptysis Cardiovascular: no Chest pain / no lower extremity edema / no palpitation Abdomen: no pain / no nausea / no vomiting / small bowel movements\ Musculoskeletal: no joint pain / no muscle pain / no joint swelling Genitourinary: no dysuria / no incontinence / no urinary retention Neurologic: no focal weakness / no numbness/tingling / no ataxia Psychiatric: no depression symptoms / no anxiety / no insomnia Endocrine: no excessive thirst / no excessive urination Hematologic: no abnormal bleeding / no bruising / no LN swelling Skin: No rash / no pallor Physical Exam Physical Exam: General patient appears to be frail elderly female , thin but not cachectic comfortable, not in acute distress HEENT: Atraumatic , normocephalic /no jaundice /no pallor /anicteric /no dry mucous membrane /normal external ear inspection Neck: Supple /no swelling /central trach Heart: S1/S2 normal/regular rate and rhythm/no gallop /no rub /no murmur Lungs: Clear to auscultation bilaterally/normal chest with expansion/no rhonchi/no rales/no wheezing/no use of accessory muscles of respiration Abdomen: Soft/nontender/no guarding/no rebound/ feeding tube has brown thick material leaking around it with bad odor Musculoskeletal: No swelling/no edema/no tenderness/normal range of motion Neuro exam: Awake alert oriented 3/cranial nerves II through XII appear to be intact/sensation intact/moves all extremities/no abnormal movements, has dysarthria Psychiatric evaluation: No depressed mood/normal affect Skin: No rash on exposed skin area/no erythema Extremity: Normal pulse/no pitting edema/no clubbing or cyanosis Results & Data Vital Signs (Past 12 Hours) Vital Signs Temp Pulse Pulse Resp BP Pulse Ox 02/07/19 19:36 36.5 C 78 19 109/75 95 02/07/19 16:00 77 02/07/19 15:45 36.8 C 76 18 101/66 95 02/07/19 11:35 37.2 C 102 H 16 105/69 94 PG Care Time/CCT Total # of Minutes Spent Total Time Spent with Patient: Total time spent is greater than 50% in coordination of care (as documented) at patient's floor/unit and/or counseling patient:
[2019-02-08] MEDS: PIPERACILLIN/TAZOBACTAM 3.375 GM in DEXTROSE 5% 100 ML IV SCH ×3 (03:50→19:49)
[2019-02-08 07:01] LABS: BUN Creatinine Ratio 32.8 (10-20); Calcium 8.6 mg/dl (8.5-10.1); Creatinine Clr Calc Pharmacy 60.2 ml/min; Est GFR (African American) 108.3; Est GFR (Non-African American) 93.5; Magnesium 2.3 mg/dl (1.8-2.4); Potassium 3.6 mmol/L (3.5-5.1)
[2019-02-08 07:03] LABS: Phosphorus 4.2 mg/dl (2.5-4.9)
[2019-02-08] MEDS: DEXTROSE 10% 1,000 ML IV SCH ×2 (08:31→17:37)
[2019-02-08] MEDS: LEVOTHYROXINE SODIUM 12.5 MCG in SYRINGE 0 ML IV SCH (09:21)
[2019-02-08] MEDS: CHOLECALCIFEROL 1,000 UNITS TAB PO SCH (09:25)
[2019-02-08] MEDS: ASCORBIC ACID 500 MG TAB PO SCH (09:25)
[2019-02-08] MEDS: MELOXICAM 7.5 MG TAB PO SCH (09:25)
[2019-02-08] MEDS: ATORVASTATIN 40 MG TAB PO SCH (09:26)
[2019-02-08] MEDS: MULTIVITAMIN TAB PO SCH (09:26)
[2019-02-08] MEDS: CITALOPRAM 20 MG TAB PO SCH (09:26)
[2019-02-08] MEDS: MENTHOL-ZINC OXIDE 360 APPLN/120 GM TUBE EXT SCH ×2 (09:26→19:50)
[2019-02-08] MEDS: LIDOCAINE 5% 1 PATCH TD SCH (09:27)
[2019-02-08] MEDS: ASPIRIN 81 MG ECTAB PO SCH (09:27)
[2019-02-08] MEDS: ENOXAPARIN INJ 40 MG/0.4 ML SYR SQ SCH (09:27)
[2019-02-08] MEDS: RILUZOLE 50 MG PO SCH ×2 (09:29→19:50)
[2019-02-08] MEDS: TOCOPHERYL, DL-ALPHA 400 UNITS CAP PO SCH (09:31)
[2019-02-08] MEDS ORDERED: FIBERSOURCE HN 1.2 CAL 1000 ML BAG GT SCH (14:00)
[2019-02-08] MEDS ORDERED: PEPTAMEN 1.5 CAL 1,000 ML BAG PO SCH (14:00)
[2019-02-08] MEDS ORDERED: CUSTOM CENTRAL PN IV SCH (16:00)
[2019-02-08] MEDS: CLOPIDOGREL BISULFATE 75 MG TAB PO SCH (19:52)
[2019-02-08] MEDS: LORazepam 0.25 MG/0.5 ML VIAL IV PRN (21:08)
--- NOTE | 2019-02-08 22:53 | Hospitalist Progress Note ---
Date of Service February 08, 2019 Assessment & Plan (1) Complication of feeding tube: General surgery consulted Dr. Coleman appreciated, recommended , reglan, stoma powder/ paste as needed, low volume TF Patient will get a second opinion with gastro. Patient obtained a second peg tube. Removed old peg tube. 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 The tube was removed and the defect was closed using an endoloop and clip method. Wound care treating old g tube site. Bandage placed over it. Will restart tube feedings today. Likely will stop TPN on 02/09 will likely remove picc line on 02/10 Concern with severe dysphagia: patient feels like she can swallow and appears was told by [facility] prior to hospital stay that she could eat by mouth. However, she has difficutly even managing her saliva. Patient is happy with her atropine. I am concerned that patient may restart eating by mouth once she is discharged. Again, there is also an aspiration risk even with PEG tube feedings. Family is in agreement. In regards to her complication of the feeding tube: there appears to be a small abcess. The lesion is however draining and will continue current antibiotic. wound care to manage as well. consult social work program coordinator to give them a feeding pump D/W Dr. Coleman and will order CT scan ABD/Pelvis w O/I contrast to R/O intestinal stricture or obstruction D/W radiologist Dr. morales, options are limited to other imaging modules one suppository bisacodyl x 1 Full code (2) Severe protein-calorie malnutrition: Patient has lost 25 pounds in past few months. Likely secondary to dysphagia which is severe. Currently has TPN with a PICC line. Patient now appears more energetic. (3) ALS (amyotrophic lateral sclerosis): Patient has a terminal illness with no cure. Majority of patients live 2-5 years past time of diagnosis. I reviewed note by her visit with the ALS specialist in [place]. Patient has multiple complications from this. Her main issue is her weight loss. ON TPN. will initate peg tube feedings However this also has risks in itself, including infection. Another issue is the possibility of refeeding syndrome. will need to monitor. (4) Ankylosing spondylitis: D/C meloxicam due to GI bleed will start ultram Continue cyclobenzaprine 5 mg p.o. 3 times daily as needed for stiffness (5) Cerebrovascular disease: Continue clopidogrel 75 mg p.o. every afternoon Continue aspirin 81 mg tablets p.o. every morning will need to switch PO meds to IBV. (6) Hypothyroidism: Continue levothyroxine 12 MCG's IV. every morning switched to IV. TSH was 1.62 in 11/2018 (7) Impaired fasting glucose: A1c was 5.8 on 04/2018 Diabetic control diet (8) History of CVA (cerebrovascular accident): Continue clopidogrel and atorvastatin aspirin (9) Depression: Continue citalopram 20 mg p.o. every morning Spent 35 minutes in management of patient. Subjective Patient appears to be doing well. She has no new complaints. She is awaiting her peg tube feeding. She has no new questions today. Her family is updated. Review of Systems Review of Systems: All systems reviewed & are unremarkable except as noted in HPI & below Physical Exam Physical Exam: General patient appears to be frail elderly female , thin but not cachectic comfortable, not in acute distress HEENT: Atraumatic , normocephalic /no jaundice /no pallor /anicteric /no dry mucous membrane /normal external ear inspection Neck: Supple /no swelling /central trach Heart: S1/S2 normal/regular rate and rhythm/no gallop /no rub /no murmur Lungs: Clear to auscultation bilaterally/normal chest with expansion/no rhonchi/no rales/no wheezing/no use of accessory muscles of respiration Abdomen: Soft/nontender/no guarding/no rebound/ new peg tube placed. open lesion from old g tube site leaking malcolm yellow fluid on bandaid. Musculoskeletal: No swelling/no edema/no tenderness/normal range of motion Neuro exam: Awake alert oriented 3/cranial nerves II through XII appear to be intact/sensation intact/moves all extremities/no abnormal movements, has dysarthria Psychiatric evaluation: No depressed mood/normal affect Skin: No rash on exposed skin area/no erythema Extremity: Normal pulse/no pitting edema/no clubbing or cyanosis Results & Data Vital Signs (Past 12 Hours) Vital Signs Temp Pulse Pulse Resp BP Pulse Ox 02/08/19 19:26 36.5 C 67 22 112/72 95 02/08/19 16:00 72 02/08/19 15:56 36.7 C 65 16 117/65 97 02/08/19 12:00 36.9 C 77 17 115/72 96 PG Care Time/CCT Total # of Minutes Spent Total Time Spent with Patient: Total time spent is greater than 50% in coordination of care (as documented) at patient's floor/unit and/or counseling patient:
[2019-02-09] MEDS: PIPERACILLIN/TAZOBACTAM 3.375 GM in DEXTROSE 5% 100 ML IV SCH ×3 (03:58→20:01)
[2019-02-09 06:40] LABS: BUN Creatinine Ratio 33.8 (10-20); Calcium 8.3 mg/dl (8.5-10.1); Est GFR (African American) 108.3; Est GFR (Non-African American) 93.5; Magnesium 2.1 mg/dl (1.8-2.4); Potassium 3.4 mmol/L (3.5-5.1)
[2019-02-09 07:04] LABS: Phosphorus 3.6 mg/dl (2.5-4.9)
[2019-02-09] MEDS: MENTHOL-ZINC OXIDE 360 APPLN/120 GM TUBE EXT SCH ×2 (08:15→20:24)
[2019-02-09] MEDS: RILUZOLE 50 MG PO SCH ×2 (08:16→20:05)
[2019-02-09] MEDS: MELOXICAM 7.5 MG TAB PO SCH (08:16)
[2019-02-09] MEDS: TOCOPHERYL, DL-ALPHA 400 UNITS CAP PO SCH (08:16)
[2019-02-09] MEDS: MULTIVITAMIN TAB PO SCH (08:16)
[2019-02-09] MEDS: ATORVASTATIN 40 MG TAB PO SCH (08:16)
[2019-02-09] MEDS: CITALOPRAM 20 MG TAB PO SCH (08:16)
[2019-02-09] MEDS: ASPIRIN 81 MG ECTAB PO SCH (08:16)
[2019-02-09] MEDS: LIDOCAINE 5% 1 PATCH TD SCH (08:17)
[2019-02-09] MEDS: ENOXAPARIN INJ 40 MG/0.4 ML SYR SQ SCH (08:17)
[2019-02-09] MEDS: CHOLECALCIFEROL 1,000 UNITS TAB PO SCH (08:19)
[2019-02-09] MEDS: ASCORBIC ACID 500 MG TAB PO SCH (08:20)
[2019-02-09] MEDS: LEVOTHYROXINE SODIUM 12.5 MCG in SYRINGE 0 ML IV SCH (10:15)
[2019-02-09] MEDS ORDERED: CUSTOM CENTRAL PN IV SCH (16:00)
[2019-02-09] MEDS: DEXTROSE 10% 1,000 ML IV SCH (16:21)
[2019-02-09] MEDS: CLOPIDOGREL BISULFATE 75 MG TAB PO SCH (20:07)
[2019-02-09] MEDS: LORazepam 0.25 MG/0.5 ML VIAL IV PRN (21:13)
--- NOTE | 2019-02-09 23:04 | Hospitalist Progress Note ---
Date of Service February 09, 2019 Assessment & Plan (1) Complication of feeding tube: General surgery consulted Dr. Coleman appreciated, recommended , reglan, stoma powder/ paste as needed, low volume TF Patient will get a second opinion with gastro. Patient obtained a second peg tube. Removed old peg tube. 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 The tube was removed and the defect was closed using an endoloop and clip method. Wound care treating old g tube site. Bandage placed over it. Tolerating tube feedings Likely will stop TPN on 02/10 will likely remove picc line on 02/10 Concern with severe dysphagia: patient feels like she can swallow and appears was told by [place] prior to hospital stay that she could eat by mouth. However, she has difficutly even managing her saliva. Patient is happy with her atropine. I am concerned that patient may restart eating by mouth once she is discharged. Again, there is also an aspiration risk even with PEG tube feedings. Family is in agreement. In regards to her complication of the feeding tube: there appears to be a small abcess. The lesion is however draining and will continue current antibiotic. wound care to manage as well. consult social science analyst to give them a feeding pump D/W Dr. Coleman and will order CT scan ABD/Pelvis w O/I contrast to R/O intestinal stricture or obstruction D/W radiologist Dr. morales, options are limited to other imaging modules one suppository bisacodyl x 1 Full code (2) Severe protein-calorie malnutrition: Patient has lost 25 pounds in past few months. Likely secondary to dysphagia which is severe. Currently has TPN with a PICC line. Patient now appears more energetic. (3) ALS (amyotrophic lateral sclerosis): Patient has a terminal illness with no cure. Majority of patients live 2-5 years past time of diagnosis. I reviewed note by her visit with the ALS specialist in [place]. Patient has multiple complications from this. Her main issue is her weight loss. ON TPN. will initiate peg tube feedings However this also has risks in itself, including infection. Another issue is the possibility of refeeding syndrome. will need to monitor. (4) Ankylosing spondylitis: D/C meloxicam due to GI bleed will start ultram Continue cyclobenzaprine 5 mg p.o. 3 times daily as needed for stiffness (5) Cerebrovascular disease: Continue clopidogrel 75 mg p.o. every afternoon Continue aspirin 81 mg tablets p.o. every morning (6) Hypothyroidism: Continue levothyroxine 12 MCG's IV. every morning switched to IV. TSH was 1.62 in 11/2018 (7) Impaired fasting glucose: A1c was 5.8 on 04/2018 Diabetic control diet (8) History of CVA (cerebrovascular accident): Continue clopidogrel and atorvastatin aspirin (9) Depression: Continue citalopram 20 mg p.o. every morning Spent 35 minutes in management of patient. Disposition: Formula for Peg tube. Script already written for kangaroo feeder case management working on this. Patient needs TPN and PICC line removed. Anticipate discharge either on 02/10 or 02/11 (more likely) will continue antibiotics for 72 more hours.'needs wound care followup. Subjective Patient has no new concerns today. Review of Systems Review of Systems: All systems reviewed & are unremarkable except as noted in HPI & below Physical Exam Physical Exam: General patient appears to be frail elderly female , thin but not cachectic comfortable, not in acute distress HEENT: Atraumatic , normocephalic /no jaundice /no pallor /anicteric /no dry mucous membrane /normal external ear inspection Neck: Supple /no swelling /central trach Heart: S1/S2 normal/regular rate and rhythm/no gallop /no rub /no murmur Lungs: Clear to auscultation bilaterally/normal chest with expansion/no rhonchi/no rales/no wheezing/no use of accessory muscles of respiration Abdomen: Soft/nontender/no guarding/no rebound/ new peg tube placed. open lesion from old g tube site with dry bandaid Musculoskeletal: No swelling/no edema/no tenderness/normal range of motion Neuro exam: Awake alert oriented 3/cranial nerves II through XII appear to be intact/sensation intact/moves all extremities/no abnormal movements, has dysarthria Psychiatric evaluation: No depressed mood/normal affect Skin: No rash on exposed skin area/no erythema Extremity: Normal pulse/no pitting edema/no clubbing or cyanosis Results & Data Vital Signs (Past 12 Hours) Vital Signs Temp Pulse Pulse Resp BP Pulse Ox 02/09/19 18:54 36.8 C 77 16 129/83 97 02/09/19 16:00 75 02/09/19 15:05 36.6 C 81 18 103/64 94 02/09/19 12:00 36.8 C 76 16 106/67 96 PG Care Time/CCT Total # of Minutes Spent Total Time Spent with Patient: Total time spent is greater than 50% in coordination of care (as documented) at patient's floor/unit and/or counseling patient:
[2019-02-10] MEDS: ZOLPIDEM TARTRATE 5 MG TAB PO PRN (00:28)
[2019-02-10] MEDS: PIPERACILLIN/TAZOBACTAM 3.375 GM in DEXTROSE 5% 100 ML IV SCH ×3 (04:41→20:30)
[2019-02-10 06:20] LABS: Creatinine Clr Calc Pharmacy 64.7 ml/min; Est GFR (African American) 109.5; Est GFR (Non-African American) 94.5
--- NOTE | 2019-02-10 06:36 | Surgery Progress Note ---
Date of Service February 10, 2019 Assessment & Plan (1) Complication of feeding tube: cont wound care as ordered- will check later with wound nurses likely d/c Tpn soon if tolerating TFs- plan per GI/ medical team can f/u in office with Dr Collins Results & Data Vital Signs (Past 12 Hours) Vital Signs Temp Pulse Resp BP Pulse Ox 02/10/19 00:04 36.5 C 83 16 107/66 98 02/09/19 18:54 36.8 C 77 16 129/83 97 PG Care Time/CCT Total # of Minutes Spent Total Time Spent with Patient: Total time spent is greater than 50% in coordination of care (as documented) at patient's floor/unit and/or counseling patient:
[2019-02-10] MEDS ORDERED: Nursing to Pharmacy Communication ONE (09:31)
[2019-02-10] MEDS: ATORVASTATIN 40 MG TAB PO SCH (09:36)
[2019-02-10] MEDS: MENTHOL-ZINC OXIDE 360 APPLN/120 GM TUBE EXT SCH ×2 (09:53→20:30)
[2019-02-10] MEDS: CHOLECALCIFEROL 1,000 UNITS TAB PO SCH (10:01)
[2019-02-10] MEDS: ASPIRIN 81 MG CHEW PEG SCH (10:01)
[2019-02-10] MEDS: RILUZOLE 50 MG PO SCH ×2 (10:02→20:31)
[2019-02-10] MEDS: CITALOPRAM 20 MG TAB PO SCH (10:02)
[2019-02-10] MEDS: ENOXAPARIN INJ 40 MG/0.4 ML SYR SQ SCH (10:03)
[2019-02-10] MEDS: ASCORBIC ACID 500 MG TAB PO SCH (10:04)
[2019-02-10] MEDS: MELOXICAM 7.5 MG TAB PO SCH (10:04)
[2019-02-10] MEDS: MULTIVITAMIN TAB PO SCH (10:04)
[2019-02-10] MEDS: TOCOPHERYL, DL-ALPHA 400 UNITS CAP PO SCH (10:05)
[2019-02-10] MEDS: LEVOTHYROXINE SODIUM 12.5 MCG in SYRINGE 0 ML IV SCH (10:05)
[2019-02-10] MEDS: LIDOCAINE 5% 1 PATCH TD SCH ×2 (10:06→10:07)
--- NOTE | 2019-02-10 11:28 | Gastroenterology Progress Note ---
Date of Service February 10, 2019 Assessment & Plan (1) ALS (amyotrophic lateral sclerosis): (2) Feeding tube dysfunction: Pt s/p EGD on 02/05 - old eroding G tube removed, perforation closed w endoloop, w new PEG tube placed. She was started on tube feeds via new PEG over the weekend, last night rate increased to 45ml/hr which was her goal. Overnight nurse report tube feeds leaking from old Gtube site. Unsure if it's before or after tube feed rate was increased On my exam today, PEG site CDI. Old Gtube and abscess wounds had been packed earlier this AM by RN with [employer]. I didn't see any discharge or leaks at either G tube, abscess or new PEG insertion site when I flushed PEG with 30mL of water. I reviewed case with my attending physician, Dr. Stacey Longoria. There may be a leak in the old Gtube/abscess site and unfortunately there may not be anything else further we can offer to repair it internally via endoscopy at this time. Would recommend surgical repair and possible transfer to tertiary care center (pt prefers [facility]). Currently I have held tube feedings. Pt has TPN. I will discuss the above with Dr. Coleman (Surgery). (3) PEG (percutaneous endoscopic gastrostomy) status: Supervising Physician Co-Signing Physician Notes I saw and evaluated the patient. There is a complaint of some persistent drainage from her initial PEG tube site. Recommendations CT of the abdomen to reevaluate for abscess formation We will consider postpyloric feeding with placement of a feeding tube through the PEG tube site Results & Data Vital Signs (Past 12 Hours) Vital Signs Temp Pulse Resp BP Pulse Ox 02/10/19 07:39 36.5 C 91 H 16 92/55 L 94 02/10/19 00:04 36.5 C 83 16 107/66 98 (1) Feeding tube dysfunction Encounter type: initial encounter Qualified Code(s): T85.598A - Other mechanical complication of other gastrointestinal prosthetic devices, implants and grafts, initial encounter
[2019-02-10 12:17] LABS: BUN Creatinine Ratio 30.2 (10-20); Calcium 8.4 mg/dl (8.5-10.1); Creatinine Clr Calc Pharmacy 61.1 ml/min; Est GFR (African American) 109.5; Est GFR (Non-African American) 94.5; Magnesium 2.2 mg/dl (1.8-2.4); Phosphorus 3.1 mg/dl (2.5-4.9); Potassium 3.9 mmol/L (3.5-5.1)
[2019-02-10] MEDS ORDERED: IOVERSOL 100ml IV PRN (14:57)
--- NOTE | 2019-02-10 15:13 | CT Scan Report ---
CT OF THE ABDOMEN AND PELVIS WITH CONTRAST CLINICAL HISTORY: Reevaluate abdominal wound/abscess area, leaking. COMPARISON STUDY: CT of the abdomen and pelvis February 03, 2019. TECHNIQUE: Following IV administration of 94 mL of Optiray-320, axial images of the abdomen and pelvi s were obtained from the lung bases to the proximal femurs. Images were reviewed in the axial, sagitt al, and coronal planes. IV contrast was administered without complication. Automated exposure contro l was utilized for the study. A dose lowering technique was utilized adhering to the principles of A JO-ANN. CT DOSE: 244.30 mGy.cm FINDINGS: Lung bases are unremarkable. A small hiatal hernia is noted. Subcentimeter right hepatic lo be lesion favors a cyst. The spleen, adrenal glands and pancreas are unremarkable. There are bilatera l parapelvic cysts. There is no biliary or pancreatic ductal dilatation. Surgical clips along the sto mach are noted. Interval repositioning of the gastrostomy tube is noted. The tube is appropriately po sitioned. Radiodense material within the stomach at previous G-tube site is noted. No significant flu id is noted within the old G-tube site which extends to the skin. However, there is a tiny 1.2 cm poc ket of fluid and gas within the subcutaneous tissues inferior to the new G site at the site of fluid collection shown on CT of February 03, 2019. This collection has decreased in size. No additional flu id collections are present. There is no evidence for a bowel obstruction. There is colonic diverticul osis without evidence for acute diverticulitis. No suspicious osseous lesions are noted. IMPRESSION: 1. Interval placement of a new gastrostomy tube which is appropriately positioned. Decrease in size o f a tiny 1.4 cm fluid and gas containing collection within the subcutaneous tissues inferior to the n ew gastrostomy site since CT of February 13, 2019. Interval decrease in adjacent inflammation. No ad ditional fluid collections. 2. No bowel obstruction. 3. Colonic diverticulosis without evidence for acute diverticulitis. Electronically signed by: Shaheen Crocker M.D. 02/10/2019 3:12 PM
[2019-02-10] MEDS ORDERED: CUSTOM CENTRAL PN IV SCH (16:00)
--- NOTE | 2019-02-10 16:15 | Surgery Progress Note ---
Date of Service February 10, 2019 Assessment & Plan (1) Complication of feeding tube: Pt had CT scan today which shows improvement in the subcutaneous area of the old G-tube site There does not appear to be any gas or significant fluid in this area minimal inflammation I have discussed her situation with the GI team-for now we have held her tube feed and continued Her on TPN via her PICC line. I have discussed with the family if it appears this is not going to heal I would not plan on trying to operate on her here but transfer her to [facility] most likely. Currently we not finalized plan with the GI team. She appears to be much improved from last week Results & Data Vital Signs (Past 12 Hours) Vital Signs Temp Pulse Resp BP Pulse Ox 02/10/19 15:34 36.6 C 84 16 100/69 95 02/10/19 07:39 36.5 C 91 H 16 92/55 L 94 PG Care Time/CCT Total # of Minutes Spent Total Time Spent with Patient: Total time spent is greater than 50% in coordination of care (as documented) at patient's floor/unit and/or counseling patient:
[2019-02-10] MEDS: DEXTROSE 10% 1,000 ML IV SCH (16:26)
--- NOTE | 2019-02-10 16:31 | Hospitalist Progress Note ---
Date of Service February 10, 2019 Assessment & Plan (1) Complication of feeding tube: Ms. Fuentes was admitted on 02/06 due to disfunction of her feeding tube Initial CT showed: lateral to the gastrostomy tube to the left of midline, there is a small fluid collection containing air bubbles measuring 13 mm. This could represent an abscess. Pt s/p EGD on 02/05 - old eroding G tube removed, perforation closed w endoloop, w new PEG tube placed. Patient has been having some continued leaking around the site. Tube feeds were placed on hold by GI 02/10. Parenteral nutrition to be continued via PICC CT 02/10 - Decrease in size of a tiny 1.4 cm fluid and gas containing collection within the subcutaneous tissues inferior to the new gastrostomy site since CT of February 13, 2019. Interval decrease in adjacent inflammation. No additional fluid collections. Continue IV Zosyn Discussed with Dr. Coleman - Surgery and GI may recommend tertiary care for further surgical intervention depending on how she is doing tomorrow (2) ALS (amyotrophic lateral sclerosis): Patient has a terminal illness with no cure. Majority of patients live 2-5 years past time of diagnosis. Resume Rilazole per neurology recommendation Patient is treated by ALS clinic at [place] (3) Dysphagia: Concern with severe dysphagia: patient feels like she can swallow and appears was told by [place] prior to hospital stay that she could eat by mouth. Neurology consulted 02/05 for ALS/dysphagia recommendations Continue prn atropine for secretions (4) Severe protein-calorie malnutrition: Patient has lost 25 pounds in past few months. Likely secondary to dysphagia which is severe. Continue TPN with PICC line, tube feeds on hold (5) Ankylosing spondylitis: D/C meloxicam due to GI bleed Continue tramadol ntinue cyclobenzaprine 5 mg p.o. 3 times daily as needed for stiffness (6) Cerebrovascular disease: Continue clopidogrel 75 mg p.o. every afternoon Continue aspirin 81 mg tablets p.o. every morning (7) Hypothyroidism: Continue IV levothyroxine (8) Impaired fasting glucose: A1c was 5.8 on 04/2018 Diabetic control diet (9) History of CVA (cerebrovascular accident): Continue clopidogrel and atorvastatin aspirin (10) Depression: Continue citalopram 20 mg p.o. every morning (11) DVT prophylaxis: ambulating Dispo: may need to transfer to tertiary care depending on progress of healing at feeding tube site Subjective Ms. Runkle walking around the room easily. Communicates with [employer] board. Sister is at bedside. No complaints. Review of Systems Review of Systems: All systems reviewed & are unremarkable except as noted in HPI & below Physical Exam Physical Exam: General: no distress Eyes: normal inspection, PERLL Respiratory: chest non tender, clear to auscultation, normal breath sounds, no respiratory distress, no accessory muscle use Cardiac: regular rate and rhythm, no rub or gallop, no murmur, no edema, no jvd GI/: active bowel sounds, no abd pain or tenderness, soft, non distended Extremities: normal range of motion, normal strength, non tender Neuro/Psych: alert and oriented x 3, normal mood and affect Skin: normal color, dry Results & Data Vital Signs (Past 12 Hours) Vital Signs Temp Pulse Resp BP Pulse Ox 02/10/19 15:34 36.6 C 84 16 100/69 95 02/10/19 07:39 36.5 C 91 H 16 92/55 L 94 PG Care Time/CCT Total # of Minutes Spent Total Time Spent with Patient: Total time spent is greater than 50% in coordination of care (as documented) at patient's floor/unit and/or counseling patient:
[2019-02-10] MEDS ORDERED: ATORVASTATIN 40 MG TAB PO SCH (21:00)
[2019-02-10] MEDS: LORazepam 0.25 MG/0.5 ML VIAL IV PRN (21:26)
[2019-02-11] MEDS: LIDOCAINE 5% 1 PATCH TD SCH ×2 (02:20→11:45)
[2019-02-11] MEDS: PIPERACILLIN/TAZOBACTAM 3.375 GM in DEXTROSE 5% 100 ML IV SCH ×3 (04:14→20:21)
[2019-02-11 06:30] LABS: Basophils # (auto) 0.02 K/uL (0-0.2); Basophils % (auto) 0.4 %; Eosinophils # (auto) 0.22 K/uL (0-0.5); Eosinophils % (auto) 3.9 %; Hematocrit (blood only) 33.9 % (37-47); Hemoglobin 10.9 g/dL (12.0-16.0); Immature Granulocytes # (auto) 0.02 K/uL (0.00-0.02); Immature Granulocytes % (auto) 0.4 %; Lymphocytes # (auto) 1.54 K/uL (1.2-3.4); Lymphocytes % (auto) 27.5 %; Mean Corpuscular Hemoglobin 31.1 pg (25-34); Mean Corpuscular Hgb Conc 32.2 g/dL (32-36); Mean Corpuscular Volume 96.9 fL (80-100); Mean Platelet Volume 10.3 fL (7.4-10.4); Monocytes # (auto) 0.52 K/uL (0.11-0.59); Monocytes % (auto) 9.3 %; Neutrophils # (auto) 3.27 K/uL (1.4-6.5); Neutrophils % (auto) 58.5 %; Platelet Count 251 K/uL (130-400); RDW Coefficient of Variation 14.1 % (11.5-14.5); RDW Standard Deviation 49.9 fL (36.4-46.3); White Blood Count 5.59 K/uL (4.8-10.8)
--- NOTE | 2019-02-11 06:35 | Surgery Progress Note ---
Date of Service February 11, 2019 Assessment & Plan (1) Complication of feeding tube: vitals stable, on Tpn via picc, TFs on hold min to no significant drainage from old G tube site improved w/ TFs off GI team considering more distal tube via PEG I also called GI in [place] to discuss case if transfer necessary at some point- they did not feel they would chg mgt at this point- cont Tpn, try more distal feeding May need home Tpn Results & Data Vital Signs (Past 12 Hours) Vital Signs Temp Pulse Resp BP Pulse Ox 02/10/19 22:21 36.7 C 79 16 114/76 96 PG Care Time/CCT Total # of Minutes Spent Total Time Spent with Patient: Total time spent is greater than 50% in coordination of care (as documented) at patient's floor/unit and/or counseling patient:
[2019-02-11 06:55] LABS: Albumin Level 2.9 gm/dl (3.4-5.0); BUN Creatinine Ratio 27.1 (10-20); Calcium 8.7 mg/dl (8.5-10.1); Creatinine Clr Calc Pharmacy 62.3 ml/min; Est GFR (African American) 110.1; Magnesium 2.2 mg/dl (1.8-2.4); Potassium 3.9 mmol/L (3.5-5.1)
[2019-02-11 06:58] LABS: Albumin Globulin Ratio 0.9 (0.9-2); Bilirubin,Total 0.5 mg/dl (0.2-1); Globulin 3.3 gm/dl (2.5-4.0); Phosphorus 3.5 mg/dl (2.5-4.9); Total Protein 6.2 gm/dl (6.4-8.2)
[2019-02-11] MEDS: MENTHOL-ZINC OXIDE 360 APPLN/120 GM TUBE EXT SCH ×2 (07:35→20:28)
[2019-02-11] MEDS: RILUZOLE 50 MG PO SCH ×2 (07:44→09:01)
[2019-02-11] MEDS: LEVOTHYROXINE SODIUM 12.5 MCG in SYRINGE 0 ML IV SCH (09:07)
[2019-02-11] MEDS: ENOXAPARIN INJ 40 MG/0.4 ML SYR SQ SCH (09:10)
--- NOTE | 2019-02-11 13:01 | Gastroenterology Progress Note ---
Date of Service February 11, 2019 Assessment & Plan (1) ALS (amyotrophic lateral sclerosis): (2) Feeding tube dysfunction: Pt s/p EGD on 02/05 - old eroding G tube removed, perforation closed w endoloop, w new PEG tube placed. She was started on tube feeds via new PEG over the weekend, last night rate increased to 45ml/hr which was her goal. Overnight nurse report tube feeds leaking from old Gtube site. CT abd/pelvis yesterday showed decreased fluid and gas collection within subQ tissue inferior to new gastrostomy tube. No bowel obstruction or additional fluid collection. Pt states she feels great w/o abd pain, n/v. Abdominal wound site w dried blood noted today. TF had been held, she's on TPN. UGI series w gastrograffin obtained - no signs of fistula tract, + outpouching of contrast in anterior gastric area from previous Gtube site but no extension of contrast to skin. No further GI intervention at this time. Would recommend further management of abdominal wound per Surgery/Wound Care teams. (3) PEG (percutaneous endoscopic gastrostomy) status: Supervising Physician Co-Signing Physician Notes I saw and evaluated the patient. She underwent a Gastrografin study this afternoon which showed no obvious leak into the peritoneal cavity. Recommendations Agree with use of TPN for 1 to 2 weeks Patient to follow with general surgery as an outpatient Should leakage continue from the initial PEG tube site I would suggest evaluation at a tertiary center given the complexity of her case. Please call with any additional questions or concerns Subjective Pt denies any abd pain, n/v, feel "great". She does notice slight drainage through her abd wall wound. Denies pain at that site. TF has been held, she is currently on TPN Review of Systems Review of Systems: All systems reviewed & are unremarkable except as noted in HPI & below Physical Exam Constitutional: WD/WN, vitals as above well groomed, cooperative and comfortable Eyes: PERRL, conjunctivae normal, anicteric sclerae Respiratory: normal respiratory effort; no respiratory distress and does not use accessory muscles Gastrointestinal (Abdomen): Mid upper abd area with PEG in place, CDI. Abdominal wound w dried blood. No manipulation of wound is done. Skin: no rashes, warm and dry no jaundice Neurologic: has ALS, no verbal; communicates by writing on board Lymphatic: no lymphedema Results & Data Vital Signs (Past 12 Hours) Vital Signs Temp Pulse Resp BP Pulse Ox 02/11/19 07:17 36.7 C 92 H 18 101/56 L 96 (1) Feeding tube dysfunction Encounter type: initial encounter Qualified Code(s): T85.598A - Other mechanical complication of other gastrointestinal prosthetic devices, implants and grafts, initial encounter
--- NOTE | 2019-02-11 13:50 | Fluoroscopy Report ---
UPPER GI SERIES UTILIZING OPTIRAY CLINICAL HISTORY: Check for wound leak. COMPARISON STUDY: CT of the abdomen and pelvis February 10, 2019. FLUOROSCOPY TIME: 2.1 minutes. FLUOROSCOPIC IMAGES: 18. FINDINGS: Initially, drag seiner KUB was obtained. This demonstrated a gastrostomy tube as well as endoscop ic metallic densities from previous G-tube site. An upper GI series was then performed as 100 cc of O ptiray 300 was injected through the patient's gastrostomy tube. The new gastrostomy tube is appropria tely positioned with filling of the stomach. No contrast extravasation was noted upon initial injecti on. Gastric distention was excellent. Lateral projection demonstrates a small outpouching of contrast arising from the anterior aspect of the gastric antrum, likely a previous G-tube site. However, no c ommunication to the skin was noted on this examination despite prolonged imaging. Postoperative findi ngs of the stomach were noted with possible hiatal hernia and Jaret fundoplication. Caliber of the o pacified jejunum was normal. IMPRESSION: Interval placement of a gastrostomy tube which is appropriately positioned. Small outpouc carla of contrast arising from the anterior aspect of the gastric antrum, likely at previous gastrosto my site. However, no extension of contrast to the skin to suggest patent fistula at this time. Otherw ise, normal exam. Electronically signed by: Shaheen Crocker M.D. 02/11/2019 1:48 PM
--- NOTE | 2019-02-11 14:50 | Surgery Progress Note ---
Date of Service February 11, 2019 Assessment & Plan (1) PEG (percutaneous endoscopic gastrostomy) status: Gastro graffin inj did not show leak to skin- small outpouching at old Gtube site and minimal drainage from old site. We do not feel she should have tube feeds yet. I discussed case with [facility]- does not require acute transfer will plan d/c home on Tpn to allow additional healing- f/u [facility] to assess PEg tube and review history. Wound care can continue at wound clinic Results & Data Vital Signs (Past 12 Hours) Vital Signs Temp Pulse Resp BP Pulse Ox 02/11/19 07:17 36.7 C 92 H 18 101/56 L 96 PG Care Time/CCT Total # of Minutes Spent Total Time Spent with Patient: Total time spent is greater than 50% in coordination of care (as documented) at patient's floor/unit and/or counseling patient:
[2019-02-11] MEDS ORDERED: CUSTOM CENTRAL PN IV SCH (16:00)
[2019-02-11] MEDS: DEXTROSE 10% 1,000 ML IV SCH (16:38)
--- NOTE | 2019-02-11 18:41 | Hospitalist Progress Note ---
Date of Service February 11, 2019 Assessment & Plan (1) Complication of feeding tube: Ms. Fuentes was admitted on 02/06 due to disfunction of her feeding tube Initial CT showed: lateral to the gastrostomy tube to the left of midline, there is a small fluid collection containing air bubbles measuring 13 mm. This could represent an abscess. Pt s/p EGD on 02/05 - old eroding G tube removed, perforation closed w endoloop, w new PEG tube placed. Patient has been having some continued leaking around the site. Tube feeds were placed on hold by GI 02/10. Parenteral nutrition to be continued via PICC CT 02/10 - Decrease in size of a tiny 1.4 cm fluid and gas containing collection within the subcutaneous tissues inferior to the new gastrostomy site since CT of February 13, 2019. Interval decrease in adjacent inflammation. No additional fluid collections. Continue IV Zosyn - discuss home regimen with GI tomorrow Discussed with Dr. Coleman - he did speak with surgery in [place] but they do not feel inpatient transfer would be beneficial at this point. Plan is for patient to go home on TPN for 2 weeks and hold on further tube feeds. She can receive meds through her tube. She will follow up with GI in [place] in 2 weeks to evaluate. (2) ALS (amyotrophic lateral sclerosis): Patient has a terminal illness with no cure. Majority of patients live 2-5 years past time of diagnosis. Resume Rilazole per neurology recommendation Patient is treated by ALS clinic at [place] (3) Dysphagia: Concern with severe dysphagia: patient feels like she can swallow and appears was told by [place] prior to hospital stay that she could eat by mouth. Neurology consulted 02/05 for ALS/dysphagia recommendations Continue prn atropine for secretions (4) Severe protein-calorie malnutrition: Patient has lost 25 pounds in past few months. Likely secondary to dysphagia which is severe. Continue TPN with PICC line, tube feeds on hold (5) Ankylosing spondylitis: D/C meloxicam due to GI bleed Continue tramadol ntinue cyclobenzaprine 5 mg p.o. 3 times daily as needed for stiffness (6) Cerebrovascular disease: Continue clopidogrel 75 mg p.o. every afternoon Continue aspirin 81 mg tablets p.o. every morning (7) Hypothyroidism: Continue IV levothyroxine (8) Impaired fasting glucose: A1c was 5.8 on 04/2018 Diabetic control diet (9) History of CVA (cerebrovascular accident): Continue clopidogrel and atorvastatin aspirin (10) Depression: Continue citalopram 20 mg p.o. every morning (11) DVT prophylaxis: ambulating Dispo: home with TPN with HH, hopefully tomorrow Subjective Ms. Fuentes has no complaints. She is looking forward to going home Review of Systems Review of Systems: All systems reviewed & are unremarkable except as noted in HPI & below Physical Exam Physical Exam: General: no distress Eyes: normal inspection, PERLL Respiratory: chest non tender, clear to auscultation, normal breath sounds, no respiratory distress, no accessory muscle use Cardiac: regular rate and rhythm, no rub or gallop, no murmur, no edema, no jvd GI/: active bowel sounds, no abd pain or tenderness, soft, non distended Extremities: normal range of motion, normal strength, non tender Neuro/Psych: alert and oriented x 3, normal mood and affect Skin: normal color, dry Results & Data Vital Signs (Past 12 Hours) Vital Signs Temp Pulse Resp BP Pulse Ox 02/11/19 15:22 36.6 C 103 H 18 107/61 97 02/11/19 07:17 36.7 C 92 H 18 101/56 L 96 PG Care Time/CCT Total # of Minutes Spent Total Time Spent with Patient: Total time spent is greater than 50% in coordination of care (as documented) at patient's floor/unit and/or counseling patient:
[2019-02-11] MEDS: DICLOFENAC SOD 1% GEL 100 GM TUBE EXT SCH (21:38)
[2019-02-11] MEDS: DiphenhydrAMINE HCL 50 MG/ML VIAL IV PRN (21:46)
[2019-02-12] MEDS: PIPERACILLIN/TAZOBACTAM 3.375 GM in DEXTROSE 5% 100 ML IV SCH ×3 (03:59→20:18)
--- NOTE | 2019-02-12 05:38 | Surgery Progress Note ---
Date of Service February 12, 2019 Assessment & Plan (1) PEG (percutaneous endoscopic gastrostomy) status: plan as outlined prior- and Home Tpn per med team, primary care, home nursing f/u at [facility] for eval Peg tube, old G tube site w/n 2 weeks Hold Tube feeds f/u wound clinic for evaluation of old G tube site F/u with me 2-3 weeks per pt Results & Data Vital Signs (Past 12 Hours) Vital Signs Temp Pulse Resp BP Pulse Ox 02/11/19 23:40 36.7 C 88 16 106/63 96 PG Care Time/CCT Total # of Minutes Spent Total Time Spent with Patient: Total time spent is greater than 50% in coordination of care (as documented) at patient's floor/unit and/or counseling patient:
[2019-02-12 07:29] LABS: BUN Creatinine Ratio 32.9 (10-20); Calcium 8.8 mg/dl (8.5-10.1); Creatinine Clr Calc Pharmacy 51.2 ml/min; Est GFR (African American) 99.5; Est GFR (Non-African American) 85.8; Magnesium 2.1 mg/dl (1.8-2.4); Potassium 3.9 mmol/L (3.5-5.1)
[2019-02-12 07:32] LABS: Phosphorus 4.1 mg/dl (2.5-4.9)
[2019-02-12] MEDS ORDERED: ASPIRIN 300 MG SUPP PR SCH (09:00)
[2019-02-12] MEDS: ENOXAPARIN INJ 40 MG/0.4 ML SYR SQ SCH (09:27)
[2019-02-12] MEDS: DICLOFENAC SOD 1% GEL 100 GM TUBE EXT SCH ×4 (09:27→21:14)
[2019-02-12] MEDS: LIDOCAINE 5% 1 PATCH TD SCH (09:27)
[2019-02-12] MEDS: LEVOTHYROXINE SODIUM 12.5 MCG in SYRINGE 0 ML IV SCH (09:28)
[2019-02-12] MEDS: CITALOPRAM 20 MG TAB PO SCH (10:22)
[2019-02-12] MEDS: PANTOprazole 40 MG TAB PO SCH (10:22)
[2019-02-12] MEDS: CHOLECALCIFEROL 1,000 UNITS TAB PO SCH (10:22)
[2019-02-12] MEDS: ASCORBIC ACID 500 MG TAB PO SCH (10:22)
[2019-02-12] MEDS: MENTHOL-ZINC OXIDE 360 APPLN/120 GM TUBE EXT SCH ×2 (11:06→21:14)
[2019-02-12] MEDS ORDERED: LORazepam 0.25 MG/0.5 ML VIAL IV PRN (13:50)
[2019-02-12] MEDS: ASCORBIC ACID 500 MG TAB PEG SCH (14:02)
[2019-02-12] MEDS: CALCIUM 600MG + VIT D 400 IU TAB PO SCH ×2 (14:02→20:45)
[2019-02-12] MEDS: TOCOPHERYL, DL-ALPHA 400 UNITS CAP PO SCH (14:02)
[2019-02-12] MEDS: CHOLECALCIFEROL 1,000 UNITS TAB PEG SCH (14:03)
[2019-02-12] MEDS ORDERED: CUSTOM CENTRAL PN IV SCH (16:00)
[2019-02-12] MEDS: CITALOPRAM 20 MG TAB PEG SCH (16:35)
[2019-02-12] MEDS: CLOPIDOGREL BISULFATE 75 MG TAB PEG SCH ×2 (16:36→20:46)
[2019-02-12] MEDS: LANSOPRAZOLE 30 MG SOLTAB PEG SCH (16:37)
[2019-02-12] MEDS: ASPIRIN 81 MG CHEW PEG SCH (16:37)
[2019-02-12] MEDS: RILUZOLE 50 MG PO SCH ×2 (16:37→20:45)
--- NOTE | 2019-02-12 17:05 | Hospitalist Progress Note ---
Date of Service February 12, 2019 Assessment & Plan (1) Complication of feeding tube: Ms. Fuentes was admitted on 02/06 due to disfunction of her feeding tube Initial CT showed: lateral to the gastrostomy tube to the left of midline, there is a small fluid collection containing air bubbles measuring 13 mm. This could represent an abscess. Pt s/p EGD on 02/05 - old eroding G tube removed, perforation closed w endoloop, w new PEG tube placed. Patient has been having some continued leaking around the site. Tube feeds were placed on hold by GI 02/10. Parenteral nutrition to be continued via PICC CT 02/10 - Decrease in size of a tiny 1.4 cm fluid and gas containing collection within the subcutaneous tissues inferior to the new gastrostomy site since CT of February 13, 2019. Interval decrease in adjacent inflammation. No additional fluid collections. Continue IV Zosyn - will dc with IV Zosyn through until follow up in [place] Discussed with Dr. Coleman - he did speak with surgery in [place] but they do not feel inpatient transfer would be beneficial at this point. Plan is for patient to go home on TPN for 2 weeks and hold on further tube feeds. She can receive meds through her tube. She will follow up with GI in [place] in 2 weeks to evaluate. 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 Wound care will place collection pouch over site. Dr. Coleman did update [place] surgery and they feel that plan should remain as above (2) ALS (amyotrophic lateral sclerosis): Patient has a terminal illness with no cure. Majority of patients live 2-5 years past time of diagnosis. Resume Rilazole per neurology recommendation Patient is treated by ALS clinic at [place] (3) Dysphagia: Concern with severe dysphagia: patient feels like she can swallow and appears was told by [place] prior to hospital stay that she could eat by mouth. Neurology consulted 02/05 for ALS/dysphagia recommendations Continue prn atropine for secretions (4) Severe protein-calorie malnutrition: Patient has lost 25 pounds in past few months. Likely secondary to dysphagia which is severe. Continue TPN with PICC line, tube feeds on hold (5) Ankylosing spondylitis: D/C meloxicam due to GI bleed Continue tramadol continue cyclobenzaprine 5 mg p.o. 3 times daily as needed for stiffness (6) Cerebrovascular disease: Continue clopidogrel 75 mg p.o. every afternoon Continue aspirin 81 mg tablets p.o. every morning (7) Hypothyroidism: Continue IV levothyroxine (8) Impaired fasting glucose: A1c was 5.8 on 04/2018 Diabetic control diet (9) History of CVA (cerebrovascular accident): Continue clopidogrel and atorvastatin aspirin (10) Depression: Continue citalopram 20 mg p.o. every morning (11) DVT prophylaxis: ambulating Dispo: home with TPN, IV abx with HH, hopefully tomorrow Subjective Ms. Fuentes denies any pain or discomfort. She is looking forward to discharge. and niece updated at bedside Review of Systems Review of Systems: All systems reviewed & are unremarkable except as noted in HPI & below Physical Exam Physical Exam: General: no distress Eyes: normal inspection, PERLL Respiratory: chest non tender, clear to auscultation, normal breath sounds, no respiratory distress, no accessory muscle use Cardiac: regular rate and rhythm, no rub or gallop, no murmur, no edema, no jvd GI/: active bowel sounds, no abd pain or tenderness, soft, non distended Extremities: normal range of motion, normal strength, non tender Neuro/Psych: alert and oriented x 3, normal mood and affect Skin: normal color, dry Results & Data Vital Signs (Past 12 Hours) Vital Signs Temp Pulse Resp BP Pulse Ox 02/12/19 14:59 36.7 C 91 H 18 136/78 95 02/12/19 07:30 36.6 C 89 18 112/58 L 93 PG Care Time/CCT Total # of Minutes Spent Total Time Spent with Patient: Total time spent is greater than 50% in coordination of care (as documented) at patient's floor/unit and/or counseling patient:
[2019-02-12] MEDS: DEXTROSE 10% 1,000 ML IV SCH (17:59)
[2019-02-12] MEDS: LORazepam 0.25 MG/0.5 ML VIAL IV PRN (20:18)
[2019-02-12] MEDS ORDERED: ATORVASTATIN 40 MG TAB PEG SCH (21:00)
[2019-02-12] MEDS: DiphenhydrAMINE HCL 50 MG/ML VIAL IV PRN (21:55)
[2019-02-13] MEDS: PIPERACILLIN/TAZOBACTAM 3.375 GM in DEXTROSE 5% 100 ML IV SCH ×2 (03:58→12:07)
--- NOTE | 2019-02-13 06:12 | Surgery Progress Note ---
Date of Service February 13, 2019 Assessment & Plan (1) PEG (percutaneous endoscopic gastrostomy) status: pts vitals stable- awake , alert, min drainage in bag Home Tpn per med team, primary care, home nursing f/u at [place] for eval Peg tube, old G tube site w/n 2 weeks also Gen surg- allow fistula site to heal if possible would require major surgery to attempt closure if doesn't heal Hold Tube feeds f/u wound clinic for evaluation of old G tube site F/u with me 2-3 weeks per pt If pt fails treatment at home , would need transfer to tertiary center- [place] / [facility] Results & Data Vital Signs (Past 12 Hours) Vital Signs Temp Pulse Resp BP Pulse Ox 02/13/19 00:01 36.7 C 102 H 18 104/67 97 PG Care Time/CCT Total # of Minutes Spent Total Time Spent with Patient: Total time spent is greater than 50% in coordination of care (as documented) at patient's floor/unit and/or counseling patient:
[2019-02-13 06:58] LABS: BUN Creatinine Ratio 31.7 (10-20); Calcium 8.7 mg/dl (8.5-10.1); Creatinine Clr Calc Pharmacy 51.2 ml/min; Est GFR (African American) 99.5; Est GFR (Non-African American) 85.8; Magnesium 2.1 mg/dl (1.8-2.4); Potassium 3.8 mmol/L (3.5-5.1)
[2019-02-13 06:59] LABS: Phosphorus 3.7 mg/dl (2.5-4.9)
[2019-02-13] MEDS: ASCORBIC ACID 500 MG TAB PEG SCH (07:13)
[2019-02-13] MEDS: CALCIUM 600MG + VIT D 400 IU TAB PO SCH ×2 (07:13→12:52)
[2019-02-13] MEDS: CHOLECALCIFEROL 1,000 UNITS TAB PEG SCH (07:13)
[2019-02-13] MEDS: TOCOPHERYL, DL-ALPHA 400 UNITS CAP PO SCH (07:14)
[2019-02-13] MEDS: LEVOTHYROXINE SODIUM 12.5 MCG in SYRINGE 0 ML IV SCH (09:25)
[2019-02-13] MEDS: LIDOCAINE 5% 1 PATCH TD SCH (09:25)
[2019-02-13] MEDS: DICLOFENAC SOD 1% GEL 100 GM TUBE EXT SCH ×2 (09:25→13:39)
[2019-02-13] MEDS: RILUZOLE 50 MG PO SCH (09:26)
[2019-02-13] MEDS: ENOXAPARIN INJ 40 MG/0.4 ML SYR SQ SCH (09:26)
[2019-02-13] MEDS: LANSOPRAZOLE 30 MG SOLTAB PEG SCH (09:27)
[2019-02-13] MEDS: CITALOPRAM 20 MG TAB PEG SCH (09:28)
[2019-02-13] MEDS: MENTHOL-ZINC OXIDE 360 APPLN/120 GM TUBE EXT SCH (09:28)
[2019-02-13] MEDS: ASPIRIN 81 MG CHEW PEG SCH (10:44)
--- NOTE | 2019-02-13 14:16 | Discharge Summary ---
Date of Service February 13, 2019 Admission HPI Per Admitting Provider Patient is a 68 years old female with a past medical history of ankylosing spondylitis, dysphagia due to prior CVA, osteoarthritis, psoriasis, ALS, pulmonary embolism, who presents to the emergency room with a complaint of episode of PEG tube complications that started this morning. Patient reports small amount of bleeding that she noted from the tube. PEG tube was placed 9 days ago due to the patient's recent diagnosis with ALS. Patient states that patient has been having difficulties with the PEG tube leak especially the first day because she was fed 120 cc of water/120 cc of feeding and another 120 cc of water. Patient said that point she had severe leakage and next day she started to see some minor bleeding from the orifice. Feedings are then decreased to 60 mils and that helped better to prevent overflow but patient said she continues to have some bleeding from the surrounding of the tube approximately mildly soaked less than one 2 x 2 gauze. Patient also noticed on small amount of pus is coming out which could be also related to the first day over flow which patient sees as a past. General surgery was called and Dr. Arredondo examined the patient and he recommended to patient to continue normal p.o. and not to use the tube at this time and he will reexamine her tomorrow. Labs are reviewed: WBC 6.38, hemoglobin 13.5, hematocrit 39.5 platelets 268, PT 10.2 INR 1 APTT 23.8, sodium 137, potassium 4, chloride 104 BUN 21, creatinine 0.78, GFR 79.2 calcium 9.2. KUB done patient gastrostomy tube is positioned within the stomach. Decision was made to admit patient for observation on telemetry and to manage her PEG tube feeding complications. Principal Diagnosis Feeding tube dysfunction Discharge Exam Constitutional WD/WN, vitals as above Respiratory normal respiratory effort, lungs clear to auscultation Cardiovascular RRR, no murmur, no edema Gastrointestinal (Abdomen) Inspection/Auscultation: abdomen normal to inspection and normal bowel sounds; abdomen not distended Percussion/Palpation: abdomen soft; abdomen nontender Skin no drainage from wound site Discharge Data Allergies Allergy/AdvReac Type Severity Reaction Status Date / Time No Known Drug Allergies Allergy Unknown . Verified 02/01/19 11:51 ciprofloxacin Allergy Irritable Verified 02/04/19 18:57 Consultations 02/01/19 12:56 ED Decision to Admit Stat 02/01/19 16:13 Consult General Surgery Routine 02/02/19 15:24 Consult Case Management - Discharge Planning Routine 02/03/19 05:16 Consult Gastroenterology Routine 02/04/19 11:01 Consult Neurology Routine 02/04/19 11:15 Consult Gastroenterology Routine Procedures Performed Operation Date: 02/05/19 08:30 Actual Procedures p EGD Gastric Tube Placement - Payal Dougherty MD Ordered Studies 02/03/19 08:50 CT abdomen w IV con Urgent 02/10/19 12:44 CT abd pelvis IV con only Routine 02/11/19 12:30 FL upper GI with air RTN Routine Hospital Course (1) Complication of feeding tube: Ms. Fuentes was admitted on 02/06 due to disfunction of her feeding tube Initial CT showed: lateral to the gastrostomy tube to the left of midline, there is a small fluid collection containing air bubbles measuring 13 mm. This could represent an abscess. Pt s/p EGD on 02/05 - old eroding G tube removed, perforation closed w endoloop, w new PEG tube placed. Patient has been having some continued leaking around the site. Tube feeds were placed on hold by GI 02/10. Parenteral nutrition to be continued via PICC CT 02/10 - Decrease in size of a tiny 1.4 cm fluid and gas containing collection within the subcutaneous tissues inferior to the new gastrostomy site since CT of February 13, 2019. Interval decrease in adjacent inflammation. No additional fluid collections. Continue IV Zosyn - will dc with IV Zosyn through until follow up in [place] Discussed with Dr. Coleman - he did speak with surgery in [place] but they do not feel inpatient transfer would be beneficial at this point. Plan is for patient to go home on TPN for 2 weeks and hold on further tube feeds. She can receive meds through her tube per Dr. Coleman. She will follow up with GI in [place] in 2 weeks to evaluate. 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 Wound placed collection pouch over site. Dr. Coleman did update [place] surgery and they feel that plan should remain as above (2) ALS (amyotrophic lateral sclerosis): Patient has a terminal illness with no cure. Majority of patients live 2-5 years past time of diagnosis. Resume Rilazole per neurology recommendation Patient is treated by ALS clinic at [place] (3) Dysphagia: Concern with severe dysphagia: patient feels like she can swallow and appears was told by [place] prior to hospital stay that she could eat by mouth. Neurology consulted 02/05 for ALS/dysphagia recommendations Continue prn atropine for secretions NPO, only TPN for nutrition for now until outpatient follow up in [place] (4) Severe protein-calorie malnutrition: Patient has lost 25 pounds in past few months. Likely secondary to dysphagia which is severe. Continue TPN with PICC line, tube feeds on hold (5) Ankylosing spondylitis: D/C meloxicam due to GI bleed Continue tramadol continue cyclobenzaprine 5 mg p.o. 3 times daily as needed for stiffness (6) Cerebrovascular disease: Continue clopidogrel 75 mg p.o. every afternoon Continue aspirin 81 mg tablets p.o. every morning (7) Hypothyroidism: Continue IV levothyroxine (8) Impaired fasting glucose: A1c was 5.8 on 04/2018 Diabetic control diet (9) History of CVA (cerebrovascular accident): Continue clopidogrel and atorvastatin aspirin (10) Depression: Continue citalopram 20 mg p.o. every morning (11) DVT prophylaxis: ambulating Dispo: home with TPN, IV abx with HH Total Time Total Time Spent Total Time Spent (In Minutes): greater than 30 minutes Discharge Plan Discharge Items Patient Disposition: Home - Home Health Services Reason For Visit: COMPLICATION OF THE FEEDING TUBE Discharge Diagnosis: Complication of feeding tube Activity: Resume your previous activity Non-emergency contact: Primary Care Provider Call non-emergency contact if: you have any medication questions, your symptoms worsen, your pain is not controlled and you have a fever Follow-up/Referrals: Dr. Sharon Kamara [Other] (Please, follow up at [facility] Gastroenterology Office with Dr. Sharon Kamara on SundayFebruary 25 at 2:20 pm. *The office is located at [address] in [place]. You will use [id number]. If you have any questions, call the office at [phone].) [facility] [Provider Group] - 02/19/19 1:00 pm (Please, follow up at [facility] on SundayFebruary 19 at 1:00 pm. *The wound clinic is located at [address] in [place]. If you need to change this appointment, call the clinic at [phone].) Jeff Dawn III, MD [Primary Care Provider] - 02/17/19 1:45 pm (Please, follow up with Dr. Dawn on SundayFebruary 17 at 1:45 pm. *If you need to change this appointment, call the office at [phone].) Leroy Collins, [Surgeon] - (please call office for specific time- [phone]) Taj Dubose [Staff Physician] - (Please, follow up with Dr. Taj Dubose at the [facility] Surgery Office. *Your records are being sent to his office, they will review them, and then call you with the appointment details. If you have any questions, call his office at [phone] option # 4.) Diet: Pediatric Infant Addtl Attending Provider Instructions: You may take your medications via your feeding tube as you normally would but nothing else until you have discussed it at follow up with [place] gastroenterologists. Please follow up n 2-[address] Coleman Please ignore the above diet, this form requires a diet be selected. You should remain nothing by mouth and no feeds via feeding tube, TPN only for nutrition until your follow up physician says otherwise You will receive TPN and IV Zosyn from home health Your home health nurse will meet you tonight between 7:30 and 8:00 Home health will need to draw a CBC and CMP at least weekly to monitor your blood count and kidney function while receiving IV antibiotics Pending Studies at Discharge: No Stand-Alone Forms: [facility] Medications and DC Order Prescriptions: New piperacillin-tazobactam [Zosyn] 3.375 gram recon soln 3.375 gm IV Q6H 21 Days RF: 0 Continued ascorbic acid (vitamin C) 500 mg/5 mL syrup 500 mg feeding tube DAILY Qty: 473 RF: 0 atorvastatin 80 mg tablet 80 mg feeding tube QAM RF: 0 aspirin [Adult Low Dose Aspirin] 81 mg tablet,delayed release (DR/EC) 81 mg feeding tube QAM RF: 0 beta carotene 10,000 unit capsule 7,500 unit feeding tube QAM RF: 0 calcium citrate-vitamin D3 1,000 mg-400 unit/30 mL liquid 30 ml PO DAILY RF: 0 citalopram 10 mg/5 mL solution 20 mg feeding tube DAILY Qty: 300 RF: 5 clopidogrel [Plavix] 75 mg tablet 75 mg feeding tube QPM RF: 0 coQ10 (ubiquinol) 200 mg capsule 200 mg PO QAM RF: 0 cyclobenzaprine 5 mg tablet 5 mg feeding tube TID PRN (Reason: Muscle Spasm) Qty: 30 RF: 0 hydrocodone-acetaminophen 10-325 mg/15 mL(15 mL) solution 7.5 ml feeding tube TID PRNRF: 0 levothyroxine 25 mcg tablet 25 mcg feeding tube HS RF: 0 multivitamin with minerals syrup 10 ml feeding tube DAILY Qty: 473 RF: 0 riluzole 50 mg tablet 50 mg feeding tube BID RF: 0 vitamin E 100 unit/0.25 mL drops 400 units PO QAM Qty: 74 RF: 0 lansoprazole 15 mg tablet,disintegrat, delay rel 15 mg feeding tube DAILY Qty: 30 RF: 11 triamcinolone acetonide 0.1 % paste 1 appln DT TID PRN (Reason: mouth irritation) Qty: 5 RF: 3 cholecalciferol (vitamin D3) [Vitamin D3] 5,000 unit Tablet 5,000 unit PO QAM RF: 0 Discontinued meloxicam 15 mg tablet 15 mg feeding tube QAM RF: 0 Discharge Orders: Discharge Order (Routine); Ordered 02/13/19 Ordered By: Emely Cameron Admission Data Admit Date/Time: 02/03/19 16:27 Attending Provider: Juan Mayberry Admit Provider: Subha Her Primary Care Provider: Jeff Dawn III Other Providers: Subha Her ; Ashvin Coleman ; Joey Fowler ; Wilson Hill ; Payal Dougherty Other Interventions: Discharge Summary Assessment (RN) Last Done: 02/13/19 11:56
--- NOTE | 2019-02-13 15:38 | Surgery Progress Note ---
Date of Service February 13, 2019 Assessment & Plan (1) PEG (percutaneous endoscopic gastrostomy) status: unclear to me why original tube did not seal. ? nutritional issue. should seal off with improving nutrition status. f/u in office in 2-3 weeks. (2) ALS (amyotrophic lateral sclerosis): (3) Complication of feeding tube: Subjective pt seen. feeling much better. very minimal output from old feeding tube site. Physical Exam Physical Exam: wound looks good. no drainage now. minimal inflammation. ostomy bag in position. Results & Data Vital Signs (Past 12 Hours) Vital Signs Temp Pulse Resp BP Pulse Ox 02/13/19 07:10 36.6 C 89 16 122/78 98 PG Care Time/CCT Total # of Minutes Spent Total Time Spent with Patient: Total time spent is greater than 50% in coordination of care (as documented) at patient's floor/unit and/or counseling patient:
[2019-02-13] MEDS ORDERED: PIPERACILLIN/TAZOBACTAM 3.375 GM in DEXTROSE 5% 100 ML IV SCH (18:00)
== END 2019-02-13 15:40 | disposition home health service (06) | DRG 326 ==
LOC: ED 11:29 → 2S 11:29 → SUATTDRO 15:06 → 2S 15:44 → SUATTDRO 02-03 16:27 → 3N 02-09 17:06